=== PATIENT | male | born 1950 | race Two or more races ===

== ENCOUNTER 2019-12-04 05:40 | Inpatient (IN) | payer MEDICARE, MEDICAID ==
[2019-12-04] VITALS (20 sets, daily range): BP systolic 129–172; BP diastolic 72–93
[~2019-12-04] VITALS: Ht 167.6 cm; Wt 81.6 kg
[~2019-12-04 05:40] MED LIST: ceFAZolin sod 1 GM in NS 55 ML IVPB ONE
[2019-12-04] MEDS ORDERED: DIOVAN320 MG ORAL (06:45)
[2019-12-04] MEDS ORDERED: AMLODIPINE BESYL5 MG ORAL (06:45)
[2019-12-04] MEDS ORDERED: CARVEDILOL12.5 MG ORAL (06:45)
[2019-12-04] MEDS ORDERED: LR 1000ml 1,000 ML IVLG SCH (07:17)
--- NOTE | 2019-12-04 07:21 | Anethesia Preoperative Eval ---
Anesthesia Pre-op PMH/ROS General Date of Evaluation: December 04, 2019 Time of Evaluation: 07:26 Anesthesiologist: Sae ASA Score: ASA 3 Mallampati Score Class I : Soft palate, uvula, fauces, pillars visible Class II: Soft palate, uvula, fauces visible Class III: Soft palate, base of uvula visible Class IV: Only hard plate visible Mallampati Classification: Class III Surgeon: Neftali Diagnosis: Bladder Cancer Surgical Procedure: Radical Cystectomy with Neobladder Anesthesia History: none Family History: no anesthesia problems Allergies: Coded Allergies: No Known Allergies (Unverified , 12/04/19) Medications: see eMAR Patient NPO?: Yes NPO Date: December 03, 2019 NPO Time: 1900 Past Medical History Cardiovascular: Reports: HTN Gastrointestinal/Genitourinary: Reports: GERD, other - BPH, Bladder CA Other: obesity - BMI 31 PSxH Narrative: TURBT Anesthesia Pre-op Phys. Exam Physician Exam Last Vital Signs Date Time Temp Pulse Resp B/P (MAP) Pulse Ox O2 Delivery O2 Flow Rate FiO2 12/04/19 06:48 Room Air 12/04/19 06:24 97.4 46 18 147/86 (106) 97 Constitutional: NAD Neurologic: CN 2-12 intact Cardiovascular: RRR Respiratory: CTA Gastrointestinal: S/NT/ND Airway Exam Mallampati Score: Class III MO: limited ROM: limited Teeth: missing Dentures: upper, lower Anesthesia Pre-op A/P Risk Assessment & Plan Assessment: ASA 3 Plan: GA, SED, GlideScope Status Change Before Surgery: No Pre-Antibiotics Dru Mg Flagyl, 2 Grams Cefoxitin IV Given Within 1 Hr of Incision: Yes Time Given: 07:51 Niraj Quevedo MD December 04, 2019 07:21
[2019-12-04] MEDS ORDERED: Rocuronium Bromide 50mg/5ml Inj IV ONE (07:23)
[2019-12-04] MEDS ORDERED: Midazolam 2mg/2ml Inj IVP PRN (07:30)
[2019-12-04] MEDS ORDERED: LR 1000ml ONE (07:30)
[2019-12-04] MEDS ORDERED: oxyCODONE HCL/Acetaminophen 5/325mg ORAL PRN (07:30)
[2019-12-04] MEDS ORDERED: Acetaminophen (Non formulary) 100 ML IV ONE (07:30)
[2019-12-04] MEDS ORDERED: HYDROcodone/Acetamin 7.5/325 tab ORAL PRN (07:30)
[2019-12-04] MEDS ORDERED: DiphenhydrAMINE 50mg/ml Inj IVP PRN (07:30)
[2019-12-04] MEDS ORDERED: Ketorolac 30mg Inj IV PRN ×2 (07:30)
[2019-12-04] MEDS ORDERED: Sterile Water Irrig 1000ml IRRIG ONE (07:30)
[2019-12-04] MEDS ORDERED: NS Irrig 1000ml ONE (07:30)
[2019-12-04] MEDS ORDERED: Metoclopramide 10mg/2ml Inj IVP PRN (07:30)
[2019-12-04] MEDS ORDERED: Labetalol 5mg/ml 20ml vial IV PRN (07:30)
[2019-12-04] MEDS ORDERED: fentaNYL 100 mcg/2 mL IV PRN (07:30)
[2019-12-04] MEDS ORDERED: Meperidine 25mg/0.5ml Inj (FOR RIGORS ONLY) IV PRN (07:30)
[2019-12-04] MEDS ORDERED: Atropine Sulfate 0.4mg/ml inj IVP PRN (07:30)
[2019-12-04] MEDS ORDERED: HYDROcodone/Acetamin 5/325 tab ORAL PRN (07:30)
[2019-12-04] MEDS ORDERED: LORazepam Inj 2mg/ml 1ml IV PRN (07:30)
[2019-12-04] MEDS ORDERED: Hydromorphone 0.5mg/0.5ml inj IVP PRN (07:30)
[2019-12-04] MEDS ORDERED: Sodium Chloride 10ml vial INJ ONE (07:37)
[2019-12-04] MEDS ORDERED: Dexamethasone 4mg/ml vial ONE (07:37)
[2019-12-04] MEDS ORDERED: Lidocaine 1% MPF 10mg/ml 5ml ONE (07:37)
[2019-12-04] MEDS ORDERED: fentaNYL 100 mcg/2 mL IV ONE ×2 (07:42→08:44)
[2019-12-04] MEDS ORDERED: ProvayBlue 5mg/ml 10ml amp INJ ONE (07:45)
[2019-12-04] MEDS ORDERED: cefOXitin 2gm Inj ONE (07:48)
[2019-12-04] MEDS ORDERED: NS Irrig 1000ml IRRIG ONE (08:00)
--- NOTE | 2019-12-04 08:14 | Pre-Procedure Note/Attestation ---
Pre-Procedure Note/Attestation Complete Prior to Procedure Planned Procedure: not applicable Procedure Narrative: cysto prostatectomy with neobladder Indications for Procedure Pre-Operative Diagnosis: bladder cancer Attestation I attest that I discussed the nature of the procedure; its benefits; risks and complications; and alternatives (and the risks and benefits of such alternatives ), prior to the procedure, with the patient (or the patient's legal practice representative). I attest that, if there was a reasonable possibility of needing a blood transfusion, the patient (or the patient's legal practice representative) was given the [facility] standardized written summary, pursuant to the Osmar Harvey Blood Safety Act ([place] Health and Safety Code # 1645, as amended). I attest that I re-evaluated the patient just prior to the surgery and that there has been no change in the patient's H&P, except as documented below: Darci Lindsay MD December 04, 2019 08:14
--- NOTE | 2019-12-04 08:38 | Immediate Post-Op Evaluation ---
Immediate Post-Op Evalulation Immediate Post-Op Evalulation Procedure: Radical Cystectomy with Neobladder Date of Evaluation: December 04, 2019 Time of Evaluation: 12:37 IV Fluids: 2000 LR Blood Products: 1000 ALB Estimated Blood Loss: 200 Urinary Output: 200 Blood Pressure Systolic: 162 Blood Pressure Diastolic: 88 Pulse Rate: 67 Respiratory Rate: 16 O2 Sat by Pulse Oximetry: 98 Temperature (Fahrenheit): 98.7 Pain Score (1-10): 2 Nausea: No Vomiting: No Complications 0 Patient Status: awake, reacts, patent, extubated, none Hydration Status: adequate Dru Mg Flagyl, 2 Grams Cefoxitin IV Given Within 1 Hr of Incision: Yes Time Given: 07:51 Niraj Quevedo MD December 04, 2019 08:38
[2019-12-04] MEDS ORDERED: Glycopyrrolate 0.2mg/ml 1ml Vial ONE (11:44)
--- NOTE | 2019-12-04 12:16 | Brief Operative Note ---
Immediate Post Operative Note Operative Note Pre-op Diagnosis: bladder cancer Procedure: radical cystectomy and prostatectomy neobladder Post-op Diagnosis: same Post-op Diagnosis: same as pre-op Surgeon: Mayo Lindsay Ware Carrier: David Eaton Anesthesia: general Specimen: yes Complications: none Condition: stable Fluids: 4000 Estimated Blood Loss: minimal Drains: PELON Implant(s) used?: No Darci Lindsay MD December 04, 2019 12:16
[2019-12-04 13:02] LABS: BASOPHILS % (AUTO) 0.9 % (0.0-2.0); EOSINOPHILS % (AUTO) 0.1 % (0.0-3.0); HEMATOCRIT 38.3 % (42.0-52.0); HEMOGLOBIN 12.8 G/DL (14.2-18.0); LYMPHOCYTES % (AUTO) 14.7 % (20.0-45.0); MEAN CORPUSCULAR VOLUME 89 FL (80-99); MONOCYTES % (AUTO) 5.7 % (1.0-10.0); NEUTROPHILS % (AUTO) 78.6 % (45.0-75.0); PLATELET COUNT 141 K/UL (150-450); RED BLOOD COUNT 4.31 M/UL (4.70-6.10); RED CELL DISTRIBUTION WIDTH 14.3 % (11.6-14.8); WHITE BLOOD COUNT 5.5 K/UL (4.8-10.8)
[2019-12-04 13:28] LABS: ANION GAP 15 mmol/L (5-15); BLOOD UREA NITROGEN 14 mg/dL (7-18); CALCIUM 7.9 MG/DL (8.5-10.1); CARBON DIOXIDE 20 MMOL/L (21-32); CHLORIDE 108 MMOL/L (98-107); POTASSIUM 4.4 MMOL/L (3.5-5.1); SODIUM 143 MMOL/L (136-145)
--- NOTE | 2019-12-04 13:45 | NUR ---
NURSE NOTES: Patient arrived safely to 3E, room 321. Vital sign are stable, patient is asleep. Serosanguinous drainage noted from PELON, suprapubic catheter and guzman catheter. IV is patent and asymptomatic, running fluids as ordered. Bed is in low and locked position, side rails up x2, call light within reach.
--- NOTE | 2019-12-04 14:15 | NUR ---
NURSE NOTES: Patient's systolic blood pressure above 160, Doctor Janessa was called. However, when patient was given IV pain medication, his blood pressure dropped to 129/75. No new orders were given, but home PO meds are to held until further notice per Dr. jones.
--- NOTE | 2019-12-04 15:29 | NUR ---
CASE MANAGEMENT: INITIAL REVIEW 69YR OLD MALE HERE FOR ELECTIVE SURGERY CC: BLADDER CANCER SI:BLADDER CANCER 97.4 46 18 147/86 97% ON RA BG 173 CA+7.9 IS: IN SURGERY NOW RADICAL OPEN CYSTECTOMY, HEMICOLECTOMY AND PROSTATECTOMY NEOBLADDER ILEO CONDUIT URINARY DIVERSION, AND APPENDECTOMY IV ANCEF X1 IVF NS BOLUS X1 \: 3E MED SURG UNIT DCP: HOME WHEN STABLE
[2019-12-04] MEDS: D5 1/2NS w/KCl 20mEq 1,000 ML IV SCH ×2 (16:45→23:46)
[2019-12-04] MEDS: cefOXitin Sod 2 GM in D5W 110 ML IV SCH ×2 (16:45→21:10)
--- NOTE | 2019-12-04 19:30 | NUR ---
NURSE NOTES: Report received from TRAVIS Conroy. Patient in stable condition. Alert and oriented x 4. NC on 3L. No acute distress. PELON drain noted in the Left side. Patient has a guzman patent and draining, bright red output. Patient also has suprapubic RUQ Draining well. Patient reports pain aggravated by movement. IVF running and access is intact. Bed is in low and locked positionn. Side rails up x.2. Will monitor patient.
--- NOTE | 2019-12-04 19:35 | NUR ---
HAND-OFF: Report given to TATUM ROBLES.
[2019-12-05] VITALS: BP 100/59
[2019-12-05] MEDS: cefOXitin Sod 2 GM in D5W 110 ML IV SCH (03:52)
[2019-12-05 04:00] VITALS: BP 98/63
--- NOTE | 2019-12-05 04:08 | NUR ---
NURSE NOTES: AT 0000 Vs check, patient had a fever of 100.3 F. Tylenol 650 mg PRN given. Encouraged patient to deep breathe and use IS at bedside. Reassessed temperature, patient is now afebrile with 98.3 F temp. Will continue to monitor.
--- NOTE | 2019-12-05 06:10 | NUR ---
NURSE NOTES: During my shift, patient had a total suprapubic urine output of 400 mL, bright red serosanguinous output. PELON drain drained 35 mL bright red output. Michael catheter output was 5mL dark savanna fluid. Encouraged patient to deep breath and use IS at bedside. Pain well controlled with Dilaudid IV Q3. Patient comfortable and no apparent distress.
[2019-12-05 07:16] LABS: BASOPHILS % (AUTO) 0.2 % (0.0-2.0); EOSINOPHILS % (AUTO) 0.1 % (0.0-3.0); HEMATOCRIT 37.4 % (42.0-52.0); HEMOGLOBIN 12.6 G/DL (14.2-18.0); LYMPHOCYTES % (AUTO) 14.4 % (20.0-45.0); MEAN CORPUSCULAR VOLUME 89 FL (80-99); MONOCYTES % (AUTO) 6.8 % (1.0-10.0); NEUTROPHILS % (AUTO) 78.6 % (45.0-75.0); PLATELET COUNT 161 K/UL (150-450); RED CELL DISTRIBUTION WIDTH 14.3 % (11.6-14.8); WHITE BLOOD COUNT 9.8 K/UL (4.8-10.8)
[2019-12-05 07:18] LABS: ANION GAP 9 mmol/L (5-15); BLOOD UREA NITROGEN 16 mg/dL (7-18); CALCIUM 7.8 MG/DL (8.5-10.1); CARBON DIOXIDE 24 MMOL/L (21-32); CHLORIDE 107 MMOL/L (98-107); CREATININE 1.8 MG/DL (0.55-1.30); POTASSIUM 4.5 MMOL/L (3.5-5.1); SODIUM 140 MMOL/L (136-145)
--- NOTE | 2019-12-05 07:55 | NUR ---
NURSE NOTES: Report given to TRAVIS Cook. Patient in stable condition,
[2019-12-05 08:00] VITALS: BP 133/69
[2019-12-05] MEDS: D5 1/2NS w/KCl 20mEq 1,000 ML IV SCH ×3 (08:29→22:02)
--- NOTE | 2019-12-05 08:45 | NUR ---
NURSE NOTES: Received report from Pat ROBLES. Patient is awake and oriented, reporting abdominal pain rated 8/10, medicated per order. Surgical site dry and intact. SCD's on. Michael to gravity drainage, suprapubic catheter draining, both draining red colored urine. PELON drain compressed. IVF running per order. Patient updated on plan of care for the day. Side rails upx2, bed low and locked, call light within reach, bed alarm armed.
--- NOTE | 2019-12-05 10:08 | NUR ---
P.T Note: P.T consult received. P.T evaluation/tx attempted however pt unable to participate due to severe pain in abdomen aggravated by movement despite pain medication taken prior to P.T attempt. Will retry as patient tolerates. RN notified.
[2019-12-05 12:00] VITALS: BP 131/69
[2019-12-05] MEDS ORDERED: cefOXitin 2gm Inj IM SCH (12:00)
[2019-12-05] MEDS: cefOXitin 2gm in D5W 110ml IVPB SCH ×2 (12:47→17:43)
--- NOTE | 2019-12-05 13:23 | 48 Hour Post Anesthesia Eval ---
Post Anesthesia Evaluation Procedure: Radical Cystectomy with Neobladder Date of Evaluation: December 05, 2019 Time of Evaluation: 13:21 Blood Pressure Systolic: 132 0: 76 Pulse Rate: 78 Respiratory Rate: 18 Temperature (Fahrenheit): 97.5 O2 Sat by Pulse Oximetry: 98 Airway: patent Nausea: No Vomiting: No Pain Intensity: 3 Hydration Status: adequate Cardiopulmonary Status: stable Mental Status/LOC: patient returned to baseline Follow-up Care/Observations: n/a Post-Anesthesia Complications: none Follow-up care needed: N/A Edy Barrientos MD December 05, 2019 13:23
[2019-12-05 16:00] VITALS: BP 125/67
--- NOTE | 2019-12-05 16:08 | NUR ---
P.T Note: late entry 1330 P.T evaluation reattempted this PM and completed. Pt. premedicated prior to P.T evaluation. Pt demonstrated limited participation in ADL/functional mobility and gait/locomotion secondary to dizziness and increased pain on the abdomen ( surgical site. Pt required extended time and MOD A X 1 to transition from supine to/from sitting position and MIN A x 1 to transition from sitting to/from standing. Pt was able to ambulate and tolerate 25 ft using the FWW with MIN A X 1. Pt encouraged to sit in chair/recliner however requested to go back to bed due to fatigue dizziness. Vitals taken and remain stable. Will progress activities as tolerated. Pt is cleared for OOB activities with nursing assist and FWW in the room.
--- NOTE | 2019-12-05 16:44 | Consultation ---
DATE OF CONSULTATION: 12/05/2019 INTERNAL MEDICINE CONSULTATION HISTORY OF PRESENT ILLNESS: This is a 69-year-old male who has undergone urologic surgery yesterday by Dr. Darci Lindsay. The surgery consisted of radical cystectomy and prostatectomy as well as neobladder formation. Currently, patient states he is feeling well. PAST MEDICAL HISTORY: Notable for bladder carcinoma, hypertension, hyperlipidemia, degenerative joint disease, osteoarthritis, hypovitaminosis D. HOME MEDICATIONS: Norvasc, Coreg, valsartan, Proscar, Naprosyn, and vitamin D. SOCIAL HISTORY: Denies alcohol and tobacco usage. REVIEW OF SYSTEMS: Denies any headaches, hematemesis, melena, hematochezia. PHYSICAL EXAMINATION: GENERAL: Reveals a 69-year-old male. VITAL SIGNS: Currently blood pressure 130/60, heart rate 60, respirations , afebrile. HEENT: Unremarkable. LUNGS: Clear breath sounds. ABDOMEN: Soft. NEUROLOGIC: Nonfocal. LABORATORY DATA: Lab testing preoperatively is unremarkable. Postoperatively, his hemoglobin is 10.6, white count is normal. Creatinine 1.8. IMPRESSION: 1. Postop day #1 status post cystectomy, prostatectomy and neobladder formation. 2. Hypertension. DISCUSSION: Admitted to the hospital. Continue postoperative care. IV fluids. Advance diet once cleared by Surgery. Currently, the patient is NPO. We will follow carefully. Lázaro Riddle M.D. DR: Amrit JOB#: [id number] CC:
--- NOTE | 2019-12-05 18:15 | Consultation ---
History of Present Illness General Date patient seen: December 05, 2019 Present Illness HPI This is a very pleasant 69 year old male s/p currently admitted post op secondary prostatectomy a neobladder creation with implantation of the ureters into the neobladder internally. Requiring bowel surgery. Postoperative with abd pain, not moving much, drains requiring care. surgery called to evaluate and assist with care. patient seen, chart reviewed, patient examined. discussed care with urology and RN patient laying in bed not very comfortable. States too much pain to move around. Pain control difficult for him currently. Drains noted. Exam as below. Allergies: Coded Allergies: No Known Allergies (Unverified , 12/04/19) COVID-19 Screening Contact w/high risk pt: No Recent Travel to affected area: No Experienced COVID-19 symptoms?: No Medication History Scheduled Amlodipine Besylate* (Amlodipine Besylate*), 5 MG ORAL DAILY, (Reported) Carvedilol* (Carvedilol*), 12.5 MG ORAL EVERY 12 HOURS, (Reported) Valsartan (Diovan), 320 MG ORAL DAILY, (Reported) Patient History History Provided By: Patient, Medical Record, PMD Healthcare decision maker Resuscitation status Advanced Directive on File Past Medical/Surgical History Past Medical/Surgical History: (1) S/P radical cystoprostatectomy Review of Systems Review of Symptoms General ROS: no weight loss or fever Psychological ROS: no depression or mood changes, no memory loss Ophthalmic ROS: no visual changes or eye irritation ENT ROS: no nasal congestion, hearing loss, dizziness Allergy and Immunology ROS: no allergic symptoms or urticaria Hematological and Lymphatic ROS: no swollen glands, unusual bleeding or bruising Endocrine ROS: no polyuria, polydipsia, weight changes, temperature intolerance Respiratory ROS: no cough, shortness of breath, or wheezing Cardiovascular ROS: no chest pain or dyspnea on exertion Gastrointestinal ROS: abdominal pain, bright red blood in stool. Musculoskeletal ROS: no myalgias or arthralgias Neurological ROS: no TIA or stroke symptoms Dermatological ROS: no new or changing skin lesions, rashes or pruritis Physical Exam Physical Exam General appearance: alert, cooperative, no distress, appears stated age Head: Normocephalic, without obvious abnormality, atraumatic Eyes: conjunctivae/corneas clear. PERRL, EOM's intact. Fundi benign Throat: Lips, mucosa, and tongue normal. Teeth and gums normal Neck: supple, symmetrical, trachea midline, no adenopathy, thyroid: not enlarged, symmetric, no tenderness/mass/nodules, no carotid bruit and no JVD Lungs: clear to auscultation bilaterally Heart: regular rate and rhythm, S1, S2 normal, no murmur, click, rub or gallop Abdomen: soft, tender. Bowel sounds absent No masses, no organomegaly, dressings okay. suprapubic drain, guzman, julien drain Extremities: extremities normal, atraumatic, no cyanosis or edema Pulses: 2+ and symmetric Skin: Skin color, texture, turgor normal. No rashes or lesions Neurologic: Grossly normal Last 24 Hour Vital Signs Date Time Temp Pulse Resp B/P (MAP) Pulse Ox O2 Delivery O2 Flow Rate FiO2 12/05/19 16:00 98.5 90 18 125/67 (86) 93 12/05/19 13:23 78 18 98 12/05/19 12:00 98.8 74 18 131/69 (89) 92 12/05/19 09:00 Room Air 12/05/19 08:00 98.7 68 18 133/69 (90) 97 12/05/19 04:00 98.3 75 18 98/63 (75) 97 12/05/19 03:29 100.3 12/05/19 00:28 100.3 12/05/19 00:00 100.3 77 18 100/59 (73) 98 12/04/19 21:00 Nasal Cannula 3.0 12/04/19 20:00 98.7 77 21 148/80 (102) 98 Intake and Output 12/04/19 12/05/19 19:00 07:00 Intake Total 3650 ml 125 ml Output Total 1320 ml 435 ml Balance 2330 ml -310 ml Intake IV Total 2400 ml 125 ml Blood Product 1250 ml Output Urine Total 1180 ml 400 ml Drainage Total 140 ml 35 ml Laboratory Tests Test 12/05/19 05:20 White Blood Count 9.8 K/UL (4.8-10.8) # Red Blood Count 4.20 M/UL (4.70-6.10) L Hemoglobin 12.6 G/DL (14.2-18.0) L Hematocrit 37.4 % (42.0-52.0) L Mean Corpuscular Volume 89 FL (80-99) Mean Corpuscular Hemoglobin 29.9 PG (27.0-31.0) Mean Corpuscular Hemoglobin Concent 33.5 G/DL (32.0-36.0) Red Cell Distribution Width 14.3 % (11.6-14.8) Platelet Count 161 K/UL (150-450) Mean Platelet Volume 8.0 FL (6.5-10.1) Neutrophils (%) (Auto) 78.6 % (45.0-75.0) H Lymphocytes (%) (Auto) 14.4 % (20.0-45.0) L Monocytes (%) (Auto) 6.8 % (1.0-10.0) Eosinophils (%) (Auto) 0.1 % (0.0-3.0) Basophils (%) (Auto) 0.2 % (0.0-2.0) Sodium Level 140 MMOL/L (136-145) Potassium Level 4.5 MMOL/L (3.5-5.1) Chloride Level 107 MMOL/L (98-107) Carbon Dioxide Level 24 MMOL/L (21-32) Anion Gap 9 mmol/L (5-15) Blood Urea Nitrogen 16 mg/dL (7-18) Creatinine 1.8 MG/DL (0.55-1.30) #H Estimat Glomerular Filtration Rate 37.4 mL/min (>60) Glucose Level 147 MG/DL (74-106) H Calcium Level 7.8 MG/DL (8.5-10.1) L Height (Feet): 5 Height (Inches): 6.00 Weight (Pounds): 183 Medications Current Medications Medications (Trade) Dose Ordered Sig/Octavia Route PRN Reason Start Time Stop Time Status Last Admin Dose Admin Acetaminophen (Tylenol) 650 mg Q6H PRN ORAL Mild Pain (Pain Scale 1-3) 12/04/19 12:15 01/03/20 12:14 12/04/19 23:58 Cefoxitin Sodium 2 gm/Dextrose 110 ml @ 220 mls/hr Q6HR IVPB 12/05/19 12:00 12/12/19 11:59 12/05/19 17:43 Dextrose/ Electrolytes 1,000 ml @ 125 mls/hr Q8H IV 12/04/19 16:00 01/03/20 15:59 12/05/19 16:31 Hydromorphone HCl (Dilaudid) 2 mg Q3H PRN IVP pain score 7-10 12/04/19 12:15 12/11/19 12:14 12/05/19 16:35 Assessment/Plan Problem List: (1) S/P radical cystoprostatectomy Assessment & Plan: abd pain not ambulatory drains evaluated flush guzman and suprapubic with 30cc NS TID ambulate and out of bed monitor labs will change pain rx to help control incentive spirometry ICD Codes: Z90.79 - Acquired absence of other genital organ(s); Z90.6 - Acquired absence of other parts of urinary tract SNOMED: [id number], [id number] Keenan Arteaga December 05, 2019 18:15
--- NOTE | 2019-12-05 19:47 | NUR ---
HAND-OFF: Report given to Pat ROBLES.
--- NOTE | 2019-12-05 19:50 | NUR ---
NURSE NOTES: Received report from TRAVIS Coko. Patient in stable condition. PELON drain, guzman and suprapubic catheter noted. Draining bright red serosanguineous output. Patient complaining of pain. Will give pain medication as needed. Also irrigated and flushed guzman and suprapubic catheter with NS as needed.
[2019-12-05 20:00] VITALS: BP 112/73
[2019-12-06] VITALS: BP 118/68
[2019-12-06 04:00] VITALS: BP 111/66
--- NOTE | 2019-12-06 04:43 | NUR ---
NURSE NOTES: Received call from Microbiology. Patient found positive for MRSA in the Nares.
[2019-12-06] MEDS: cefOXitin 2gm in D5W 110ml IVPB SCH ×6 (05:12→23:54)
[2019-12-06 06:39] LABS: BASOPHILS % (AUTO) 0.5 % (0.0-2.0); EOSINOPHILS % (AUTO) 1.3 % (0.0-3.0); HEMATOCRIT 34.4 % (42.0-52.0); HEMOGLOBIN 11.6 G/DL (14.2-18.0); MEAN CORPUSCULAR VOLUME 89 FL (80-99); MONOCYTES % (AUTO) 10.6 % (1.0-10.0); NEUTROPHILS % (AUTO) 74.8 % (45.0-75.0); PLATELET COUNT 147 K/UL (150-450); RED BLOOD COUNT 3.87 M/UL (4.70-6.10); RED CELL DISTRIBUTION WIDTH 14.3 % (11.6-14.8); WHITE BLOOD COUNT 9.5 K/UL (4.8-10.8)
[2019-12-06] MEDS: D5 1/2NS w/KCl 20mEq 1,000 ML IV SCH ×3 (07:47→18:20)
--- NOTE | 2019-12-06 07:55 | NUR ---
NURSE NOTES: Report received from Charan ROBLES, rounds made. Patient sitting in chair, AOx4, calm. No distress on O2 2LNC. Respirations even unlabored. IVF (D5 1/2 NS +20 KCL at 125 ml/hr) infusing to RW, site asymptomatic. Abdomen dressing, with moderate size area of shadow drainage noted. Right suprapubic catheter in place, draining bloody output to drainage bag. FC intact, no output noted in drainage bag. Will irrigate as ordered. Left PELON with serosanguineous output noted to bulb. Encouraged IS, provided rolled blanket to splint abdomen while using IS/coughing. Bilateral SCDs off. Reinforced NPO status, verbalized understanding. Ice chips provided. Call light in reach, will continue to monitor.
[2019-12-06 08:00] VITALS: BP 116/67
[2019-12-06 08:01] LABS: ANION GAP 9 mmol/L (5-15); BLOOD UREA NITROGEN 14 mg/dL (7-18); CARBON DIOXIDE 23 MMOL/L (21-32); CHLORIDE 109 MMOL/L (98-107); CREATININE 1.3 MG/DL (0.55-1.30); POTASSIUM 4.3 MMOL/L (3.5-5.1); SODIUM 141 MMOL/L (136-145)
--- NOTE | 2019-12-06 08:08 | NUR ---
HAND-OFF: Report given to TRAVIS Britton
--- NOTE | 2019-12-06 10:23 | NUR ---
NURSE NOTES: Seen and evaluated by and new order received. Order read back and carried out.
--- NOTE | 2019-12-06 10:29 | Pulmonology Progress Note ---
Subjective Interval Events: None new; still no bowel sounds Constitutional: Reports: no symptoms HEENT: Repors: no symptoms Respiratory: Reports: no symptoms Cardiovascular: Reports: no symptoms Gastrointestinal/Abdominal: Reports: no symptoms Genitourinary: Reports: no symptoms Neurologic: Reports: no symptoms Allergies: Coded Allergies: No Known Allergies (Unverified , 12/04/19) Objective Last 24 Hour Vital Signs Date Time Temp Pulse Resp B/P (MAP) Pulse Ox O2 Delivery O2 Flow Rate FiO2 12/06/19 08:00 98.0 96 18 116/67 (83) 94 12/06/19 04:00 98.1 95 18 111/66 (81) 88 12/06/19 02:19 99.6 12/06/19 00:00 99.6 95 18 118/68 (85) 92 12/05/19 21:00 Room Air 12/05/19 20:00 98.2 95 18 112/73 (86) 92 12/05/19 16:00 98.5 90 18 125/67 (86) 93 12/05/19 13:23 78 18 98 12/05/19 12:00 98.8 74 18 131/69 (89) 92 Intake and Output 12/05/19 12/06/19 19:00 07:00 Intake Total 1485 ml Output Total 545 ml 870 ml Balance 940 ml -870 ml Intake IV Total 1485 ml Output Urine Total 530 ml 825 ml Drainage Total 15 ml 45 ml General Appearance: no acute distress HEENT: normocephalic Respiratory/Chest: chest wall non-tender, lungs clear Cardiovascular: normal peripheral pulses, normal rate Abdomen: absent bowel sounds Extremities: no cyanosis Microbiology Date/Time Source Procedure Growth Status 12/04/19 06:10 Nasal Nares MRSA Culture - Final Staphylococcus Aureus - Mrsa Complete Laboratory Tests 12/06/19 05:15: White Blood Count 9.5, Red Blood Count 3.87L, Hemoglobin 11.6L, Hematocrit 34.4L , Mean Corpuscular Volume 89, Mean Corpuscular Hemoglobin 29.9, Mean Corpuscular Hemoglobin Concent 33.6, Red Cell Distribution Width 14.3, Platelet Count 147L, Mean Platelet Volume 7.4, Neutrophils (%) (Auto) 74.8, Lymphocytes ( %) (Auto) 13.0L, Monocytes (%) (Auto) 10.6H, Eosinophils (%) (Auto) 1.3, Basophils (%) (Auto) 0.5, Sodium Level 141, Potassium Level 4.3, Chloride Level 109H, Carbon Dioxide Level 23, Anion Gap 9, Blood Urea Nitrogen 14, Creatinine 1.3, Estimat Glomerular Filtration Rate 54.4, Glucose Level 146H, Calcium Level 8.0L Current Medications Medications (Trade) Dose Ordered Sig/Octavia Route PRN Reason Start Time Stop Time Status Last Admin Dose Admin Acetaminophen (Tylenol) 650 mg Q6H PRN ORAL Mild Pain (Pain Scale 1-3) 12/04/19 12:15 01/03/20 12:14 12/04/19 23:58 Cefoxitin Sodium 2 gm/Dextrose 110 ml @ 220 mls/hr Q6HR IVPB 12/05/19 12:00 12/12/19 11:59 12/06/19 05:12 Dextrose/ Electrolytes 1,000 ml @ 125 mls/hr Q8H IV 12/04/19 16:00 01/03/20 15:59 12/06/19 07:47 Hydromorphone HCl (Dilaudid) 2 mg Q3H PRN IVP pain score 7-10 12/04/19 12:15 12/11/19 12:14 12/06/19 08:07 Ketorolac Tromethamine (Toradol 30mg) 30 mg Q6H IV 12/06/19 10:15 12/11/19 10:14 UNV Assessment/Plan Assessment/Plan IMPRESSION: 1. Postop day #2 status post cystectomy, prostatectomy and neobladder formation. 2. Hypertension. DISCUSSION: Continue postoperative care. IV fluids. IV abx Advance diet once cleared by Surgery. Currently, the patient is NPO. I will follow carefully. Promise Hsieh Omar Syed MD December 06, 2019 10:29
[2019-12-06 12:00] VITALS: BP 135/74
[2019-12-06] MEDS: Ketorolac 30mg Inj IV SCH ×3 (12:13→23:55)
--- NOTE | 2019-12-06 14:10 | Surgery Progress Note ---
Surgery Progress Note Subjective Additional Comments Patient seen and examined bedside. No acute events. No nausea vomiting fever chills. Patient is in much better spirits today he is up and ambulatory. He sitting in the chair. He states he says abdominal pain some distention but feeling much better today. No nausea vomiting fever chills. Labs noted and stable. Suprapubic catheter and Guzman being flushed 3 times a day. Clearing up well. Objective Last 24 Hour Vital Signs Date Time Temp Pulse Resp B/P (MAP) Pulse Ox O2 Delivery O2 Flow Rate FiO2 12/06/19 08:00 98.0 96 18 116/67 (83) 94 12/06/19 04:00 98.1 95 18 111/66 (81) 88 12/06/19 02:19 99.6 12/06/19 00:00 99.6 95 18 118/68 (85) 92 12/05/19 21:00 Room Air 12/05/19 20:00 98.2 95 18 112/73 (86) 92 12/05/19 16:00 98.5 90 18 125/67 (86) 93 I&O Intake and Output 12/05/19 12/06/19 19:00 07:00 Intake Total 1485 ml Output Total 545 ml 870 ml Balance 940 ml -870 ml Intake IV Total 1485 ml Output Urine Total 530 ml 825 ml Drainage Total 15 ml 45 ml Dressing: dry Wound: clean Drains: lewis Cardiovascular: RSR Respiratory: clear Abdomen: soft, distended, tenderness, decreased bowel sounds Extremities: no tenderness, no cyanosis Laboratory Tests Test 12/06/19 05:15 White Blood Count 9.5 K/UL (4.8-10.8) Red Blood Count 3.87 M/UL (4.70-6.10) L Hemoglobin 11.6 G/DL (14.2-18.0) L Hematocrit 34.4 % (42.0-52.0) L Mean Corpuscular Volume 89 FL (80-99) Mean Corpuscular Hemoglobin 29.9 PG (27.0-31.0) Mean Corpuscular Hemoglobin Concent 33.6 G/DL (32.0-36.0) Red Cell Distribution Width 14.3 % (11.6-14.8) Platelet Count 147 K/UL (150-450) L Mean Platelet Volume 7.4 FL (6.5-10.1) Neutrophils (%) (Auto) 74.8 % (45.0-75.0) Lymphocytes (%) (Auto) 13.0 % (20.0-45.0) L Monocytes (%) (Auto) 10.6 % (1.0-10.0) H Eosinophils (%) (Auto) 1.3 % (0.0-3.0) Basophils (%) (Auto) 0.5 % (0.0-2.0) Sodium Level 141 MMOL/L (136-145) Potassium Level 4.3 MMOL/L (3.5-5.1) Chloride Level 109 MMOL/L (98-107) H Carbon Dioxide Level 23 MMOL/L (21-32) Anion Gap 9 mmol/L (5-15) Blood Urea Nitrogen 14 mg/dL (7-18) Creatinine 1.3 MG/DL (0.55-1.30) Estimat Glomerular Filtration Rate 54.4 mL/min (>60) Glucose Level 146 MG/DL (74-106) H Calcium Level 8.0 MG/DL (8.5-10.1) L Plan Problems: (1) S/P radical cystoprostatectomy Assessment & Plan: abd pain not ambulatory drains evaluated flush guzman and suprapubic with 30cc NS TID ambulate and out of bed monitor labs will change pain rx to help control incentive spirometry Continue n.p.o. until return of bowel function. Given bowel surgery. A.m. labs. No signs of active bleeding. Catheter flushing clearing up. We will continue to follow with recommendations Keenan Arteaga December 06, 2019 14:09
--- NOTE | 2019-12-06 14:47 | NUR ---
NURSE NOTES: Patient ambulated with RN assist. No complain of dizziness or discomfort. Patient tolerated activity well. Will continue to monitor.
--- NOTE | 2019-12-06 15:14 | NUR ---
CASE MANAGEMENT: REVIEW 12/06/19 SI:S/P RADICAL OPEN CYSTECTOMY, HEMICOLECTOMY AND PROSTATECTOMY NEOBLADDER ILEO CONDUIT URINARY DIVERSION, AND APPENDECTOMY BLADDER CANCER . MRSA + 99.6 95 18 118/68 92% ON RA H/H 11.6/34.4 BG 146 CA+8 IS: IV CEFOXITIN Q6HR IV D5@125ML/HR IV DILAUDID Q3HR/PRN IV TORADOL Q6HR TYLENOL Q6HR/PRN \: 3E MED SURG UNIT DCP: HOME WHEN STABLE PLAN: NPO UNTIL BOWEL FUNCTION RETURNS AM LABS CONTROL PAIN
[2019-12-06 16:01] VITALS: BP 134/80
--- NOTE | 2019-12-06 18:30 | NUR ---
NURSE NOTES: Dr. Lindsay notified of outputs, no further orders. Patient has ambulated in halls with RN, x3, up to chair x3, ambulated in room as well. Encouraged IS. Suprapubic and FC irrigated with 30 ml NS as ordered.
--- NOTE | 2019-12-06 19:46 | NUR ---
HAND-OFF: Report given to Charan ROBLES, patient stable.
--- NOTE | 2019-12-06 19:47 | NUR ---
NURSE NOTES: Report received from TRAVIS Britton. Patient sitting in the chair and encouraged to ambulate and use IS. Guzman and suprapubic guzman noted. PELON drain noted. Will continue to monitor.
[2019-12-06 20:00] VITALS: BP 141/80
[2019-12-06] MEDS: DiphenhydrAMINE 50mg/ml Inj IVP PRN (22:54)
[2019-12-07] VITALS (7 sets, daily range): BP systolic 142–177; BP diastolic 61–107
--- NOTE | 2019-12-07 03:03 | NUR ---
NURSE NOTES: Patient vomited 2x about 100 mL total. 1st time emesis, zofran was given. Patient reports some relief. About 0250, patient vomited the second time. Emesis was greenish liquid in color. Patient reports pressure in the abdomen. hypoactive bowel sounds heard in all quadrants. Will continue to monitor patient.
--- NOTE | 2019-12-07 04:44 | NUR ---
NURSE NOTES: Patient BP 0400 vitals show BP of177/107. Reassessed and it was 163/71. Patient reports pressure inthe abdomen.
[2019-12-07] MEDS: D5 1/2NS w/KCl 20mEq 1,000 ML IV SCH ×3 (06:10→18:02)
[2019-12-07] MEDS: cefOXitin 2gm in D5W 110ml IVPB SCH ×3 (06:10→18:01)
[2019-12-07] MEDS: Ketorolac 30mg Inj IV SCH ×3 (06:14→18:00)
[2019-12-07 06:28] LABS: BASOPHILS % (AUTO) 0.4 % (0.0-2.0); EOSINOPHILS % (AUTO) 1.9 % (0.0-3.0); HEMATOCRIT 33.4 % (42.0-52.0); HEMOGLOBIN 11.2 G/DL (14.2-18.0); LYMPHOCYTES % (AUTO) 10.2 % (20.0-45.0); MEAN CORPUSCULAR VOLUME 88 FL (80-99); MONOCYTES % (AUTO) 11.2 % (1.0-10.0); NEUTROPHILS % (AUTO) 76.3 % (45.0-75.0); PLATELET COUNT 150 K/UL (150-450); RED BLOOD COUNT 3.77 M/UL (4.70-6.10); WHITE BLOOD COUNT 7.7 K/UL (4.8-10.8)
[2019-12-07 07:01] LABS: ANION GAP 9 mmol/L (5-15); BLOOD UREA NITROGEN 13 mg/dL (7-18); CALCIUM 8.4 MG/DL (8.5-10.1); CARBON DIOXIDE 23 MMOL/L (21-32); CHLORIDE 110 MMOL/L (98-107); CREATININE 1.3 MG/DL (0.55-1.30); POTASSIUM 4.3 MMOL/L (3.5-5.1); SODIUM 142 MMOL/L (136-145)
--- NOTE | 2019-12-07 07:16 | NUR ---
NURSE NOTES: Report received from Charan ROBLES. Patient had two emesis episodes (total 100 ml), Dr. Lindsay updated, orders received for NS Bolus 500 ml x1 and Protonix/Pepcid IV per pharmacy to dose. See orders.
--- NOTE | 2019-12-07 07:44 | NUR ---
HAND-OFF: Report given to TRAVIS Britton. Patient in stable condition.
--- NOTE | 2019-12-07 08:00 | NUR ---
NURSE NOTES: Patient resting in low semi-fowlers position. AOx4, calm. Respirations even/unlabored on RA, O2 sats 94 %. Abdomen soft, distended, round, mild tender to touch, BS hypoactive in all quadrants, denies nausea or vomiting at this time, or need for Zofran. Patient denies flatulence. Abdominal dressing remains unchanged, moderate amount shadow drainage noted. Left PELON, serosanguineous output noted, Suprapubic/FC bloody output noted in drainage bag. IVF (D5 1/2 +20 KCL at 125 ml/hr) to LFA, site asymptomatic. Bilateral SCDs on. Call light in reach, bed in lowest position, will continue to monitor.
[2019-12-07] MEDS: Pantoprazole Inj IVP SCH (08:42)
--- NOTE | 2019-12-07 11:15 | NUR ---
NURSE NOTES: Patient had episode of nausea and vomiting at this time, emesis 5 ml, yellow/brown bile. Medicated with Zofran. Provided oral mouth care. HOB elevated. Will continue to monitor. Addendum: 12/07/19 at 1343 by Reba French RN Remains NPO.
--- NOTE | 2019-12-07 12:03 | Pulmonology Progress Note ---
Subjective Interval Events: None new; still no bowel sounds; has emesis Constitutional: Reports: no symptoms HEENT: Repors: no symptoms Respiratory: Reports: no symptoms Cardiovascular: Reports: no symptoms Gastrointestinal/Abdominal: Reports: no symptoms Genitourinary: Reports: no symptoms Neurologic: Reports: no symptoms Allergies: Coded Allergies: No Known Allergies (Unverified , 12/04/19) Objective Last 24 Hour Vital Signs Date Time Temp Pulse Resp B/P (MAP) Pulse Ox O2 Delivery O2 Flow Rate FiO2 12/07/19 08:13 Room Air 12/07/19 08:00 97.9 83 20 151/83 (105) 94 12/07/19 06:44 98.4 12/07/19 05:21 98.4 12/07/19 04:00 98.4 92 20 177/107 (130) 99 12/07/19 00:00 98.4 97 20 156/61 (92) 97 12/06/19 21:00 Room Air 12/06/19 20:00 99.0 100 20 141/80 (100) 99 12/06/19 16:01 98.6 85 18 134/80 (98) 93 Intake and Output 12/06/19 12/07/19 19:00 07:00 Intake Total 810 ml 125 ml Output Total 780 ml 510 ml Balance 30 ml -385 ml Intake IV Total 750 ml Other 60 ml 125 ml Output Urine Total 750 ml 450 ml Drainage Total 30 ml 60 ml General Appearance: no acute distress HEENT: normocephalic Respiratory/Chest: chest wall non-tender, lungs clear Cardiovascular: normal peripheral pulses, normal rate Abdomen: absent bowel sounds Extremities: no cyanosis Laboratory Tests 12/07/19 05:15: White Blood Count 7.7, Red Blood Count 3.77L, Hemoglobin 11.2L, Hematocrit 33.4L , Mean Corpuscular Volume 88, Mean Corpuscular Hemoglobin 29.8, Mean Corpuscular Hemoglobin Concent 33.6, Red Cell Distribution Width 14.0, Platelet Count 150, Mean Platelet Volume 7.0, Neutrophils (%) (Auto) 76.3H, Lymphocytes ( %) (Auto) 10.2L, Monocytes (%) (Auto) 11.2H, Eosinophils (%) (Auto) 1.9, Basophils (%) (Auto) 0.4, Sodium Level 142, Potassium Level 4.3, Chloride Level 110H, Carbon Dioxide Level 23, Anion Gap 9, Blood Urea Nitrogen 13, Creatinine 1.3, Estimat Glomerular Filtration Rate 54.4, Glucose Level 148H, Calcium Level 8.4L Current Medications Medications (Trade) Dose Ordered Sig/Octavia Route PRN Reason Start Time Stop Time Status Last Admin Dose Admin Acetaminophen (Tylenol) 650 mg Q6H PRN ORAL Mild Pain (Pain Scale 1-3) 12/04/19 12:15 01/03/20 12:14 12/04/19 23:58 Cefoxitin Sodium 2 gm/Dextrose 110 ml @ 220 mls/hr Q6HR IVPB 12/05/19 12:00 12/12/19 11:59 12/07/19 11:45 Dextrose/ Electrolytes 1,000 ml @ 125 mls/hr Q8H IV 12/04/19 16:00 01/03/20 15:59 12/07/19 06:10 Diphenhydramine HCl (Benadryl) 25 mg Q6H PRN IVP Itching 12/06/19 14:15 01/05/20 14:14 12/06/19 22:54 Hydromorphone HCl (Dilaudid) 2 mg Q3H PRN IVP pain score 7-10 12/04/19 12:15 12/11/19 12:14 12/07/19 04:51 Ketorolac Tromethamine (Toradol 30mg) 30 mg Q6HR IV 12/06/19 12:00 12/11/19 11:59 12/07/19 11:46 Ondansetron HCl (Zofran) 4 mg Q6H PRN IVP Nausea & Vomiting 12/06/19 14:15 01/05/20 14:14 12/07/19 11:10 Pantoprazole (Protonix) 40 mg DAILY IVP 12/07/19 09:00 01/06/20 08:59 12/07/19 08:42 Assessment/Plan Assessment/Plan IMPRESSION: 1. Postop day #3 status post cystectomy, prostatectomy and neobladder formation. 2. Hypertension. DISCUSSION: Continue postoperative care. IV fluids. IV abx Advance diet once cleared by Surgery. Currently, the patient is NPO. Also having emesis; receiving Zofran I will follow carefully. Promise Hsieh Omar Syed MD December 07, 2019 12:03
--- NOTE | 2019-12-07 13:00 | NUR ---
NURSE NOTES: Dr. Riddle paged to review vitals, elevated blood pressure and home medications, awaiting chemical equipment controller back.
--- NOTE | 2019-12-07 14:58 | NUR ---
NURSE NOTES: Patient continues to complain of mild nausea, abdominal pain. Reassessed abdomen slightly more firm, distended, bowel sounds remains hypoactive, a little less, still no flatulence. Dr. Arteaga updated with patient current status. Advised to continue medicating with Zofran, pain medications, IS use and ambulation. Will continue to monitor.
--- NOTE | 2019-12-07 18:00 | NUR ---
NURSE NOTES: Reviewed vitals, elevated blood pressure and home medications with Dr. Arteaga. No further orders.
--- NOTE | 2019-12-07 18:19 | Surgery Progress Note ---
Surgery Progress Note Subjective Additional Comments nausea episode of emesis pain 10/07 resting comfortable now Objective Last 24 Hour Vital Signs Date Time Temp Pulse Resp B/P (MAP) Pulse Ox O2 Delivery O2 Flow Rate FiO2 12/07/19 16:00 98.1 75 18 142/73 (96) 96 12/07/19 13:20 84 150/94 (112) 12/07/19 12:00 98.2 99 20 175/81 (112) 98 12/07/19 08:13 Room Air 12/07/19 08:00 97.9 83 20 151/83 (105) 94 12/07/19 06:44 98.4 12/07/19 05:21 98.4 12/07/19 04:00 98.4 92 20 177/107 (130) 99 12/07/19 00:00 98.4 97 20 156/61 (92) 97 12/06/19 21:00 Room Air 12/06/19 20:00 99.0 100 20 141/80 (100) 99 I&O Intake and Output 12/06/19 12/07/19 19:00 07:00 Intake Total 810 ml 250 ml Output Total 780 ml 510 ml Balance 30 ml -260 ml Intake IV Total 750 ml 125 ml Other 60 ml 125 ml Output Urine Total 750 ml 450 ml Drainage Total 30 ml 60 ml Dressing: dry Wound: clean Drains: other - serosang output Cardiovascular: RSR Respiratory: decreased breath sounds Abdomen: soft, distended, non-tender, decreased bowel sounds Extremities: no tenderness, no cyanosis Laboratory Tests Test 12/07/19 05:15 White Blood Count 7.7 K/UL (4.8-10.8) Red Blood Count 3.77 M/UL (4.70-6.10) L Hemoglobin 11.2 G/DL (14.2-18.0) L Hematocrit 33.4 % (42.0-52.0) L Mean Corpuscular Volume 88 FL (80-99) Mean Corpuscular Hemoglobin 29.8 PG (27.0-31.0) Mean Corpuscular Hemoglobin Concent 33.6 G/DL (32.0-36.0) Red Cell Distribution Width 14.0 % (11.6-14.8) Platelet Count 150 K/UL (150-450) Mean Platelet Volume 7.0 FL (6.5-10.1) Neutrophils (%) (Auto) 76.3 % (45.0-75.0) H Lymphocytes (%) (Auto) 10.2 % (20.0-45.0) L Monocytes (%) (Auto) 11.2 % (1.0-10.0) H Eosinophils (%) (Auto) 1.9 % (0.0-3.0) Basophils (%) (Auto) 0.4 % (0.0-2.0) Sodium Level 142 MMOL/L (136-145) Potassium Level 4.3 MMOL/L (3.5-5.1) Chloride Level 110 MMOL/L (98-107) H Carbon Dioxide Level 23 MMOL/L (21-32) Anion Gap 9 mmol/L (5-15) Blood Urea Nitrogen 13 mg/dL (7-18) Creatinine 1.3 MG/DL (0.55-1.30) Estimat Glomerular Filtration Rate 54.4 mL/min (>60) Glucose Level 148 MG/DL (74-106) H Calcium Level 8.4 MG/DL (8.5-10.1) L Plan Problems: (1) S/P radical cystoprostatectomy Assessment & Plan: abd pain not ambulatory drains evaluated flush guzman and suprapubic with 30cc NS TID ambulate and out of bed monitor labs will change pain rx to help control incentive spirometry Continue n.p.o. until return of bowel function. Given bowel surgery. A.m. labs. No signs of active bleeding. Catheter flushing clearing up. distended nausea possible ileus post op that would be anticipated labs ordered AM KUB cont rx We will continue to follow with recommendations Keenan Arteaga December 07, 2019 18:19
--- NOTE | 2019-12-07 19:46 | NUR ---
HAND-OFF: Report given to Anne Marie ROBLES, rounds made. Patient stable. Endorsed orders for irrigation of suprapubic/guzman catheter (30 ml)
--- NOTE | 2019-12-07 20:00 | NUR ---
NURSE NOTES: RECEIVED PATIENT LYING IN BED, AWAKE, ALERT/ORIENTED X4, VERBALLY RESPONSIVE, S/P RADICAL CYSTECTOMY WITH NEOBLADDER; RADICAL RETROPUBIC PROSTATECTOMY, DRESSING STAINED/INTACT, PER RN, NO ORDER TO CHANGE DRESSING-NO SIGNS AND SYMPTOMS OF ACUTE CARDIO RESPIRATORY DISTRESS/SHORTNESS OF BREATH, DENIES CHEST PAIN, NO EDEMA NOTED, INCENTIVE SPIROMETER AT BEDSIDE (1000). SCD'S INTACT BILATERAL LOWER EXTREMITIES. ABDOMEN NOTED WITH HYPOACTIVE BOWEL SOUNDS, NO N/V. PELON DRAIN NOTED WITH SEROSANGUINEOUS DRAINAGE-DUNLAP CATHETER INTACT/PATENT, HEMATURIA NOTED - SUPRAPUBIC CATHETER INTACT/PATENT, HEMATURIA NOTED, PER RN, MD AWARE. SIDE RAILS UP X2 FOR MOBILITY, BED IN LOWEST POSITION FOR SAFETY, ENCOURAGED PATIENT TO UTILIZE CALL LIGHT FOR ASSISTANCE, VERBALIZED UNDERSTANDING. CONTINUE WITH CURRENT PLAN OF CARE. NAD.
[2019-12-07] MEDS ORDERED: Tubing IV Secondary IV ONE (22:50)
[2019-12-07] MEDS ORDERED: NS Irrig 1000ml ONE (22:50)
[2019-12-07] MEDS ORDERED: NS 500ML ONE (22:50)
[2019-12-08] VITALS (7 sets, daily range): BP systolic 138–165; BP diastolic 76–90
[2019-12-08] MEDS: cefOXitin 2gm in D5W 110ml IVPB SCH ×5 (00:04→23:44)
[2019-12-08] MEDS: Ketorolac 30mg Inj IV SCH ×5 (00:04→23:45)
--- NOTE | 2019-12-08 00:27 | NUR ---
NURSE NOTES: RESTING WELL ON ROUNDS, NAD.
[2019-12-08] MEDS: D5 1/2NS w/KCl 20mEq 1,000 ML IV SCH ×3 (03:00→23:44)
--- NOTE | 2019-12-08 06:06 | NUR ---
NURSE NOTES: PATIENT NPO, ABDOMINAL XRAY (KUB) TODAY, PATIENT AWARE. SAFETY MAINTAINED THROUGHOUT THE NIGHT. VITALS STABLE, AFEBRILE. NAD.
[2019-12-08 06:44] LABS: ALANINE AMINOTRANSFERASE 18 U/L (12-78); ALBUMIN 2.5 G/DL (3.4-5.0); ALBUMIN/GLOBULIN RATIO 0.7 (1.0-2.7); ALKALINE PHOSPHATASE 40 U/L (46-116); ANION GAP 10 mmol/L (5-15); ASPARTATE AMINO TRANSFERASE 29 U/L (15-37); BILIRUBIN,TOTAL 0.6 MG/DL (0.2-1.0); BLOOD UREA NITROGEN 14 mg/dL (7-18); CARBON DIOXIDE 25 MMOL/L (21-32); CHLORIDE 110 MMOL/L (98-107); CREATININE 1.7 MG/DL (0.55-1.30); POTASSIUM 4.4 MMOL/L (3.5-5.1); SODIUM 144 MMOL/L (136-145)
[2019-12-08 06:51] LABS: HEMATOCRIT 34.7 % (42.0-52.0); HEMOGLOBIN 11.4 G/DL (14.2-18.0); MEAN CORPUSCULAR VOLUME 89 FL (80-99); PLATELET COUNT 204 K/UL (150-450); RED BLOOD COUNT 3.92 M/UL (4.70-6.10); RED CELL DISTRIBUTION WIDTH 14.3 % (11.6-14.8)
--- NOTE | 2019-12-08 07:12 | NUR ---
NURSE NOTES: Report received from Anne Marie ROBLES, rounds made. Patient resting in semi-fowlers position in bed. AOX4 calm, no distress on RA. Respirations even/unlabored. IV (D5 1/2 NS +20 KCL at 125 ml/hr) to , site asymptomatic. FC/Suprapubic catheter, draining to gravity, blood tinged output. PELON x1 (left), with serosanguineous output. Abdomen distended, no gas, bs hypoactive. Abdominal tenderness/pain 5-6/10. Abdominal surgical dressing stained, shadow drainage noted. Call light in reach, bed in lowest position, will continue to monitor. Addendum: 12/08/192126 by Reba French RN Remains NPO. Addendum: 12/08/192126 by Reba French RN Oral care provided.
--- NOTE | 2019-12-08 07:30 | NUR ---
HAND-OFF: Report given to TRAVIS DAMON.
--- NOTE | 2019-12-08 08:00 | NUR ---
NURSE NOTES: Dr. Riddle notified of BP trending high and home medications not ordered. No further orders.
--- NOTE | 2019-12-08 08:43 | Diagnostic Imaging Report ---
EXAM: XR Abdomen, 2 Views CLINICAL HISTORY: F/U TECHNIQUE: Frontal view of the abdomen/pelvis with upright view of the abdomen. COMPARISON: No relevant prior studies available. FINDINGS: Intraperitoneal space: No free air. Gastrointestinal tract: There is moderate distention of multiple loops of small bowel however there is bowel gas throughout the colon. The bowel gas pattern is indeterminate between severe ileus and partial small bowel obstruction. Progress films are recommended. Bones/joints: Unremarkable. Tubes, lines and devices: There are postsurgical changes of a midline incision with a surgical drain in the pelvis. There are bilateral nephroureteral stents in place. IMPRESSION: There is moderate distention of multiple loops of small bowel however there is bowel gas throughout the colon. The bowel gas pattern is indeterminate between severe ileus and partial small bowel obstruction. Progress films are recommended.
--- NOTE | 2019-12-08 09:32 | Pulmonology Progress Note ---
Subjective Interval Events: None new; still no bowel sounds; had emesis yesterday Constitutional: Reports: no symptoms HEENT: Repors: no symptoms Respiratory: Reports: no symptoms Cardiovascular: Reports: no symptoms Gastrointestinal/Abdominal: Reports: no symptoms Genitourinary: Reports: no symptoms Neurologic: Reports: no symptoms Allergies: Coded Allergies: No Known Allergies (Unverified , 12/04/19) Objective Last 24 Hour Vital Signs Date Time Temp Pulse Resp B/P (MAP) Pulse Ox O2 Delivery O2 Flow Rate FiO2 12/08/19 08:00 98.0 75 19 158/87 (110) 97 12/08/19 07:09 98.0 12/08/19 05:57 98.0 12/08/19 04:00 98.0 82 18 138/85 (102) 97 12/08/19 00:00 98.0 77 18 156/82 (106) 98 12/07/19 21:00 Room Air 12/07/19 20:00 97.4 84 18 154/84 (107) 99 12/07/19 16:00 98.1 75 18 142/73 (96) 96 12/07/19 13:20 84 150/94 (112) 12/07/19 12:00 98.2 99 20 175/81 (112) 98 Intake and Output 12/07/19 12/08/19 19:00 07:00 Intake Total 995 ml 1530 ml Output Total 860 ml 1290 ml Balance 135 ml 240 ml Intake IV Total 875 ml 1470 ml Other 120 ml 60 ml Output Urine Total 675 ml 1050 ml Emesis 5 ml Drainage Total 180 ml 240 ml General Appearance: no acute distress HEENT: normocephalic Respiratory/Chest: chest wall non-tender, lungs clear Cardiovascular: normal peripheral pulses, normal rate Abdomen: absent bowel sounds Extremities: no cyanosis Laboratory Tests 12/08/19 05:35: White Blood Count 3.0#L, Red Blood Count 3.92L, Hemoglobin 11.4L, Hematocrit 34.7L, Mean Corpuscular Volume 89, Mean Corpuscular Hemoglobin 29.1, Mean Corpuscular Hemoglobin Concent 32.9, Red Cell Distribution Width 14.3, Platelet Count 204, Mean Platelet Volume 6.8, Neutrophils (%) (Auto) , Lymphocytes (%) ( Auto) , Monocytes (%) (Auto) , Eosinophils (%) (Auto) , Basophils (%) (Auto) , Neutrophils % (Manual) [Pending], Lymphocytes % (Manual) [Pending], Platelet Estimate [Pending], Platelet Morphology [Pending], Erythrocyte Sedimentation Rate [Pending], Sodium Level 144, Potassium Level 4.4, Chloride Level 110H, Carbon Dioxide Level 25, Anion Gap 10, Blood Urea Nitrogen 14, Creatinine 1.7H, Estimat Glomerular Filtration Rate 39.9, Glucose Level 163H, Calcium Level 8.0L , Total Bilirubin 0.6, Aspartate Amino Transf (AST/SGOT) 29, Alanine Aminotransferase (ALT/SGPT) 18, Alkaline Phosphatase 40L, C-Reactive Protein, Quantitative 8.2H, Total Protein 6.2L, Albumin 2.5L, Globulin 3.7, Albumin/ Globulin Ratio 0.7L Current Medications Medications (Trade) Dose Ordered Sig/Octavia Route PRN Reason Start Time Stop Time Status Last Admin Dose Admin Acetaminophen (Tylenol) 650 mg Q6H PRN ORAL Mild Pain (Pain Scale 1-3) 12/04/19 12:15 01/03/20 12:14 12/04/19 23:58 Cefoxitin Sodium 2 gm/Dextrose 110 ml @ 220 mls/hr Q6HR IVPB 12/05/19 12:00 12/12/19 11:59 12/08/19 05:15 Dextrose/ Electrolytes 1,000 ml @ 125 mls/hr Q8H IV 12/04/19 16:00 01/03/20 15:59 12/08/19 03:00 Diphenhydramine HCl (Benadryl) 25 mg Q6H PRN IVP Itching 12/06/19 14:15 01/05/20 14:14 12/06/19 22:54 Hydromorphone HCl (Dilaudid) 2 mg Q3H PRN IVP pain score 7-10 12/04/19 12:15 12/11/19 12:14 12/08/19 06:39 Ketorolac Tromethamine (Toradol 30mg) 30 mg Q6HR IV 12/06/19 12:00 12/11/19 11:59 12/08/19 05:27 Ondansetron HCl (Zofran) 4 mg Q6H PRN IVP Nausea & Vomiting 12/06/19 14:15 01/05/20 14:14 12/07/19 11:10 Pantoprazole (Protonix) 40 mg DAILY IVP 12/07/19 09:00 01/06/20 08:59 12/07/19 08:42 Assessment/Plan Assessment/Plan IMPRESSION: 1. Postop day #4 status post cystectomy, prostatectomy and neobladder formation. 2. Hypertension. 3. Post-operatie ileus DISCUSSION: Continue postoperative care. IV fluids. IV abx Advance diet once cleared by Surgery. Currently, the patient is NPO. On prn Zofran I will follow carefully Labs reviewed. Promise Hsieh Omar Syed MD December 08, 2019 09:32
[2019-12-08] MEDS: Pantoprazole Inj IVP SCH (10:00)
--- NOTE | 2019-12-08 10:00 | NUR ---
NURSE NOTES: Dr. Arteaga notified of portable abdominal XR results, no further orders.
--- NOTE | 2019-12-08 12:15 | NUR ---
NURSE NOTES: Dr. Riddle notified of BP 165/[address] Lindsay suggested to have pharmacy recommend IV antihypertensive (which was Vasotec)medication, orders received to notify Dr. Riddle if SBP >180. Will continue to monitor.
--- NOTE | 2019-12-08 15:45 | NUR ---
NURSE NOTES: At 1500 Patient complains of mild SOB while laying in bed, HOB elevated, patient then assisted to dangle at bedside. O2 sat 97%, applied O2 3LNC, sats 99 %. Respirations slightly SOB, which then subsided. Vitals obtained T98 ME 84 RR20 BP163/90. Assisted patient to chair. Call light in reach, will continue to monitor. At 1545, Dr. Arteaga at bedside, surgical dressing removed. Notified of above, no further orders.
--- NOTE | 2019-12-08 16:41 | Surgery Progress Note ---
Surgery Progress Note Subjective Additional Comments feels like he his passing flatus no n/v no f/c labs noted kub noted pain improved ambulatory Objective Last 24 Hour Vital Signs Date Time Temp Pulse Resp B/P (MAP) Pulse Ox O2 Delivery O2 Flow Rate FiO2 12/08/19 11:53 97.7 84 19 165/86 (112) 98 12/08/19 08:00 98.0 75 19 158/87 (110) 97 12/08/19 07:09 98.0 12/08/19 05:57 98.0 12/08/19 04:00 98.0 82 18 138/85 (102) 97 12/08/19 00:00 98.0 77 18 156/82 (106) 98 12/07/19 21:00 Room Air 12/07/19 20:00 97.4 84 18 154/84 (107) 99 I&O Intake and Output 12/07/19 12/08/19 19:00 07:00 Intake Total 995 ml 1530 ml Output Total 860 ml 1290 ml Balance 135 ml 240 ml Intake IV Total 875 ml 1470 ml Other 120 ml 60 ml Output Urine Total 675 ml 1050 ml Emesis 5 ml Drainage Total 180 ml 240 ml Dressing: saturated Wound: clean Cardiovascular: RSR Respiratory: clear Abdomen: soft, distended, non-tender, decreased bowel sounds Extremities: no edema, no tenderness, no cyanosis Laboratory Tests Test 12/08/19 05:35 White Blood Count 3.0 K/UL (4.8-10.8) #L Red Blood Count 3.92 M/UL (4.70-6.10) L Hemoglobin 11.4 G/DL (14.2-18.0) L Hematocrit 34.7 % (42.0-52.0) L Mean Corpuscular Volume 89 FL (80-99) Mean Corpuscular Hemoglobin 29.1 PG (27.0-31.0) Mean Corpuscular Hemoglobin Concent 32.9 G/DL (32.0-36.0) Red Cell Distribution Width 14.3 % (11.6-14.8) Platelet Count 204 K/UL (150-450) Mean Platelet Volume 6.8 FL (6.5-10.1) Neutrophils (%) (Auto) % (45.0-75.0) Lymphocytes (%) (Auto) % (20.0-45.0) Monocytes (%) (Auto) % (1.0-10.0) Eosinophils (%) (Auto) % (0.0-3.0) Basophils (%) (Auto) % (0.0-2.0) Differential Total Cells Counted 100 Neutrophils % (Manual) 58 % (45-75) Lymphocytes % (Manual) 20 % (20-45) Monocytes % (Manual) 13 % (1-10) H Eosinophils % (Manual) 7 % (0-3) H Basophils % (Manual) 0 % (0-2) Band Neutrophils 2 % (0-8) Platelet Estimate Adequate Platelet Morphology Normal Anisocytosis 1+ Erythrocyte Sedimentation Rate 76 MM/HR (0-20) H Sodium Level 144 MMOL/L (136-145) Potassium Level 4.4 MMOL/L (3.5-5.1) Chloride Level 110 MMOL/L (98-107) H Carbon Dioxide Level 25 MMOL/L (21-32) Anion Gap 10 mmol/L (5-15) Blood Urea Nitrogen 14 mg/dL (7-18) Creatinine 1.7 MG/DL (0.55-1.30) H Estimat Glomerular Filtration Rate 39.9 mL/min (>60) Glucose Level 163 MG/DL (74-106) H Calcium Level 8.0 MG/DL (8.5-10.1) L Total Bilirubin 0.6 MG/DL (0.2-1.0) Aspartate Amino Transf (AST/SGOT) 29 U/L (15-37) Alanine Aminotransferase (ALT/SGPT) 18 U/L (12-78) Alkaline Phosphatase 40 U/L (46-116) L C-Reactive Protein, Quantitative 8.2 mg/dL (0.00-0.90) H Total Protein 6.2 G/DL (6.4-8.2) L Albumin 2.5 G/DL (3.4-5.0) L Globulin 3.7 g/dL Albumin/Globulin Ratio 0.7 (1.0-2.7) L Plan Problems: (1) S/P radical cystoprostatectomy Assessment & Plan: abd pain not ambulatory drains evaluated flush guzman and suprapubic with 30cc NS TID ambulate and out of bed monitor labs will change pain rx to help control incentive spirometry Continue n.p.o. until return of bowel function. Given bowel surgery. A.m. labs. No signs of active bleeding. Catheter flushing clearing up. distended nausea possible ileus post op that would be anticipated labs noted kub reviewed likely ileus dressings changed drain monitored awaiting return of bowel function cont rx We will continue to follow with recommendations Keenan Arteaga December 08, 2019 16:41
--- NOTE | 2019-12-08 18:00 | NUR ---
NURSE NOTES: Abdominal [place] to surgical site, CDI, applied ABD pads x3 secured with abdominal binder, tolerated well. Will continue to monitor.
--- NOTE | 2019-12-08 19:50 | NUR ---
HAND-OFF: Report given to Klarissa RN, rounds made. Patient stable. Outputs: Suprapubic: 400 ml FC: 225 ml PELON: 280 ml Patient had small smear/liquid stool x2
--- NOTE | 2019-12-08 19:51 | NUR ---
NURSE NOTES: Received report & pt from TRAVIS Britton. Pt up in chair, a&ox4, in room air. No s/s of acute distress & c/o 3/10 pain. Michael & suprapubic cath intact & draining to gravity. PELON x 1 to bulb suction. Drsg intact with abdominal binder on. IV site intact with IVF running as ordered. Bed in lowest position, call light within reach. Will continue to monitor.
--- NOTE | 2019-12-08 20:16 | NUR ---
HAND-OFF: Report given to TRAVIS DAMON. Addendum: 12/08/19 at 2317 by BEATRIZ HOUSTON LVN NURSE NOTES: CHARTED IN ERROR-
--- NOTE | 2019-12-08 22:14 | NUR ---
NURSE NOTES: Hand-off report from TRAVIS Cyr. rounded and seen pt. AAOX4, resting in bed but c/o pain 03/09. suprapubic cath, guzman intact to gravity draining well, PELON drain intact w/ serosanguinous output, empty and recharge PELON bulb. abdominal dressing intact/clean w/out drainage noted. given Dilaudid for abdominal/incisional pain. SCDs on, call light provided. will continue to monitor and reassess pain.
--- NOTE | 2019-12-09 02:00 | NUR ---
NURSE NOTES: Updated TRAVIS Cyr of meds given to pt's, including I&O and general status as she's continuing pt care as primary nurse. pt is resting comfortably at this time after scheduled Toradol was given earlier. no further needs noted at the moment. VSS
[2019-12-09 04:00] VITALS: BP 171/88
[2019-12-09] MEDS: Ketorolac 30mg Inj IV SCH ×4 (05:31→23:05)
[2019-12-09] MEDS: cefOXitin 2gm in D5W 110ml IVPB SCH ×3 (05:31→21:16)
--- NOTE | 2019-12-09 06:00 | NUR ---
NURSE NOTES: Lower ABD pad saturated. Changed all ABD pads. No bleeding noted. Abdominal binder applied.
[2019-12-09 07:06] LABS: BASOPHILS % (AUTO) 4.7 % (0.0-2.0); EOSINOPHILS % (AUTO) 5.4 % (0.0-3.0); HEMATOCRIT 32.7 % (42.0-52.0); HEMOGLOBIN 10.9 G/DL (14.2-18.0); LYMPHOCYTES % (AUTO) 22.3 % (20.0-45.0); MEAN CORPUSCULAR VOLUME 88 FL (80-99); MONOCYTES % (AUTO) 13.8 % (1.0-10.0); NEUTROPHILS % (AUTO) 53.8 % (45.0-75.0); PLATELET COUNT 229 K/UL (150-450); RED BLOOD COUNT 3.71 M/UL (4.70-6.10); RED CELL DISTRIBUTION WIDTH 14.3 % (11.6-14.8); WHITE BLOOD COUNT 4.1 K/UL (4.8-10.8)
[2019-12-09 07:21] LABS: ALANINE AMINOTRANSFERASE 21 U/L (12-78); ALBUMIN 2.5 G/DL (3.4-5.0); ALBUMIN/GLOBULIN RATIO 0.7 (1.0-2.7); ALKALINE PHOSPHATASE 57 U/L (46-116); ANION GAP 10 mmol/L (5-15); ASPARTATE AMINO TRANSFERASE 32 U/L (15-37); BILIRUBIN,TOTAL 0.6 MG/DL (0.2-1.0); BLOOD UREA NITROGEN 17 mg/dL (7-18); CALCIUM 7.8 MG/DL (8.5-10.1); CARBON DIOXIDE 24 MMOL/L (21-32); CHLORIDE 110 MMOL/L (98-107); CREATININE 1.5 MG/DL (0.55-1.30); POTASSIUM 4.4 MMOL/L (3.5-5.1); SODIUM 144 MMOL/L (136-145)
--- NOTE | 2019-12-09 07:30 | NUR ---
HAND-OFF: Report given to TRAVIS Huitron. Pt in stable condition.
[2019-12-09 08:00] VITALS: BP 153/83
--- NOTE | 2019-12-09 08:00 | NUR ---
NURSE NOTES: Received report from Klarissa ROBLES, pt a/a/o x4 seating in chair with no signs of distress or other issues at this time. surgical dressing dry and intact. pt has abdominal binder. Michael cath draining to gravity, over night output: 100ml and Suprapubic catheter draining well, overnight output: 250ml. (per report MD is aware) PELON x1 overnight put put: 190ml. IV on the left hand gauge#22 running D51/2+20mEq@125ml. call light within reach, bed in lowest position. side rales up x2. I will f/u as needed.
[2019-12-09] MEDS: Pantoprazole Inj IVP SCH (09:00)
[2019-12-09] MEDS: D5 1/2NS w/KCl 20mEq 1,000 ML IV SCH ×3 (09:00→23:05)
--- NOTE | 2019-12-09 11:06 | NUR ---
RD ASSESSMENT & RECOMMENDATIONS SEE CARE ACTIVITY FOR COMPLETE ASSESSMENT DAILY ESTIMATED NEEDS: Needs based on Surgery 69kg adj 25-30 kcals/kg 7425-9546 total kcals 1-2 g protein/kg 69-138 g total protein 25-30 mL/kg 4405-7668 total fluid mLs NUTRITION DIAGNOSIS: Altered GI fxn r/t surgery as evidenced by s/p radical cystectomy and prostatectomy neobladder, NPO, pending bm. CURRENT DIET: NPO PO DIET RECOMMENDATIONS: LOW NA diet. Monitor BG need for carb control diet ADDITIONAL RECOMMENDATIONS: 1) Obtain a standing weight as able 2) Add ensure Clear to CLD 3) Rec A1C for eval (BG 138-163) 4) diet texture as tolerated
[2019-12-09 12:00] VITALS: BP 167/85
--- NOTE | 2019-12-09 12:43 | NUR ---
CASE MANAGEMENT: REVIEW 12/09/19 SI:S/P RADICAL OPEN CYSTECTOMY, HEMICOLECTOMY AND PROSTATECTOMY NEOBLADDER ILEO CONDUIT URINARY DIVERSION, AND APPENDECTOMY BLADDER CANCER . MRSA + 98.6 80 20 153/83 95% ON RA WBC 4.1 CL-110 CREAT 1.5 BG 138 CA+ 7.8 IS: IV CEFOXITIN Q6HR IV D5@125ML/HR IV PROTONIX QD IV TORADOL Q6HR IV ZOFRAN Q6HR/PRN TYLENOL Q6HR/PRN \: 3E MED SURG UNIT DCP: HOME WHEN STABLE PLAN: START ON CLEAR LIQ DIET Addendum: 12/10/19 at 1556 by JOVANA MONTIEL LVN X-RAY ABD- There is moderate distention of multiple loops of small bowel however there is bowel gas throughout the colon. The bowel gas pattern is indeterminate between severe ileus and partial small bowel obstruction. Progress films are recommended. 12/08/19
--- NOTE | 2019-12-09 13:04 | Surgery Progress Note ---
Surgery Progress Note Subjective Additional Comments Patient seen examined bedside. No acute events. Resting comfortably. He was up and ambulatory today and has had multiple bowel movements since this morning. Personally witnessed 1 of them where he had significant loose stool. No nausea vomiting fever chills. Labs stable. States he feels better. States he is hungry. Catheter is in place. Drain with serosanguineous output Objective Last 24 Hour Vital Signs Date Time Temp Pulse Resp B/P (MAP) Pulse Ox O2 Delivery O2 Flow Rate FiO2 12/09/19 12:00 97.6 81 20 167/85 (112) 94 12/09/19 09:00 Room Air 12/09/19 08:08 96 Room Air 21 12/09/19 08:00 98.6 80 20 153/83 (106) 95 12/09/19 04:00 98.1 95 21 171/88 (115) 95 12/08/19 23:25 99.1 94 17 149/76 (100) 98 12/08/19 22:00 Room Air 12/08/19 20:00 99.7 98 18 153/82 (105) 99 12/08/19 18:00 Room Air 12/08/19 15:00 98.0 84 20 163/90 (114) 98 I&O Intake and Output 12/08/19 12/09/19 19:00 07:00 Intake Total 1245 ml 1435 ml Output Total 905 ml 540 ml Balance 340 ml 895 ml Intake IV Total 1125 ml 1375 ml Other 120 ml 60 ml Output Urine Total 625 ml 350 ml Drainage Total 280 ml 190 ml # Bowel Movements 1 Dressing: dry Wound: clean Drains: lewis Cardiovascular: RSR Respiratory: clear Abdomen: soft, distended, non-tender, present bowel sounds Extremities: no edema, no tenderness, no cyanosis Laboratory Tests Test 12/09/19 05:20 White Blood Count 4.1 K/UL (4.8-10.8) L Red Blood Count 3.71 M/UL (4.70-6.10) L Hemoglobin 10.9 G/DL (14.2-18.0) L Hematocrit 32.7 % (42.0-52.0) L Mean Corpuscular Volume 88 FL (80-99) Mean Corpuscular Hemoglobin 29.5 PG (27.0-31.0) Mean Corpuscular Hemoglobin Concent 33.4 G/DL (32.0-36.0) Red Cell Distribution Width 14.3 % (11.6-14.8) Platelet Count 229 K/UL (150-450) Mean Platelet Volume 5.8 FL (6.5-10.1) L Neutrophils (%) (Auto) 53.8 % (45.0-75.0) Lymphocytes (%) (Auto) 22.3 % (20.0-45.0) Monocytes (%) (Auto) 13.8 % (1.0-10.0) H Eosinophils (%) (Auto) 5.4 % (0.0-3.0) H Basophils (%) (Auto) 4.7 % (0.0-2.0) H Sodium Level 144 MMOL/L (136-145) Potassium Level 4.4 MMOL/L (3.5-5.1) Chloride Level 110 MMOL/L (98-107) H Carbon Dioxide Level 24 MMOL/L (21-32) Anion Gap 10 mmol/L (5-15) Blood Urea Nitrogen 17 mg/dL (7-18) Creatinine 1.5 MG/DL (0.55-1.30) H Estimat Glomerular Filtration Rate 46.1 mL/min (>60) Glucose Level 138 MG/DL (74-106) H Calcium Level 7.8 MG/DL (8.5-10.1) L Total Bilirubin 0.6 MG/DL (0.2-1.0) Aspartate Amino Transf (AST/SGOT) 32 U/L (15-37) Alanine Aminotransferase (ALT/SGPT) 21 U/L (12-78) Alkaline Phosphatase 57 U/L (46-116) Total Protein 6.3 G/DL (6.4-8.2) L Albumin 2.5 G/DL (3.4-5.0) L Globulin 3.8 g/dL Albumin/Globulin Ratio 0.7 (1.0-2.7) L Plan Problems: (1) S/P radical cystoprostatectomy Assessment & Plan: abd pain not ambulatory drains evaluated flush guzman and suprapubic with 30cc NS TID ambulate and out of bed monitor labs will change pain rx to help control incentive spirometry Continue n.p.o. until return of bowel function. Given bowel surgery. A.m. labs. No signs of active bleeding. Catheter flushing clearing up. distended nausea possible ileus post op that would be anticipated labs noted kub reviewed likely ileus dressings changed drain monitored awaiting return of bowel function cont rx We will continue to follow with recommendations bowel function returning had BM start clear liquids Keenan Arteaga December 09, 2019 13:04
[2019-12-09] MEDS ORDERED: NS Irrig 1000ml ONE (14:08)
--- NOTE | 2019-12-09 15:47 | Pulmonology Progress Note ---
Subjective Interval Events: None new; still no bowel sounds; imaging studies reviewed Constitutional: Reports: no symptoms HEENT: Repors: no symptoms Respiratory: Reports: no symptoms Cardiovascular: Reports: no symptoms Gastrointestinal/Abdominal: Reports: no symptoms Genitourinary: Reports: no symptoms Neurologic: Reports: no symptoms Allergies: Coded Allergies: No Known Allergies (Unverified , 12/04/19) Objective Last 24 Hour Vital Signs Date Time Temp Pulse Resp B/P (MAP) Pulse Ox O2 Delivery O2 Flow Rate FiO2 12/09/19 12:00 97.6 81 20 167/85 (112) 94 12/09/19 09:00 Room Air 12/09/19 08:08 96 Room Air 21 12/09/19 08:00 98.6 80 20 153/83 (106) 95 12/09/19 04:00 98.1 95 21 171/88 (115) 95 12/08/19 23:25 99.1 94 17 149/76 (100) 98 12/08/19 22:00 Room Air 12/08/19 20:00 99.7 98 18 153/82 (105) 99 12/08/19 18:00 Room Air Intake and Output 12/08/19 12/09/19 19:00 07:00 Intake Total 1245 ml 1435 ml Output Total 905 ml 540 ml Balance 340 ml 895 ml Intake IV Total 1125 ml 1375 ml Other 120 ml 60 ml Output Urine Total 625 ml 350 ml Drainage Total 280 ml 190 ml # Bowel Movements 1 General Appearance: no acute distress HEENT: normocephalic Respiratory/Chest: chest wall non-tender, lungs clear Cardiovascular: normal peripheral pulses, normal rate Abdomen: absent bowel sounds, distended Extremities: no cyanosis Laboratory Tests 12/09/19 05:20: White Blood Count 4.1L, Red Blood Count 3.71L, Hemoglobin 10.9L, Hematocrit 32.7L, Mean Corpuscular Volume 88, Mean Corpuscular Hemoglobin 29.5, Mean Corpuscular Hemoglobin Concent 33.4, Red Cell Distribution Width 14.3, Platelet Count 229, Mean Platelet Volume 5.8L, Neutrophils (%) (Auto) 53.8, Lymphocytes ( %) (Auto) 22.3, Monocytes (%) (Auto) 13.8H, Eosinophils (%) (Auto) 5.4H, Basophils (%) (Auto) 4.7H, Sodium Level 144, Potassium Level 4.4, Chloride Level 110H, Carbon Dioxide Level 24, Anion Gap 10, Blood Urea Nitrogen 17, Creatinine 1.5H, Estimat Glomerular Filtration Rate 46.1, Glucose Level 138H, Calcium Level 7.8L, Total Bilirubin 0.6, Aspartate Amino Transf (AST/SGOT) 32, Alanine Aminotransferase (ALT/SGPT) 21, Alkaline Phosphatase 57, Total Protein 6.3L, Albumin 2.5L, Globulin 3.8, Albumin/Globulin Ratio 0.7L Current Medications Medications (Trade) Dose Ordered Sig/Octavia Route PRN Reason Start Time Stop Time Status Last Admin Dose Admin Acetaminophen (Tylenol) 650 mg Q6H PRN ORAL Mild Pain (Pain Scale 1-3) 12/04/19 12:15 01/03/20 12:14 12/04/19 23:58 Amlodipine Besylate (Norvasc) 5 mg DAILY ORAL 12/10/19 09:00 01/09/20 08:59 Carvedilol (Coreg) 12.5 mg EVERY 12 HOURS ORAL 12/09/19 21:00 01/08/20 20:59 Cefoxitin Sodium 2 gm/Dextrose 110 ml @ 220 mls/hr Q6HR IVPB 12/05/19 12:00 12/12/19 11:59 12/09/19 13:44 Dextrose/ Electrolytes 1,000 ml @ 125 mls/hr Q8H IV 12/04/19 16:00 01/03/20 15:59 12/09/19 09:00 Diphenhydramine HCl (Benadryl) 25 mg Q6H PRN IVP Itching 12/06/19 14:15 01/05/20 14:14 12/06/19 22:54 Hydromorphone HCl (Dilaudid) 2 mg Q3H PRN IVP pain score 7-10 12/04/19 12:15 12/11/19 12:14 12/08/19 22:14 Ketorolac Tromethamine (Toradol 30mg) 30 mg Q6HR IV 12/06/19 12:00 12/11/19 11:59 12/09/19 13:42 Ondansetron HCl (Zofran) 4 mg Q6H PRN IVP Nausea & Vomiting 12/06/19 14:15 01/05/20 14:14 12/07/19 11:10 Pantoprazole (Protonix) 40 mg DAILY IVP 12/07/19 09:00 01/06/20 08:59 12/09/19 09:00 Assessment/Plan Assessment/Plan IMPRESSION: 1. Postop day #5 status post cystectomy, prostatectomy and neobladder formation. 2. Hypertension. 3. Post-operative ileus DISCUSSION: Continue postoperative care. IV fluids. IV abx Advance diet once cleared by Surgery. Currently, the patient is NPO. On prn Zofran I will follow carefully Labs reviewed. Promise Hsieh Omar Syed MD December 09, 2019 15:47
[2019-12-09 16:00] VITALS: BP 160/84
--- NOTE | 2019-12-09 19:31 | NUR ---
NURSE NOTES: Received Report from Tomy ROBLES. Rounding is done. Patient is a/o x4. Denied any pain or any distress at this time. IV site is intact and IV is running. Suprapubic cath and guzman is intact and is draining to gravity well. PELON drain is intact w/ serosanguinous output. Abdominal dressing changed in the morning and i/c/d. Bed is on alarm, locked, and lowest position. Call light within reach. Will continue to monitor.
--- NOTE | 2019-12-09 19:57 | NUR ---
HAND-OFF: Report given to Donna ROBLES. pt in stable condition. - pt able to tolerate some fluids with no s/s of n/v. I&O's Michael cath: 0ml Supra pubic catheter: 550ml PELON drain: 180ml.
[2019-12-09 20:00] VITALS: BP 160/87
[2019-12-09] MEDS: Carvedilol 12.5mg tab ORAL SCH (21:13)
[2019-12-10] VITALS: BP 152/83
[2019-12-10 04:00] VITALS: BP 146/70
[2019-12-10] MEDS: Ketorolac 30mg Inj IV SCH ×4 (05:23→23:18)
[2019-12-10] MEDS: D5 1/2NS w/KCl 20mEq 1,000 ML IV SCH ×2 (05:24→12:43)
[2019-12-10] MEDS: cefOXitin 2gm in D5W 110ml IVPB SCH ×3 (05:24→21:18)
[2019-12-10 05:42] LABS: BASOPHILS % (AUTO) 1.9 % (0.0-2.0); EOSINOPHILS % (AUTO) 2.4 % (0.0-3.0); HEMATOCRIT 32.4 % (42.0-52.0); LYMPHOCYTES % (AUTO) 10.3 % (20.0-45.0); MEAN CORPUSCULAR VOLUME 88 FL (80-99); MONOCYTES % (AUTO) 16.9 % (1.0-10.0); NEUTROPHILS % (AUTO) 68.4 % (45.0-75.0); PLATELET COUNT 253 K/UL (150-450); RED CELL DISTRIBUTION WIDTH 14.3 % (11.6-14.8)
[2019-12-10 05:57] LABS: ALANINE AMINOTRANSFERASE 31 U/L (12-78); ALBUMIN 2.6 G/DL (3.4-5.0); ALBUMIN/GLOBULIN RATIO 0.7 (1.0-2.7); ALKALINE PHOSPHATASE 68 U/L (46-116); ANION GAP 10 mmol/L (5-15); ASPARTATE AMINO TRANSFERASE 49 U/L (15-37); BILIRUBIN,TOTAL 0.6 MG/DL (0.2-1.0); BLOOD UREA NITROGEN 19 mg/dL (7-18); CALCIUM 8.4 MG/DL (8.5-10.1); CARBON DIOXIDE 21 MMOL/L (21-32); CHLORIDE 111 MMOL/L (98-107); CREATININE 1.6 MG/DL (0.55-1.30); POTASSIUM 4.7 MMOL/L (3.5-5.1); SODIUM 142 MMOL/L (136-145)
--- NOTE | 2019-12-10 07:36 | NUR ---
HAND-OFF: Report given to Tomy ROBLES. Patient in stable condition.
[2019-12-10 08:00] VITALS: BP 143/64
--- NOTE | 2019-12-10 08:00 | NUR ---
NURSE NOTES: Received report from Donna ROBLES, pt a/a/o x4 laying in bed with no signs of distress or other issues at this time. surgical dressing dry and intact. Michael cath in place draining, over night 50ml. supra pubic catheter in place overnight out put: 300ml. PELON drain: 170ml. IV on the left AC gauge #24 running D5 1/2 NS+20mEq@125ml/hr. pt is able to ambulate around the room with steady gait, staff assistance and the use of FWW. call light within reach, bed in lowest position, side rales up x2. I will f/u as needed.
[2019-12-10] MEDS: Pantoprazole Inj IVP SCH (09:31)
[2019-12-10] MEDS: Carvedilol 12.5mg tab ORAL SCH ×2 (09:31→20:23)
--- NOTE | 2019-12-10 11:26 | NUR ---
NURSE NOTES: Spoke to regarding penile edema and elevated on towel. Order noted and carried out.
[2019-12-10 11:51] VITALS: BP 119/63
--- NOTE | 2019-12-10 11:57 | Surgery Progress Note ---
Surgery Progress Note Subjective Additional Comments no acute events ambulatory tolerating clears no n/v/f/c dressings c/d/i drains okay / stable Objective Last 24 Hour Vital Signs Date Time Temp Pulse Resp B/P (MAP) Pulse Ox O2 Delivery O2 Flow Rate FiO2 12/10/19 11:51 98.0 66 20 119/63 (81) 98 12/10/19 09:31 76 146/70 12/10/19 09:31 76 146/70 12/10/19 09:00 Room Air 12/10/19 08:00 98.0 74 20 143/64 (90) 97 12/10/19 04:00 98.1 76 19 146/70 (95) 94 12/10/19 00:00 97.5 84 19 152/83 (106) 97 12/09/19 21:13 81 160/87 12/09/19 21:00 Room Air 12/09/19 20:00 98.3 81 18 160/87 (111) 95 12/09/19 18:06 98.1 12/09/19 16:00 98.1 86 20 160/84 (109) 96 12/09/19 12:00 97.6 81 20 167/85 (112) 94 I&O Intake and Output 12/09/19 12/10/19 19:00 07:00 Intake Total 1375 ml Output Total 470 ml Balance 905 ml Intake IV Total 1345 ml Other 30 ml Output Urine Total 300 ml Drainage Total 170 ml # Voids 1 # Bowel Movements 4 Dressing: dry Wound: clean Drains: lewis Cardiovascular: RSR Respiratory: clear Abdomen: soft, distended - mild, non-tender, present bowel sounds Extremities: no edema, no tenderness, no cyanosis Laboratory Tests Test 12/10/19 04:45 White Blood Count 7.0 K/UL (4.8-10.8) # Red Blood Count 3.70 M/UL (4.70-6.10) L Hemoglobin 11.0 G/DL (14.2-18.0) L Hematocrit 32.4 % (42.0-52.0) L Mean Corpuscular Volume 88 FL (80-99) Mean Corpuscular Hemoglobin 29.6 PG (27.0-31.0) Mean Corpuscular Hemoglobin Concent 33.8 G/DL (32.0-36.0) Red Cell Distribution Width 14.3 % (11.6-14.8) Platelet Count 253 K/UL (150-450) Mean Platelet Volume 6.0 FL (6.5-10.1) L Neutrophils (%) (Auto) 68.4 % (45.0-75.0) Lymphocytes (%) (Auto) 10.3 % (20.0-45.0) L Monocytes (%) (Auto) 16.9 % (1.0-10.0) H Eosinophils (%) (Auto) 2.4 % (0.0-3.0) Basophils (%) (Auto) 1.9 % (0.0-2.0) Sodium Level 142 MMOL/L (136-145) Potassium Level 4.7 MMOL/L (3.5-5.1) Chloride Level 111 MMOL/L (98-107) H Carbon Dioxide Level 21 MMOL/L (21-32) Anion Gap 10 mmol/L (5-15) Blood Urea Nitrogen 19 mg/dL (7-18) H Creatinine 1.6 MG/DL (0.55-1.30) H Estimat Glomerular Filtration Rate 42.8 mL/min (>60) Glucose Level 118 MG/DL (74-106) H Calcium Level 8.4 MG/DL (8.5-10.1) L Total Bilirubin 0.6 MG/DL (0.2-1.0) Aspartate Amino Transf (AST/SGOT) 49 U/L (15-37) H Alanine Aminotransferase (ALT/SGPT) 31 U/L (12-78) Alkaline Phosphatase 68 U/L (46-116) Total Protein 6.3 G/DL (6.4-8.2) L Albumin 2.6 G/DL (3.4-5.0) L Globulin 3.7 g/dL Albumin/Globulin Ratio 0.7 (1.0-2.7) L Plan Problems: (1) S/P radical cystoprostatectomy Assessment & Plan: abd pain not ambulatory drains evaluated flush guzman and suprapubic with 30cc NS TID ambulate and out of bed monitor labs will change pain rx to help control incentive spirometry Continue n.p.o. until return of bowel function. Given bowel surgery. A.m. labs. No signs of active bleeding. Catheter flushing clearing up. distended nausea possible ileus post op that would be anticipated labs noted kub reviewed likely ileus dressings changed drain monitored awaiting return of bowel function cont rx We will continue to follow with recommendations bowel function returning had BM full liquids Keenan Arteaga December 10, 2019 11:57
--- NOTE | 2019-12-10 12:11 | Pulmonology Progress Note ---
Subjective Interval Events: None new; having BM now; imaging studies reviewed Constitutional: Reports: no symptoms HEENT: Repors: no symptoms Respiratory: Reports: no symptoms Cardiovascular: Reports: no symptoms Gastrointestinal/Abdominal: Reports: no symptoms Genitourinary: Reports: no symptoms Neurologic: Reports: no symptoms Allergies: Coded Allergies: No Known Allergies (Unverified , 12/04/19) Objective Last 24 Hour Vital Signs Date Time Temp Pulse Resp B/P (MAP) Pulse Ox O2 Delivery O2 Flow Rate FiO2 12/10/19 11:51 98.0 66 20 119/63 (81) 98 12/10/19 09:31 76 146/70 12/10/19 09:31 76 146/70 12/10/19 09:00 Room Air 12/10/19 08:00 98.0 74 20 143/64 (90) 97 12/10/19 04:00 98.1 76 19 146/70 (95) 94 12/10/19 00:00 97.5 84 19 152/83 (106) 97 12/09/19 21:13 81 160/87 12/09/19 21:00 Room Air 12/09/19 20:00 98.3 81 18 160/87 (111) 95 12/09/19 18:06 98.1 12/09/19 16:00 98.1 86 20 160/84 (109) 96 Intake and Output 12/09/19 12/10/19 19:00 07:00 Intake Total 1375 ml Output Total 470 ml Balance 905 ml Intake IV Total 1345 ml Other 30 ml Output Urine Total 300 ml Drainage Total 170 ml # Voids 1 # Bowel Movements 4 General Appearance: no acute distress HEENT: normocephalic Respiratory/Chest: chest wall non-tender, lungs clear Cardiovascular: normal peripheral pulses, normal rate Abdomen: absent bowel sounds, distended Extremities: no cyanosis Laboratory Tests 12/10/19 04:45: White Blood Count 7.0#, Red Blood Count 3.70L, Hemoglobin 11.0L, Hematocrit 32.4L, Mean Corpuscular Volume 88, Mean Corpuscular Hemoglobin 29.6, Mean Corpuscular Hemoglobin Concent 33.8, Red Cell Distribution Width 14.3, Platelet Count 253, Mean Platelet Volume 6.0L, Neutrophils (%) (Auto) 68.4, Lymphocytes ( %) (Auto) 10.3L, Monocytes (%) (Auto) 16.9H, Eosinophils (%) (Auto) 2.4, Basophils (%) (Auto) 1.9, Sodium Level 142, Potassium Level 4.7, Chloride Level 111H, Carbon Dioxide Level 21, Anion Gap 10, Blood Urea Nitrogen 19H, Creatinine 1.6H, Estimat Glomerular Filtration Rate 42.8, Glucose Level 118H, Calcium Level 8.4L, Total Bilirubin 0.6, Aspartate Amino Transf (AST/SGOT) 49H, Alanine Aminotransferase (ALT/SGPT) 31, Alkaline Phosphatase 68, Total Protein 6.3L, Albumin 2.6L, Globulin 3.7, Albumin/Globulin Ratio 0.7L Current Medications Medications (Trade) Dose Ordered Sig/Octavia Route PRN Reason Start Time Stop Time Status Last Admin Dose Admin Acetaminophen (Tylenol) 650 mg Q6H PRN ORAL Mild Pain (Pain Scale 1-3) 12/04/19 12:15 01/03/20 12:14 12/04/19 23:58 Amlodipine Besylate (Norvasc) 5 mg DAILY ORAL 12/10/19 09:00 01/09/20 08:59 12/10/19 09:31 Carvedilol (Coreg) 12.5 mg EVERY 12 HOURS ORAL 12/09/19 21:00 01/08/20 20:59 12/10/19 09:31 Cefoxitin Sodium 2 gm/Dextrose 110 ml @ 220 mls/hr Q8HR IVPB 12/09/19 22:00 12/12/19 21:59 12/10/19 05:24 Dextrose/ Electrolytes 1,000 ml @ 75 mls/hr [id number] IV 12/10/19 16:00 01/09/20 15:59 UNV Diphenhydramine HCl (Benadryl) 25 mg Q6H PRN IVP Itching 12/06/19 14:15 01/05/20 14:14 12/06/19 22:54 Hydromorphone HCl (Dilaudid) 2 mg Q3H PRN IVP pain score 7-10 12/04/19 12:15 12/11/19 12:14 12/08/19 22:14 Ketorolac Tromethamine (Toradol 30mg) 30 mg Q6HR IV 12/06/19 12:00 12/11/19 11:59 12/10/19 05:23 Ondansetron HCl (Zofran) 4 mg Q6H PRN IVP Nausea & Vomiting 12/06/19 14:15 01/05/20 14:14 12/07/19 11:10 Pantoprazole (Protonix) 40 mg DAILY IVP 12/07/19 09:00 01/06/20 08:59 12/10/19 09:31 Assessment/Plan Assessment/Plan IMPRESSION: 1. Postop day #6 status post cystectomy, prostatectomy and neobladder formation. 2. Hypertension. 3. Post-operative ileus, improving 4. Mild penile edema; advised scrotum and penis elevation DISCUSSION: Continue postoperative care. IV fluids. IV abx Advance diet once cleared by Surgery. Currently on clear liquids On prn Zofran I will follow carefully Labs reviewed. Promise Hsieh Omar Syed MD December 10, 2019 12:11
--- NOTE | 2019-12-10 15:44 | Operative Note - Dictated ---
DATE OF OPERATION: 12/04/2019 PREOPERATIVE DIAGNOSIS: Bladder cancer. POSTOPERATIVE DIAGNOSIS: Bladder cancer. OPERATION: Radical cystectomy, prostatectomy, lymph node dissection, and creation of neobladder. COLLECTIONS AGENT: Darci Lindsay MD ANESTHESIA: General by Dr. David Eaton FINDINGS: Bladder tumor. 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 Treatment options were explained to him in great length including all potential complications. He signed a consent. DESCRIPTION OF OPERATION: He was brought to the operating room, placed in supine position. Prepped and draped in standard fashion. Under general anesthesia, a midline laparotomy incision was made. was mobilized and excised towards the anterior bladder wall. Bladder was then mobilized through the retroperitoneum using Endo-LUCIA stapler. The lateral pedicles were divided. was established and the bladder was from the rectum and removed together with the prostate in one specimen. Both ureters were severed from the bladder. Distal ureteral margins were sent for frozen section showed negative for tumor. After bladder and prostate were removed, bilateral lymph node dissection was done followed by 20 cm of terminal ileum with 20 cm of cecum was mobilized and transected by Dr. Eaton. We then re-created the continuity of the bowel and created a neobladder. After he created a neobladder, I implanted both of the ureters 02:04 portion of ileum using Hebert technique over a 7-Pakistani 28 cm stent that was left indwelling in the neobladder. The neobladder was device and closed creating the bladder neck. The bladder was irrigated. No evidence of bleeding. The anastomosis between the neobladder and urethral stump was 2-0 Vicryl sutures over 22-Pakistani Michael catheter. Suprapubic catheter was placed and left indwelling in the neobladder. PELON drain 19 was placed and left in the as well. The wound was closed with looped PDS. Estimated blood loss approximately 800 mL. Sponge count and instrument count were correct. Lynne for the skin. Darci Lindsay M.D. DR: JONNATHAN JOB#: [id number] CC:
[2019-12-10 16:00] VITALS: BP 147/72
--- NOTE | 2019-12-10 19:10 | NUR ---
HAND-OFF: Report given to Donna ROBLES, pt in stable condition. - during my shift pt was able to eat only 25% of his meal. RN encouraged him to eat. - pt was able to ambulate around the room and around the unit with the use of a FWW. I&O's Michael cath:150-60= 90ml supra pubic: [id number] PELON: 120ml
[2019-12-10 20:00] VITALS: BP 139/81
--- NOTE | 2019-12-10 20:22 | NUR ---
NURSE NOTES: Patient c/o Nausea and vomited with Yellow greenish emesis. Given zofran 4mg IVP as ordered. Will continue to monitor.
[2019-12-11] VITALS: BP 109/63
[2019-12-11] MEDS: D5 1/2NS w/KCl 20mEq 1,000 ML IV SCH (01:36)
--- NOTE | 2019-12-11 02:25 | NUR ---
NURSE NOTES: Notified to DR. Riddle regarding patient's condition; patient has SOB, wheezing without Crackle, O2 sat 93 %, anxiety. Dr. Riddle stated no order for patient at this time and I will see patient in the morning. Will Continue to monitor.
[2019-12-11 04:00] VITALS: BP 117/70
[2019-12-11] MEDS: Ketorolac 30mg Inj IV SCH (05:49)
[2019-12-11] MEDS: cefOXitin 2gm in D5W 110ml IVPB SCH (05:50)
--- NOTE | 2019-12-11 07:35 | NUR ---
HAND-OFF: Report given to Tomy ROBLES. PATIENT IN STABLE CONDITION.
[2019-12-11 07:38] VITALS: BP 89/57
--- NOTE | 2019-12-11 08:00 | NUR ---
NURSE NOTES: Received report from Donna ROBLES, pt a/a/o x4 laying in bed with no signs of distress or other issues at this time. surgical dressing dry and intact. Michael cath in place draining, over night 100ml. supra pubic catheter in place overnight out put: 200ml. PELON drain: 70ml. IV on the left AC and right DIANE gauge #22 running D5 1/2 NS+20mEq@125ml/hr. per report overnight pt complained of shortness of breath but no chest pain. and low BP. however bead wire taper nurse given Dilaudid SQ x2. per report Dr. Riddle is aware. call light within reach, bed in lowest position, side rales up x2. I will f/u as needed. - During VS pt's BP 89/57 right hand and 87/55 left hand. RN notify Dr. Riddle and Dr. Arteaga. no orders obtained at this time. I will f/u as needed.
[2019-12-11] MEDS: Pantoprazole Inj IVP SCH (08:46)
[2019-12-11] MEDS: Carvedilol 12.5mg tab ORAL SCH ×2 (09:00→20:32)
--- NOTE | 2019-12-11 10:09 | NUR ---
CASE MANAGEMENT: REVIEW 12/11/19 SI:S/P RADICAL OPEN CYSTECTOMY, HEMICOLECTOMY AND PROSTATECTOMY NEOBLADDER ILEO CONDUIT URINARY DIVERSION, AND APPENDECTOMY BLADDER CANCER . MRSA + 97.7 78 16 89/57 95% ON RA WBC 4.1 CL-110 CREAT 1.5 BG 138 CA+ 7.8 IS: IV CEFOXITIN Q6HR IV D5@125ML/HR IV PROTONIX QD IV TORADOL Q6HR IV ZOFRAN Q6HR/PRN TYLENOL Q6HR/PRN \: 3E MED SURG UNIT DCP: HOME WHEN STABLE PLAN: MONITOR BP-LOW MONITOR PENILE EDEMA ADVANCE TO REGULAR DIET TOLERATED Addendum: 12/11/19 at 1025 by JOVANA MONTIEL LVN ADJUST FREQUENCY TO IV ABX
[2019-12-11 10:22] LABS: HEMATOCRIT 30.1 % (42.0-52.0); MEAN CORPUSCULAR VOLUME 90 FL (80-99); PLATELET COUNT 250 K/UL (150-450); RED BLOOD COUNT 3.35 M/UL (4.70-6.10); RED CELL DISTRIBUTION WIDTH 14.3 % (11.6-14.8)
[2019-12-11 10:24] LABS: WHITE BLOOD COUNT 22.8 K/UL (4.8-10.8)
--- NOTE | 2019-12-11 10:43 | Pulmonology Progress Note ---
Subjective Interval Events: None new; having regular BM now; imaging studies reviewed Constitutional: Reports: no symptoms HEENT: Repors: no symptoms Respiratory: Reports: no symptoms Cardiovascular: Reports: no symptoms Gastrointestinal/Abdominal: Reports: no symptoms Genitourinary: Reports: no symptoms Neurologic: Reports: no symptoms Allergies: Coded Allergies: No Known Allergies (Unverified , 12/04/19) Objective Last 24 Hour Vital Signs Date Time Temp Pulse Resp B/P (MAP) Pulse Ox O2 Delivery O2 Flow Rate FiO2 12/11/19 09:00 78 89/57 12/11/19 09:00 78 89/57 12/11/19 07:38 97.7 78 16 89/57 (68) 95 12/11/19 04:00 97.9 98 20 117/70 (86) 93 12/11/19 00:00 98.1 91 19 109/63 (78) 94 12/10/19 21:00 Room Air 12/10/19 20:23 69 139/81 12/10/19 20:00 97.2 69 18 139/81 (100) 95 12/10/19 18:30 97.0 12/10/19 16:00 97.0 67 20 147/72 (97) 97 12/10/19 11:51 98.0 66 20 119/63 (81) 98 Intake and Output 12/10/19 12/11/19 19:00 07:00 Intake Total 60 ml 625 ml Output Total 600 ml 370 ml Balance -540 ml 255 ml Intake IV Total 595 ml Other 60 ml 30 ml Output Urine Total 90 ml 100 ml Drainage Total 120 ml 70 ml Other 390 ml 200 ml General Appearance: no acute distress HEENT: normocephalic Respiratory/Chest: chest wall non-tender, lungs clear Cardiovascular: normal peripheral pulses, normal rate Abdomen: absent bowel sounds, distended Extremities: no cyanosis Laboratory Tests 12/11/19 09:45: White Blood Count 22.8#*H, Red Blood Count 3.35L, Hemoglobin 10.0L, Hematocrit 30.1L, Mean Corpuscular Volume 90, Mean Corpuscular Hemoglobin 29.7, Mean Corpuscular Hemoglobin Concent 33.1, Red Cell Distribution Width 14.3, Platelet Count 250, Mean Platelet Volume 6.0L, Neutrophils (%) (Auto) , Lymphocytes (%) ( Auto) , Monocytes (%) (Auto) , Eosinophils (%) (Auto) , Basophils (%) (Auto) , Neutrophils % (Manual) [Pending], Lymphocytes % (Manual) [Pending], Platelet Estimate [Pending], Platelet Morphology [Pending], Sodium Level [Pending], Potassium Level [Pending], Chloride Level [Pending], Carbon Dioxide Level [ Pending], Blood Urea Nitrogen [Pending], Creatinine [Pending], Estimat Glomerular Filtration Rate [Pending], Glucose Level [Pending], Calcium Level [ Pending], Total Bilirubin [Pending], Aspartate Amino Transf (AST/SGOT) [Pending] , Alanine Aminotransferase (ALT/SGPT) [Pending], Alkaline Phosphatase [Pending] , Total Protein [Pending], Albumin [Pending], Globulin [Pending] Current Medications Medications (Trade) Dose Ordered Sig/Octavia Route PRN Reason Start Time Stop Time Status Last Admin Dose Admin Acetaminophen (Tylenol) 650 mg Q6H PRN ORAL Mild Pain (Pain Scale 1-3) 12/04/19 12:15 01/03/20 12:14 12/04/19 23:58 Acetaminophen/ Hydrocodone Bitart ([place] 5/325) 1 tab Q4H PRN ORAL Moderate Pain (Pain Scale 4-6) 12/11/19 09:30 12/18/19 09:29 Amlodipine Besylate (Norvasc) 5 mg DAILY ORAL 12/10/19 09:00 01/09/20 08:59 12/10/19 09:31 Carvedilol (Coreg) 12.5 mg EVERY 12 HOURS ORAL 12/09/19 21:00 01/08/20 20:59 12/10/19 20:23 Cefoxitin Sodium 2 gm/Dextrose 110 ml @ 220 mls/hr Q8HR IVPB 12/11/19 14:00 12/18/19 21:59 Diphenhydramine HCl (Benadryl) 25 mg Q6H PRN IVP Itching 12/06/19 14:15 01/05/20 14:14 12/06/19 22:54 Docusate Sodium (Colace) 100 mg TWICE A DAY ORAL 12/11/19 18:00 01/10/20 17:59 Hydromorphone HCl (Dilaudid) 2 mg Q3H PRN IVP pain score 7-10 12/04/19 12:15 12/11/19 12:14 12/11/19 03:12 Ketorolac Tromethamine (Toradol 30mg) 30 mg Q6HR IV 12/06/19 12:00 12/11/19 11:59 12/11/19 05:49 Ondansetron HCl (Zofran) 4 mg Q6H PRN IVP Nausea & Vomiting 12/06/19 14:15 01/05/20 14:14 12/11/19 05:49 Pantoprazole (Protonix) 40 mg DAILY IVP 12/07/19 09:00 01/06/20 08:59 12/11/19 08:46 Assessment/Plan Assessment/Plan IMPRESSION: 1. Postop day #7 status post cystectomy, prostatectomy and neobladder formation. 2. Hypertension. 3. Post-operative ileus, improving 4. Mild penile edema; advised scrotum and penis elevation DISCUSSION: Continue postoperative care. IV fluids discontinued IV abx Advance diet once cleared by Surgery. Currently on clear liquids On prn Zofran I will follow carefully Labs reviewed. Promise Hsieh Omar Syed MD December 11, 2019 10:43
[2019-12-11 10:45] LABS: ALANINE AMINOTRANSFERASE 38 U/L (12-78); ALBUMIN 2.4 G/DL (3.4-5.0); ALBUMIN/GLOBULIN RATIO 0.7 (1.0-2.7); ALKALINE PHOSPHATASE 97 U/L (46-116); ANION GAP 12 mmol/L (5-15); ASPARTATE AMINO TRANSFERASE 79 U/L (15-37); BILIRUBIN,TOTAL 0.8 MG/DL (0.2-1.0); BLOOD UREA NITROGEN 32 mg/dL (7-18); CALCIUM 8.1 MG/DL (8.5-10.1); CARBON DIOXIDE 20 MMOL/L (21-32); CHLORIDE 110 MMOL/L (98-107); CREATININE 3.2 MG/DL (0.55-1.30); POTASSIUM 5.5 MMOL/L (3.5-5.1); SODIUM 142 MMOL/L (136-145)
--- NOTE | 2019-12-11 10:47 | NUR ---
RADIOLOGY: BLANCA COMPLETED 1020HRS. NF
--- NOTE | 2019-12-11 11:00 | NUR ---
NURSE NOTES: called DR. Riddle to notify that WBC when up from 7 to 22.8. Received order for UA and cultures from Supra pubic and Michael cath. blood cultures and CXR. RN will carry on orders and fallow up as needed. - RN also notified Dr. Arteaga.
--- NOTE | 2019-12-11 11:38 | Surgery Progress Note ---
Surgery Progress Note Subjective Additional Comments clinically well this AM when seen but now labs resulted and noted wbc 22k afebrile HD stable cr elevated >3 making urine no n/v/f/c tolerating diet drain output less Objective Last 24 Hour Vital Signs Date Time Temp Pulse Resp B/P (MAP) Pulse Ox O2 Delivery O2 Flow Rate FiO2 12/11/19 09:00 78 89/57 12/11/19 09:00 78 89/57 12/11/19 07:38 97.7 78 16 89/57 (68) 95 12/11/19 04:00 97.9 98 20 117/70 (86) 93 12/11/19 00:00 98.1 91 19 109/63 (78) 94 12/10/19 21:00 Room Air 12/10/19 20:23 69 139/81 12/10/19 20:00 97.2 69 18 139/81 (100) 95 12/10/19 18:30 97.0 12/10/19 16:00 97.0 67 20 147/72 (97) 97 12/10/19 11:51 98.0 66 20 119/63 (81) 98 I&O Intake and Output 12/10/19 12/11/19 19:00 07:00 Intake Total 60 ml 625 ml Output Total 600 ml 370 ml Balance -540 ml 255 ml Intake IV Total 595 ml Other 60 ml 30 ml Output Urine Total 90 ml 100 ml Drainage Total 120 ml 70 ml Other 390 ml 200 ml Dressing: dry Wound: clean Drains: lewis Cardiovascular: RSR Respiratory: clear Abdomen: soft, distended, non-tender, present bowel sounds Extremities: no edema, no tenderness, no cyanosis Laboratory Tests Test 12/11/19 09:45 White Blood Count 22.8 K/UL (4.8-10.8) #*H Red Blood Count 3.35 M/UL (4.70-6.10) L Hemoglobin 10.0 G/DL (14.2-18.0) L Hematocrit 30.1 % (42.0-52.0) L Mean Corpuscular Volume 90 FL (80-99) Mean Corpuscular Hemoglobin 29.7 PG (27.0-31.0) Mean Corpuscular Hemoglobin Concent 33.1 G/DL (32.0-36.0) Red Cell Distribution Width 14.3 % (11.6-14.8) Platelet Count 250 K/UL (150-450) Mean Platelet Volume 6.0 FL (6.5-10.1) L Neutrophils (%) (Auto) % (45.0-75.0) Lymphocytes (%) (Auto) % (20.0-45.0) Monocytes (%) (Auto) % (1.0-10.0) Eosinophils (%) (Auto) % (0.0-3.0) Basophils (%) (Auto) % (0.0-2.0) Neutrophils % (Manual) Pending Lymphocytes % (Manual) Pending Platelet Estimate Pending Platelet Morphology Pending Sodium Level 142 MMOL/L (136-145) Potassium Level 5.5 MMOL/L (3.5-5.1) H Chloride Level 110 MMOL/L (98-107) H Carbon Dioxide Level 20 MMOL/L (21-32) L Anion Gap 12 mmol/L (5-15) Blood Urea Nitrogen 32 mg/dL (7-18) H Creatinine 3.2 MG/DL (0.55-1.30) #H Estimat Glomerular Filtration Rate 19.2 mL/min (>60) Glucose Level 159 MG/DL (74-106) H Calcium Level 8.1 MG/DL (8.5-10.1) L Total Bilirubin 0.8 MG/DL (0.2-1.0) Aspartate Amino Transf (AST/SGOT) 79 U/L (15-37) H Alanine Aminotransferase (ALT/SGPT) 38 U/L (12-78) Alkaline Phosphatase 97 U/L (46-116) Total Protein 5.9 G/DL (6.4-8.2) L Albumin 2.4 G/DL (3.4-5.0) L Globulin 3.5 g/dL Albumin/Globulin Ratio 0.7 (1.0-2.7) L Plan Problems: (1) S/P radical cystoprostatectomy Assessment & Plan: abd pain not ambulatory drains evaluated flush guzman and suprapubic with 30cc NS TID ambulate and out of bed monitor labs will change pain rx to help control incentive spirometry Continue n.p.o. until return of bowel function. Given bowel surgery. A.m. labs. No signs of active bleeding. Catheter flushing clearing up. distended nausea possible ileus post op that would be anticipated labs noted kub reviewed likely ileus dressings changed drain monitored awaiting return of bowel function cont rx We will continue to follow with recommendations bowel function returning had BM full liquids Additional Comments cont ABx given wbc repeat AM labs Renal ultrasound cont flushing tubes and drains okay for diet NS at 75cc/hr d/c toradol norco colace ambulate and out of bed Keenan Arteaga December 11, 2019 11:38
[2019-12-11 12:00] VITALS: BP 87/55
--- NOTE | 2019-12-11 12:27 | NUR ---
RADIOLOGY: PCXR COMPLETED 1225 HRS. NF
--- NOTE | 2019-12-11 12:49 | NUR ---
CASE MANAGEMENT: REVIEW 12/11/19 SI:S/P RADICAL OPEN CYSTECTOMY, HEMICOLECTOMY AND PROSTATECTOMY NEOBLADDER ILEO CONDUIT URINARY DIVERSION, AND APPENDECTOMY BLADDER CANCER . MRSA + 97.7 78 16 89/57 95% ON RA WBC 22.8 H/H 10/30.1 K+5.5 CL-110 CO2 - 20 BUN 32 CREAT 3.2 BG 159 CA+ 8.1 AST 79 IS: IV CEFOXITIN Q6HR IV D5@125ML/HR IV PROTONIX QD IV TORADOL Q6HR IV ZOFRAN Q6HR/PRN TYLENOL Q6HR/PRN IVF NS BOLUS X1 \: 3E MED SURG UNIT DCP: HOME WHEN STABLE PLAN: MONITOR BP-LOW MONITOR PENILE EDEMA ADVANCE TO REGULAR DIET TOLERATED ADJUST FREQUENCY TO IV ABX
[2019-12-11 14:40] LABS: APPEARANCE,URINE VERY CLOUDY; BILIRUBIN, URINE NEGATIVE (NEGATIVE); GLUCOSE, URINE (UA) NEGATIVE (NEGATIVE); NITRITE,URINE NEGATIVE (NEGATIVE); UROBILINOGEN,URINE NORMAL MG/DL (0.0-1.0)
[2019-12-11 14:41] LABS: COLOR,URINE RED
[2019-12-11 14:42] LABS: KETONES,URINE 1+ (NEGATIVE); PH,URINE 6.5 (4.5-8.0); PROTEIN,URINE 3+ (NEGATIVE)
[2019-12-11 14:43] LABS: LEUKOCYTE ESTERASE ,URINE 3+ (NEGATIVE)
[2019-12-11] MEDS: cefOXitin Sod 2 GM in D5W 110 ML IVPB SCH ×2 (15:00→21:59)
[2019-12-11] MEDS: Docusate 100mg cap ORAL SCH (19:00)
--- NOTE | 2019-12-11 19:45 | NUR ---
NURSE NOTES: Received report & pt from TRAVIS Huitron. Pt up in chair, a&ox4, in room air. No s/s of acute distress & c/o 10/07 pain. Michael & suprapubic cath intact & draining to gravity. PELON x 1 to bulb suction. Drsg intact. IV sites intact with IVF running as ordered. Bed in lowest position, call light within reach. Will continue to monitor.
[2019-12-11 20:00] VITALS: BP 97/59
--- NOTE | 2019-12-11 20:23 | NUR ---
HAND-OFF: Report given to Klarissa RN, pt in stable condition. During my shift: - UA and cultures from supra pubic and guzman cath were done - blood cultures - ABD/Renal US - ABD Xray - CXR
--- NOTE | 2019-12-11 22:14 | NUR ---
NURSE NOTES: Dr. Lindsay called & RN updated him of pt. Aware of guzman, suprapubic, & PELON drain outputs; afebrile. Updated MD that pt walked earlier, last BP reading 97/59 & results of imaging done earlier are not available yet. Received new order for NS bolus 500 ml x1 now.
[2019-12-12] VITALS: BP 112/62
[2019-12-12 04:30] VITALS: BP 135/69
[2019-12-12] MEDS: HYDROcodone/Acetamin 5/325 tab ORAL PRN ×3 (04:44→21:01)
[2019-12-12] MEDS: cefOXitin Sod 2 GM in D5W 110 ML IVPB SCH (05:55)
[2019-12-12 06:46] LABS: HEMATOCRIT 30.3 % (42.0-52.0); HEMOGLOBIN 10.3 G/DL (14.2-18.0); MEAN CORPUSCULAR VOLUME 88 FL (80-99); PLATELET COUNT 297 K/UL (150-450); RED BLOOD COUNT 3.44 M/UL (4.70-6.10); RED CELL DISTRIBUTION WIDTH 14.6 % (11.6-14.8); WHITE BLOOD COUNT 20.2 K/UL (4.8-10.8)
[2019-12-12 06:54] LABS: ALANINE AMINOTRANSFERASE 36 U/L (12-78); ALBUMIN 2.5 G/DL (3.4-5.0); ALBUMIN/GLOBULIN RATIO 0.7 (1.0-2.7); ALKALINE PHOSPHATASE 110 U/L (46-116); ANION GAP 15 mmol/L (5-15); ASPARTATE AMINO TRANSFERASE 64 U/L (15-37); BILIRUBIN,TOTAL 0.5 MG/DL (0.2-1.0); BLOOD UREA NITROGEN 47 mg/dL (7-18); CALCIUM 8.5 MG/DL (8.5-10.1); CARBON DIOXIDE 17 MMOL/L (21-32); CHLORIDE 111 MMOL/L (98-107); POTASSIUM 4.3 MMOL/L (3.5-5.1); SODIUM 143 MMOL/L (136-145)
--- NOTE | 2019-12-12 07:20 | NUR ---
NURSE NOTES:bedside rounds with night rn(alejandro),pt. claims no more dizziness,abdomen less distended as compared 2days ago,passing gas,iv sites x2 patent,s/c,guzman,julien, draining to serosanguineous output.encouraged to do i/s q hour w/a.will continue current plan of care
--- NOTE | 2019-12-12 07:28 | NUR ---
HAND-OFF: Report given to TRAVIS Garcia. Pt in stable condition.
--- NOTE | 2019-12-12 07:35 | NUR ---
NURSE NOTES:dr. menjivar called in,updated re:pts status,output,cbc/bmp results.order carried out.
[2019-12-12 07:49] VITALS: BP 132/88
[2019-12-12] MEDS: Carvedilol 12.5mg tab ORAL SCH ×2 (07:59→20:59)
[2019-12-12] MEDS: Docusate 100mg cap ORAL SCH ×2 (07:59→18:00)
[2019-12-12] MEDS: Pantoprazole Inj IVP SCH (08:00)
--- NOTE | 2019-12-12 08:00 | NUR ---
NURSE NOTES:tolerated 50% of clear liquid diet,had liquid bm.
--- NOTE | 2019-12-12 10:37 | Pulmonology Progress Note ---
Subjective Interval Events: None new; having regular BM now; imaging studies reviewed Constitutional: Reports: no symptoms HEENT: Repors: no symptoms Respiratory: Reports: no symptoms Cardiovascular: Reports: no symptoms Gastrointestinal/Abdominal: Reports: no symptoms Genitourinary: Reports: no symptoms Neurologic: Reports: no symptoms Allergies: Coded Allergies: No Known Allergies (Unverified , 12/04/19) Objective Last 24 Hour Vital Signs Date Time Temp Pulse Resp B/P (MAP) Pulse Ox O2 Delivery O2 Flow Rate FiO2 12/12/19 07:59 83 132/88 12/12/19 07:59 83 132/88 12/12/19 07:49 97.8 83 20 132/88 (103) 93 12/12/19 07:20 Room Air 12/12/19 04:30 98.1 73 20 135/69 (91) 93 12/12/19 00:00 98.4 79 16 112/62 (79) 94 12/11/19 20:34 Room Air 12/11/19 20:32 82 97/59 12/11/19 20:00 98.0 82 18 97/59 (72) 95 12/11/19 12:00 98.0 91 18 87/55 (66) 93 Intake and Output 12/11/19 12/12/19 19:00 07:00 Intake Total 75 ml 1050 ml Output Total 220 ml 565 ml Balance -145 ml 485 ml Intake Oral 240 ml IV Total 75 ml 750 ml Other 60 ml Output Urine Total 100 ml 75 ml Drainage Total 20 ml 40 ml Other 100 ml 450 ml General Appearance: no acute distress HEENT: normocephalic Respiratory/Chest: chest wall non-tender, lungs clear Cardiovascular: normal peripheral pulses, normal rate Abdomen: absent bowel sounds, distended Extremities: no cyanosis Microbiology Date/Time Source Procedure Growth Status 12/11/19 11:30 Urine,Suprapubic Urine Culture - Preliminary NO GROWTH Resulted Laboratory Tests 12/11/19 11:30: Urine Color Red, Urine Appearance Very cloudy, Urine pH 6.5, Urine Specific [place] 1.015, Urine Protein 3+H, Urine Glucose (UA) Negative, Urine Ketones 1+H , Urine Blood 5+H, Urine Nitrite Negative, Urine Bilirubin Negative, Urine Urobilinogen Normal, Urine Leukocyte Esterase 3+H, Urine RBC TntcH, Urine WBC TntcH, Urine Squamous Epithelial Cells Occasional, Urine Bacteria Occasional 12/12/19 05:15: White Blood Count 20.2H, Red Blood Count 3.44L, Hemoglobin 10.3L, Hematocrit 30.3L, Mean Corpuscular Volume 88, Mean Corpuscular Hemoglobin 29.8, Mean Corpuscular Hemoglobin Concent 33.9, Red Cell Distribution Width 14.6, Platelet Count 297, Mean Platelet Volume 5.9L, Neutrophils (%) (Auto) , Lymphocytes (%) ( Auto) , Monocytes (%) (Auto) , Eosinophils (%) (Auto) , Basophils (%) (Auto) , Differential Total Cells Counted 100, Neutrophils % (Manual) 79H, Lymphocytes % (Manual) 8L, Monocytes % (Manual) 9, Eosinophils % (Manual) 0, Basophils % ( Manual) 0, Band Neutrophils 4, Platelet Estimate Adequate, Platelet Morphology Normal, Hypochromasia 1+, Anisocytosis 1+, Sodium Level 143, Potassium Level 4.3 , Chloride Level 111H, Carbon Dioxide Level 17L, Anion Gap 15, Blood Urea Nitrogen 47H, Creatinine 3.0H, Estimat Glomerular Filtration Rate 20.7, Glucose Level 102, Calcium Level 8.5, Total Bilirubin 0.5, Aspartate Amino Transf (AST/ SGOT) 64H, Alanine Aminotransferase (ALT/SGPT) 36, Alkaline Phosphatase 110, Total Protein 6.3L, Albumin 2.5L, Globulin 3.8, Albumin/Globulin Ratio 0.7L Current Medications Medications (Trade) Dose Ordered Sig/Octavia Route PRN Reason Start Time Stop Time Status Last Admin Dose Admin Acetaminophen (Tylenol) 650 mg Q6H PRN ORAL Mild Pain (Pain Scale 1-3) 12/04/19 12:15 01/03/20 12:14 12/04/19 23:58 Acetaminophen/ Hydrocodone Bitart ([place] 5/325) 1 tab Q4H PRN ORAL Moderate Pain (Pain Scale 4-6) 12/11/19 09:30 12/18/19 09:29 12/12/19 09:30 Amlodipine Besylate (Norvasc) 5 mg DAILY ORAL 12/10/19 09:00 01/09/20 08:59 12/12/19 07:59 Carvedilol (Coreg) 12.5 mg EVERY 12 HOURS ORAL 12/09/19 21:00 01/08/20 20:59 12/12/19 07:59 Cefoxitin Sodium 2 gm/Dextrose 110 ml @ 220 mls/hr Q12H IVPB 12/12/19 18:00 12/19/19 17:59 Diphenhydramine HCl (Benadryl) 25 mg Q6H PRN IVP Itching 12/06/19 14:15 01/05/20 14:14 12/06/19 22:54 Docusate Sodium (Colace) 100 mg TWICE A DAY ORAL 12/11/19 18:00 01/10/20 17:59 12/12/19 07:59 Ondansetron HCl (Zofran) 4 mg Q6H PRN IVP Nausea & Vomiting 12/06/19 14:15 01/05/20 14:14 12/12/19 03:28 Pantoprazole (Protonix) 40 mg DAILY IVP 12/07/19 09:00 01/06/20 08:59 12/12/19 08:00 Sodium Chloride 1,000 ml @ 75 mls/hr [id number] IV 12/11/19 11:45 01/10/20 11:44 12/12/19 01:02 Assessment/Plan Assessment/Plan IMPRESSION: 1. Postop day #8 status post cystectomy, prostatectomy and neobladder formation. 2. Hypertension. 3. Post-operative ileus, improving 4. Mild penile edema; advised scrotum and penis elevation DISCUSSION: Continue postoperative care. IV fluids discontinued IV abx Advance diet once cleared by Surgery. Currently on clear liquids On prn Zofran I will follow carefully Labs reviewed. Respiratory status stable Has leucocytosis Will consult ID Promise Hsieh Omar Syed MD December 12, 2019 10:37
[2019-12-12 12:00] VITALS: BP 130/71
--- NOTE | 2019-12-12 12:00 | NUR ---
NURSE NOTES:ambulated with physical therapy,tolerated 1 round,no co sob/dizziness.
--- NOTE | 2019-12-12 14:00 | NUR ---
NURSE NOTES:ambulated n hallway using walker with supervision assist,tolerated well.
[2019-12-12 16:00] VITALS: BP 117/75
--- NOTE | 2019-12-12 16:00 | NUR ---
NURSE NOTES:ambulating in hallway with standby assist,no episode of dizziness.
--- NOTE | 2019-12-12 17:24 | NUR ---
NURSE NOTES:has poor appetite with hospital foods,family brought in some full liquid diet and pt. tolerated.compliant in using i/s,and ambulating with abdominal binder.
[2019-12-12] MEDS ORDERED: cefOXitin Sod 2 GM in D5W 110 ML IVPB SCH (18:00)
--- NOTE | 2019-12-12 19:32 | Surgery Progress Note ---
Surgery Progress Note Subjective Symptoms: pain same Objective Last 24 Hour Vital Signs Date Time Temp Pulse Resp B/P (MAP) Pulse Ox O2 Delivery O2 Flow Rate FiO2 12/12/19 16:00 97.0 69 16 117/75 (89) 94 12/12/19 12:00 97.8 71 16 130/71 (90) 95 12/12/19 07:59 83 132/88 12/12/19 07:59 83 132/88 12/12/19 07:49 97.8 83 20 132/88 (103) 93 12/12/19 07:20 Room Air 12/12/19 04:30 98.1 73 20 135/69 (91) 93 12/12/19 00:00 98.4 79 16 112/62 (79) 94 12/11/19 20:34 Room Air 12/11/19 20:32 82 97/59 12/11/19 20:00 98.0 82 18 97/59 (72) 95 I&O Intake and Output 12/11/19 12/12/19 19:00 07:00 Intake Total 75 ml 1050 ml Output Total 220 ml 565 ml Balance -145 ml 485 ml Intake Oral 240 ml IV Total 75 ml 750 ml Other 60 ml Output Urine Total 100 ml 75 ml Drainage Total 20 ml 40 ml Other 100 ml 450 ml Dressing: dry Wound: clean Cardiovascular: RSR Respiratory: clear Abdomen: soft, distended, non-tender Extremities: no cyanosis Laboratory Tests Test 12/12/19 05:15 12/12/19 14:00 White Blood Count 20.2 K/UL (4.8-10.8) H Red Blood Count 3.44 M/UL (4.70-6.10) L Hemoglobin 10.3 G/DL (14.2-18.0) L Hematocrit 30.3 % (42.0-52.0) L Mean Corpuscular Volume 88 FL (80-99) Mean Corpuscular Hemoglobin 29.8 PG (27.0-31.0) Mean Corpuscular Hemoglobin Concent 33.9 G/DL (32.0-36.0) Red Cell Distribution Width 14.6 % (11.6-14.8) Platelet Count 297 K/UL (150-450) Mean Platelet Volume 5.9 FL (6.5-10.1) L Neutrophils (%) (Auto) % (45.0-75.0) Lymphocytes (%) (Auto) % (20.0-45.0) Monocytes (%) (Auto) % (1.0-10.0) Eosinophils (%) (Auto) % (0.0-3.0) Basophils (%) (Auto) % (0.0-2.0) Differential Total Cells Counted 100 Neutrophils % (Manual) 79 % (45-75) H Lymphocytes % (Manual) 8 % (20-45) L Monocytes % (Manual) 9 % (1-10) Eosinophils % (Manual) 0 % (0-3) Basophils % (Manual) 0 % (0-2) Band Neutrophils 4 % (0-8) Platelet Estimate Adequate Platelet Morphology Normal Hypochromasia 1+ Anisocytosis 1+ Sodium Level 143 MMOL/L (136-145) Potassium Level 4.3 MMOL/L (3.5-5.1) Chloride Level 111 MMOL/L (98-107) H Carbon Dioxide Level 17 MMOL/L (21-32) L Anion Gap 15 mmol/L (5-15) Blood Urea Nitrogen 47 mg/dL (7-18) H Creatinine 3.0 MG/DL (0.55-1.30) H Estimat Glomerular Filtration Rate 20.7 mL/min (>60) Glucose Level 102 MG/DL (74-106) Calcium Level 8.5 MG/DL (8.5-10.1) Total Bilirubin 0.5 MG/DL (0.2-1.0) Aspartate Amino Transf (AST/SGOT) 64 U/L (15-37) H Alanine Aminotransferase (ALT/SGPT) 36 U/L (12-78) Alkaline Phosphatase 110 U/L (46-116) Total Protein 6.3 G/DL (6.4-8.2) L Albumin 2.5 G/DL (3.4-5.0) L Globulin 3.8 g/dL Albumin/Globulin Ratio 0.7 (1.0-2.7) L Urine Eosinophils None seen (NONE SEEN) Urine Random Sodium 119 mmol/L (20-110) H Plan Problems: (1) S/P radical cystoprostatectomy Assessment & Plan: abd pain not ambulatory drains evaluated flush guzman and suprapubic with 30cc NS TID ambulate and out of bed monitor labs will change pain rx to help control incentive spirometry Continue n.p.o. until return of bowel function. Given bowel surgery. A.m. labs. No signs of active bleeding. Catheter flushing clearing up. distended nausea possible ileus post op that would be anticipated labs noted kub reviewed likely ileus dressings changed drain monitored awaiting return of bowel function cont rx We will continue to follow with recommendations bowel function returning had BM full liquids Keenan Arteaga December 12, 2019 19:32
--- NOTE | 2019-12-12 19:47 | Infectious Diseases Prog Note ---
Assessment/Plan Assessment/Plan Full consult dictated: A) 1) possible sepsis, leukocytosis, arf, ? sbo vs ileus but patient had bm 2) s/p prostatectomy 3) mrsa colonization 4) pmh noted, bladder ca 5) allergies - nkda P) 1) empiric zosyn 2) f/u cultures and imaging 3) monitor labs 4) surgery f/u 5) thank you Subjective Allergies: Coded Allergies: No Known Allergies (Unverified , 12/04/19) Objective Vital Signs Last 24 Hour Vital Signs Date Time Temp Pulse Resp B/P (MAP) Pulse Ox O2 Delivery O2 Flow Rate FiO2 12/12/19 16:00 97.0 69 16 117/75 (89) 94 12/12/19 12:00 97.8 71 16 130/71 (90) 95 12/12/19 07:59 83 132/88 12/12/19 07:59 83 132/88 12/12/19 07:49 97.8 83 20 132/88 (103) 93 12/12/19 07:20 Room Air 12/12/19 04:30 98.1 73 20 135/69 (91) 93 12/12/19 00:00 98.4 79 16 112/62 (79) 94 12/11/19 20:34 Room Air 12/11/19 20:32 82 97/59 12/11/19 20:00 98.0 82 18 97/59 (72) 95 Height (Feet): 5 Height (Inches): 6.00 Weight (Pounds): 183 Microbiology Date/Time Source Procedure Growth Status 12/11/19 11:30 Urine,Suprapubic Urine Culture - Preliminary NO GROWTH Resulted Laboratory Tests Test 12/12/19 05:15 12/12/19 14:00 White Blood Count 20.2 K/UL (4.8-10.8) H Red Blood Count 3.44 M/UL (4.70-6.10) L Hemoglobin 10.3 G/DL (14.2-18.0) L Hematocrit 30.3 % (42.0-52.0) L Mean Corpuscular Volume 88 FL (80-99) Mean Corpuscular Hemoglobin 29.8 PG (27.0-31.0) Mean Corpuscular Hemoglobin Concent 33.9 G/DL (32.0-36.0) Red Cell Distribution Width 14.6 % (11.6-14.8) Platelet Count 297 K/UL (150-450) Mean Platelet Volume 5.9 FL (6.5-10.1) L Neutrophils (%) (Auto) % (45.0-75.0) Lymphocytes (%) (Auto) % (20.0-45.0) Monocytes (%) (Auto) % (1.0-10.0) Eosinophils (%) (Auto) % (0.0-3.0) Basophils (%) (Auto) % (0.0-2.0) Differential Total Cells Counted 100 Neutrophils % (Manual) 79 % (45-75) H Lymphocytes % (Manual) 8 % (20-45) L Monocytes % (Manual) 9 % (1-10) Eosinophils % (Manual) 0 % (0-3) Basophils % (Manual) 0 % (0-2) Band Neutrophils 4 % (0-8) Platelet Estimate Adequate Platelet Morphology Normal Hypochromasia 1+ Anisocytosis 1+ Sodium Level 143 MMOL/L (136-145) Potassium Level 4.3 MMOL/L (3.5-5.1) Chloride Level 111 MMOL/L (98-107) H Carbon Dioxide Level 17 MMOL/L (21-32) L Anion Gap 15 mmol/L (5-15) Blood Urea Nitrogen 47 mg/dL (7-18) H Creatinine 3.0 MG/DL (0.55-1.30) H Estimat Glomerular Filtration Rate 20.7 mL/min (>60) Glucose Level 102 MG/DL (74-106) Calcium Level 8.5 MG/DL (8.5-10.1) Total Bilirubin 0.5 MG/DL (0.2-1.0) Aspartate Amino Transf (AST/SGOT) 64 U/L (15-37) H Alanine Aminotransferase (ALT/SGPT) 36 U/L (12-78) Alkaline Phosphatase 110 U/L (46-116) Total Protein 6.3 G/DL (6.4-8.2) L Albumin 2.5 G/DL (3.4-5.0) L Globulin 3.8 g/dL Albumin/Globulin Ratio 0.7 (1.0-2.7) L Urine Eosinophils None seen (NONE SEEN) Urine Random Sodium 119 mmol/L (20-110) H Current Medications Medications (Trade) Dose Ordered Sig/Octavia Route PRN Reason Start Time Stop Time Status Last Admin Dose Admin Acetaminophen (Tylenol) 650 mg Q6H PRN ORAL Mild Pain (Pain Scale 1-3) 12/04/19 12:15 01/03/20 12:14 12/04/19 23:58 Acetaminophen/ Hydrocodone Bitart ([place] 5/325) 1 tab Q4H PRN ORAL Moderate Pain (Pain Scale 4-6) 12/11/19 09:30 12/18/19 09:29 12/12/19 09:30 Amlodipine Besylate (Norvasc) 5 mg DAILY ORAL 12/10/19 09:00 01/09/20 08:59 12/12/19 07:59 Carvedilol (Coreg) 12.5 mg EVERY 12 HOURS ORAL 12/09/19 21:00 01/08/20 20:59 12/12/19 07:59 Cefoxitin Sodium 2 gm/Dextrose 110 ml @ 220 mls/hr Q12H IVPB 12/12/19 18:00 12/19/19 17:59 12/12/19 18:23 Diphenhydramine HCl (Benadryl) 25 mg Q6H PRN IVP Itching 12/06/19 14:15 01/05/20 14:14 12/06/19 22:54 Docusate Sodium (Colace) 100 mg TWICE A DAY ORAL 12/11/19 18:00 01/10/20 17:59 12/12/19 07:59 Ondansetron HCl (Zofran) 4 mg Q6H PRN IVP Nausea & Vomiting 12/06/19 14:15 01/05/20 14:14 12/12/19 03:28 Pantoprazole (Protonix) 40 mg DAILY IVP 12/07/19 09:00 01/06/20 08:59 12/12/19 08:00 Sodium Chloride 1,000 ml @ 75 mls/hr [id number] IV 12/11/19 11:45 01/10/20 11:44 12/12/19 14:34 Cecy Schreiber MD December 12, 2019 19:47
--- NOTE | 2019-12-12 19:54 | NUR ---
HAND-OFF: Report given to amy allen.bedside rounds done,pt.stable
--- NOTE | 2019-12-12 19:55 | NUR ---
NURSE NOTES: Received report from TRAVIS Garcia. Patient doing well. Would like pain medication at around 9 pm. Abdominal dressing dry and intact. Suprapubic cath and guzman cath patent. Patient alert, oriented. IVF running inRH. Assisted to bathroom, steady gait with use of walker, patient had BM. Bed in low position, locked, side rails up x2, call light within reach.
[2019-12-12 20:00] VITALS: BP 135/95
[2019-12-12] MEDS: Piperacillin/Tazobactam 2.25 GM in D5W 55 ML IV SCH (22:47)
[2019-12-13] VITALS: BP 122/79
[2019-12-13 04:00] VITALS: BP 140/69
[2019-12-13] MEDS: Piperacillin/Tazobactam 2.25 GM in D5W 55 ML IV SCH ×3 (05:47→21:24)
--- NOTE | 2019-12-13 05:59 | Consultation ---
DATE OF CONSULTATION: 12/12/2019 INFECTIOUS DISEASE CONSULTATION CONSULTING PHYSICIAN: Cecy Schreiber MD. ATTENDING PHYSICIAN: Darci Lindsay MD. REFERRING PHYSICIAN: Lázrao Riddle MD. REASON FOR CONSULTATION: Possible sepsis, elevated white count. CHIEF COMPLAINT: The patient's chief complaint coming to the hospital was bladder cancer, invasive bladder cancer. HISTORY OF PRESENT ILLNESS: This is a very pleasant 69-year-old male who presented to [facility] with invasive bladder cancer. Patient required surgery and had a radical cystectomy and prostatectomy and neobladder. This was done on 12/04/2019. Patient now was noted to be postoperatively with a significant white count of 22.8. There was concern that patient could have sepsis. Cultures were obtained. UA was consistent with possible UTI. However, he is status post surgery and there is question if he has a bowel obstruction versus ileus. However, he did have a bowel movement. Surgery, Urology, and General Surgery are following. Infectious Disease consultation is requested for antibiotic management. Patient will be empirically started on Zosyn pending cultures. Patient of note is colonized with MRSA and a chest x-ray will also be ordered. MAR was noted. Orders were noted. Notes and records were reviewed. Case discussed with RN. We will continue Zosyn for now. Also case discussed with patient. REVIEW OF SYSTEMS: CONSTITUTIONAL: Patient does have a Michael. He is alert and responsive. He has no fever, chills, or night sweats. HEAD AND NECK: No head pain or neck pain. No neck stiffness. No dysphagia or thrush. No change in vision. CARDIAC: No chest pain. GASTROINTESTINAL: No nausea, vomiting, or abdominal pain. GENITOURINARY: He has a Michael. PULMONARY: No congestion or shortness of breath, hemoptysis, or secretions. SKIN: No rash. EXTREMITIES: No pain. NEUROLOGIC: No seizures. Generalized fatigue. No focal weakness. PAST MEDICAL HISTORY: Patient has history of bladder cancer, invasive, status post again radical cystectomy and prostatectomy with neobladder that operation was on 12/04/2019. Other past medical history, patient has a history of hypertension, hyperlipidemia, osteoarthritis, degenerative joint disease, and low vitamin D. ALLERGIES: No known drug allergies. SOCIAL HISTORY: Negative for smoking, alcohol, or drug abuse. FAMILY HISTORY: Noncontributory. Negative for tuberculosis or cancer. MEDICATIONS: Upon reviewing the MAR, he is on cefoxitin. I am going to change him to Zosyn. He is on docusate. He is on hydrocodone. He is on Norvasc, carvedilol, pantoprazole, Zofran, and diphenhydramine. Outside medications were noted and reconciliated. PHYSICAL EXAMINATION: VITAL SIGNS: Temperature is 97.0, pulse rate 69, respiratory rate 16, blood pressure 117/75, saturation 94% on room air. Heart rate has been as high as 98. GENERAL: Alert, responsive. No acute distress. He is oriented x3. HEAD AND NECK: Oral exam, no thrush. Eye exam, no icterus. Normocephalic. Neck is supple. HEART: Regular. No gallop or murmur. No friction rub. ABDOMEN: Soft. Positive bowel sounds. Nontender. LUNGS: Clear bilaterally. No rhonchi or rales. SKIN: No rash. MUSCULOSKELETAL: No effusion. No septic arthritis. Lower extremities are without cellulitis. PERIPHERAL VASCULAR: No cyanosis or gangrene. GENITOURINARY: He has a Michael. Urine is cloudy. LINES: Lines sites are without phlebitis NEUROLOGIC: Generalized weakness. Responsive. LABORATORY DATA: Creatinine was 1.0 on admission, now it is 3.0 as high as 3.2. White count 20.2, hemoglobin 7.3. White count yesterday was 22.8. UA previously just from yesterday had leukocyte esterase 3+ and too many to count white blood cells. Urine culture so far is negative. Blood cultures are pending. MRSA screen is positive. IMAGING STUDIES: A KUB showed distention of multiple loops of small bowel, indeterminate test ileus versus bowel obstruction. ASSESSMENT AND PLAN: 1. Patient has history of invasive bladder cancer, status post radical cystectomy and prostatectomy with neobladder. Patient has significant leukocytosis with renal failure, rule out occult sepsis. At this time, we will empirically start patient on Zosyn adjusting for elevated creatinine. I discussed with pharmacy. Continue Zosyn empirically for possible sepsis, elevated white count. Differential includes UTI versus bowel obstruction you know patient did have a bowel movement. Urology and General Surgery are following. Continue Zosyn for now. Follow up on cultures, laboratories, chest x-ray, and further imaging as indicated. Patient may need a CT scan of the abdomen and pelvis without contrast if the leukocytosis persists. Continue Zosyn empirically for now pending workup for possible sepsis and elevated white count. 2. Acute renal failure. 3. Anemia. 4. Bladder cancer, invasive bladder cancer. 5. Status post radical cystectomy and prostatectomy with neobladder. 6. Dyslipidemia. 7. Hypertension. 8. MRSA colonization. 9. Osteoarthritis. 10. Vitamin D deficiency. 11. Degenerative joint disease. 12. Hypertension and hyperlipidemia treatment per primary care team. 13. No known drug allergies. 14. Social history negative. 15. Family history noncontributory. 16. MAR is noted. 17. Case discussed with RN. Cecy Schreiber M.D. DR: TEJINDER JOB#: [id number] CC:
[2019-12-13 06:57] LABS: ALANINE AMINOTRANSFERASE 36 U/L (12-78); ALBUMIN 2.4 G/DL (3.4-5.0); ALBUMIN/GLOBULIN RATIO 0.7 (1.0-2.7); ALKALINE PHOSPHATASE 108 U/L (46-116); ANION GAP 15 mmol/L (5-15); ASPARTATE AMINO TRANSFERASE 68 U/L (15-37); BILIRUBIN,TOTAL 0.4 MG/DL (0.2-1.0); BLOOD UREA NITROGEN 42 mg/dL (7-18); CALCIUM 8.3 MG/DL (8.5-10.1); CARBON DIOXIDE 18 MMOL/L (21-32); CHLORIDE 113 MMOL/L (98-107); PHOSPHORUS 3.2 MG/DL (2.5-4.9); POTASSIUM 4.5 MMOL/L (3.5-5.1); SODIUM 146 MMOL/L (136-145)
[2019-12-13 07:09] LABS: BASOPHILS % (AUTO) 0.8 % (0.0-2.0); EOSINOPHILS % (AUTO) 1.8 % (0.0-3.0); HEMATOCRIT 32.1 % (42.0-52.0); LYMPHOCYTES % (AUTO) 10.7 % (20.0-45.0); MEAN CORPUSCULAR VOLUME 94 FL (80-99); NEUTROPHILS % (AUTO) 76.6 % (45.0-75.0); PLATELET COUNT 294 K/UL (150-450); RED CELL DISTRIBUTION WIDTH 16.7 % (11.6-14.8); WHITE BLOOD COUNT 11.3 K/UL (4.8-10.8)
--- NOTE | 2019-12-13 07:30 | NUR ---
HAND-OFF: Report given to TRAVIS Mary. Patient in stable condition.
--- NOTE | 2019-12-13 07:34 | NUR ---
NURSE NOTES: Received report. Patient stable, AOx4 ambulated to restroom but seems to be unstable on his feet. BSC placed for future use. Patient also appears to be in pain (grasping abdomen and bending forward) but stating he is okay. Will offer pain medication again. IV fluids infusing. Suprapubic and Michael catheters appear to be draining well to gravity. PELON drain noted with fluid in chamber. Abdominal dressing is dry and intact. Side rails upx2, call light within reach, bed low and locked. Will continue to monitor.
[2019-12-13 08:00] VITALS: BP 115/67
[2019-12-13] MEDS: Docusate 100mg cap ORAL SCH ×3 (08:26→15:29)
[2019-12-13] MEDS: Carvedilol 12.5mg tab ORAL SCH ×2 (08:26→21:24)
[2019-12-13] MEDS: Pantoprazole Inj IVP SCH ×2 (08:27→21:23)
[2019-12-13] MEDS: HYDROcodone/Acetamin 5/325 tab ORAL PRN (08:28)
--- NOTE | 2019-12-13 10:40 | Consultation ---
Consult Note Consult Note I am asked to evaluate the patient at the request of Dr. Lindsay for renal failure Patient seen in room 321 Zoila present Patient interviewed and examined Date ninth of his hospitalization Patient had normal serum creatinine until December 06 when it started to rise and peaked on December 10-3.2 On examination Patient is flat mood, slightly pale Vital signs stable Creased breath sounds over the bases Heart regular Abdomen slightly distended soft Has suprapubic catheter Is Michael catheter Has penile and scrotal edema . Assessment/Plan Acute kidney injury, likely due to medications, like Toradol Postop cystectomy prostatectomy and neobladder formation, history of invasive bladder cancer Story of hypertension Postoperative ileus Anemia Hypertension Dyslipidemia Vitamin D deficiency Osteoarthritis Suggestions: D5W 100 cc an hour Adjust stool softeners Start p.o. Reglan Check renal parameters tomorrow Adjust blood pressure medication Per orders Discussed with Javan Jacques MD December 13, 2019 10:40
[2019-12-13] MEDS ORDERED: Metoclopramide 10mg/2ml Inj IVP PRN (11:00)
--- NOTE | 2019-12-13 11:20 | NUR ---
CASE MANAGEMENT: REVIEW 12/13/19 SI:S/P RADICAL OPEN CYSTECTOMY, HEMICOLECTOMY AND PROSTATECTOMY NEOBLADDER ILEO CONDUIT URINARY DIVERSION, AND APPENDECTOMY BLADDER CANCER . MRSA + 97.5 74 19 115/67 96% ON RA WBC 11.3 CL-113 CO2 - 18 BUN 42 CREAT 2.0 IS: IV ZOSYN TID IV D5@100ML/HR COREG PO BID NORCO PO Q4HR/PRN TYLENOL Q6HR/PRN \: 3E MED SURG UNIT DCP: HOME WHEN STABLE PLAN: WBC IMPROVE LABS IN AM ADJUST BP MEDICATION DC PLANNING HOME
--- NOTE | 2019-12-13 11:37 | Pulmonology Progress Note ---
Subjective Interval Events: None new; having regular BM now; imaging studies reviewed Constitutional: Reports: no symptoms HEENT: Repors: no symptoms Respiratory: Reports: no symptoms Cardiovascular: Reports: no symptoms Gastrointestinal/Abdominal: Reports: no symptoms Genitourinary: Reports: no symptoms Neurologic: Reports: no symptoms Allergies: Coded Allergies: No Known Allergies (Unverified , 12/04/19) Objective Last 24 Hour Vital Signs Date Time Temp Pulse Resp B/P (MAP) Pulse Ox O2 Delivery O2 Flow Rate FiO2 12/13/19 09:00 Room Air 12/13/19 08:26 74 115/67 12/13/19 08:00 97.5 74 19 115/67 (83) 96 12/13/19 04:00 98.3 68 19 140/69 (92) 96 12/13/19 00:00 98.9 75 20 122/79 (93) 96 12/12/19 21:00 Room Air 12/12/19 20:59 79 135/95 12/12/19 20:00 97.4 79 20 135/95 (108) 98 12/12/19 16:00 97.0 69 16 117/75 (89) 94 12/12/19 12:00 97.8 71 16 130/71 (90) 95 Intake and Output 12/12/19 12/13/19 19:00 07:00 Intake Total 1250 ml 1140 ml Output Total 770 ml 1525 ml Balance 480 ml -385 ml Intake Oral 500 ml 240 ml IV Total 750 ml 900 ml Output Urine Total 120 ml 75 ml Emesis 150 ml Drainage Total 150 ml 250 ml Other 500 ml 1050 ml # Bowel Movements 1 General Appearance: no acute distress HEENT: normocephalic Respiratory/Chest: chest wall non-tender, lungs clear Cardiovascular: normal peripheral pulses, normal rate Abdomen: absent bowel sounds, distended Extremities: no cyanosis Microbiology Date/Time Source Procedure Growth Status 12/11/19 11:40 Blood Blood Culture - Preliminary NO GROWTH AFTER 24 HOURS Resulted 12/11/19 11:30 Urine,Suprapubic Urine Culture - Preliminary Gram Negative Javy Resulted Laboratory Tests 12/12/19 14:00: Urine Eosinophils None seen, Urine Random Sodium 119H 12/13/19 05:10: White Blood Count 11.3H, Red Blood Count 3.40L, Hemoglobin 10.0L, Hematocrit 32.1L, Mean Corpuscular Volume 94, Mean Corpuscular Hemoglobin 29.4, Mean Corpuscular Hemoglobin Concent 31.2L, Red Cell Distribution Width 16.7H, Platelet Count 294, Mean Platelet Volume 7.1, Neutrophils (%) (Auto) 76.6H, Lymphocytes (%) (Auto) 10.7L, Monocytes (%) (Auto) 10.0, Eosinophils (%) (Auto) 1.8, Basophils (%) (Auto) 0.8, Sodium Level 146H, Potassium Level 4.5, Chloride Level 113H, Carbon Dioxide Level 18L, Anion Gap 15, Blood Urea Nitrogen 42H, Creatinine 2.0H, Estimat Glomerular Filtration Rate 33.1, Glucose Level 87, Uric Acid 5.1, Calcium Level 8.3L, Phosphorus Level 3.2, Magnesium Level 2.0, Total Bilirubin 0.4, Aspartate Amino Transf (AST/SGOT) 68H, Alanine Aminotransferase (ALT/SGPT) 36, Alkaline Phosphatase 108, C-Reactive Protein, Quantitative 12.0H, Total Protein 6.0L, Albumin 2.4L, Globulin 3.6, Albumin/ Globulin Ratio 0.7L, Thyroid Stimulating Hormone (TSH) 1.185 12/13/19 05:45: Urine Eosinophils None seen Current Medications Medications (Trade) Dose Ordered Sig/Octavia Route PRN Reason Start Time Stop Time Status Last Admin Dose Admin Acetaminophen (Tylenol) 650 mg Q6H PRN ORAL Mild Pain (Pain Scale 1-3) 12/04/19 12:15 01/03/20 12:14 12/13/19 05:47 Acetaminophen/ Hydrocodone Bitart ([place] 5/325) 1 tab Q4H PRN ORAL Moderate Pain (Pain Scale 4-6) 12/11/19 09:30 12/18/19 09:29 12/13/19 08:28 Amlodipine Besylate (Norvasc) 2.5 mg DAILY ORAL 12/14/19 09:00 01/09/20 08:59 Carvedilol (Coreg) 12.5 mg EVERY 12 HOURS ORAL 12/09/19 21:00 01/08/20 20:59 12/13/19 08:26 Dextrose 1,000 ml @ 100 mls/hr Q10H IV 12/13/19 11:00 01/12/20 10:59 12/13/19 11:01 Diphenhydramine HCl (Benadryl) 25 mg Q6H PRN IVP Itching 12/06/19 14:15 01/05/20 14:14 12/06/19 22:54 Docusate Sodium (Colace) 100 mg TID ORAL 12/13/19 13:00 01/10/20 17:59 Metoclopramide HCl (Reglan) 10 mg BEFORE MEALS ORAL 12/13/19 11:30 01/12/20 11:29 Metoclopramide HCl (Reglan) 10 mg Q6H PRN IVP Nausea & Vomiting 12/13/19 11:00 01/12/20 10:59 12/13/19 11:18 Pantoprazole (Protonix) 40 mg Q12HR IVP 12/13/19 21:00 01/06/20 08:59 Piperacillin Sod/ Tazobactam Sod 2.25 gm/Dextrose 55 ml @ 110 mls/hr Q8HR IV 12/12/19 22:00 12/19/19 21:59 12/13/19 05:47 Assessment/Plan Assessment/Plan IMPRESSION: 1. Postop day #9 status post cystectomy, prostatectomy and neobladder formation. 2. Hypertension. 3. Post-operative ileus, improving 4. Mild penile edema; advised scrotum and penis elevation DISCUSSION: Continue postoperative care. IV fluids discontinued IV abx; now on Zosyn per ID Advance diet once cleared by Surgery. Currently on clear liquids On prn Zofran I will follow carefully Labs reviewed. Respiratory status stable Has leucocytosis; improved Promise Hsieh Omar Syed MD December 13, 2019 11:37
--- NOTE | 2019-12-13 11:50 | NUR ---
NURSE NOTES: One episode of emesis. 200mLs of cloudy green liquid observed with foul odor. Dr. Chandler valdez.
[2019-12-13 12:00] VITALS: BP 163/82
--- NOTE | 2019-12-13 12:40 | NUR ---
RD ASSESSMENT & RECOMMENDATIONS SEE CARE ACTIVITY FOR COMPLETE ASSESSMENT DAILY ESTIMATED NEEDS: Needs based on Surgery 69kg adj 25-30 kcals/kg 1213-9095 total kcals 1-2 g protein/kg 69-138 g total protein 25-30 mL/kg 2343-4857 total fluid mLs NUTRITION DIAGNOSIS: Altered GI fxn r/t surgery as evidenced by s/p radical cystectomy and prostatectomy neobladder, diet advanced to full liquid, w/ episode emesis now. CURRENT DIET:Full Liquid PO DIET RECOMMENDATIONS: LOW NA diet. Monitor BG need for carb control diet ADDITIONAL RECOMMENDATIONS: 1) Obtain a standing weight as able 2) Add Ensure Clear to full liquid diet 3) Rec A1C for eval (BG 138-163) 4) diet texture as tolerated
--- NOTE | 2019-12-13 13:12 | NUR ---
RADIOLOGY DEPT., ABDOMEN X-RAY COMPLETED.-P.DYE
--- NOTE | 2019-12-13 13:15 | NUR ---
NURSE NOTES: Dr. Arteaga inserted NGT. Placed on intermittent suction. 1L immediately out.
--- NOTE | 2019-12-13 13:50 | Surgery Progress Note ---
Surgery Progress Note Subjective Additional Comments wbc improved distended n/v kub ordered and noted ng tue place my myself 1L> out Objective Last 24 Hour Vital Signs Date Time Temp Pulse Resp B/P (MAP) Pulse Ox O2 Delivery O2 Flow Rate FiO2 12/13/19 09:00 Room Air 12/13/19 08:26 74 115/67 12/13/19 08:00 97.5 74 19 115/67 (83) 96 12/13/19 04:00 98.3 68 19 140/69 (92) 96 12/13/19 00:00 98.9 75 20 122/79 (93) 96 12/12/19 21:00 Room Air 12/12/19 20:59 79 135/95 12/12/19 20:00 97.4 79 20 135/95 (108) 98 12/12/19 16:00 97.0 69 16 117/75 (89) 94 I&O Intake and Output 12/12/19 12/13/19 19:00 07:00 Intake Total 1250 ml 1140 ml Output Total 770 ml 1525 ml Balance 480 ml -385 ml Intake Oral 500 ml 240 ml IV Total 750 ml 900 ml Output Urine Total 120 ml 75 ml Emesis 150 ml Drainage Total 150 ml 250 ml Other 500 ml 1050 ml # Bowel Movements 1 Dressing: dry Wound: clean Cardiovascular: RSR Respiratory: clear Abdomen: soft, distended, non-tender, decreased bowel sounds Extremities: no edema, no tenderness, no cyanosis Laboratory Tests Test 12/12/19 14:00 12/13/19 05:10 12/13/19 05:45 Urine Eosinophils None seen (NONE SEEN) None seen (NONE SEEN) Urine Random Sodium 119 mmol/L (20-110) H White Blood Count 11.3 K/UL (4.8-10.8) H Red Blood Count 3.40 M/UL (4.70-6.10) L Hemoglobin 10.0 G/DL (14.2-18.0) L Hematocrit 32.1 % (42.0-52.0) L Mean Corpuscular Volume 94 FL (80-99) Mean Corpuscular Hemoglobin 29.4 PG (27.0-31.0) Mean Corpuscular Hemoglobin Concent 31.2 G/DL (32.0-36.0) L Red Cell Distribution Width 16.7 % (11.6-14.8) H Platelet Count 294 K/UL (150-450) Mean Platelet Volume 7.1 FL (6.5-10.1) Neutrophils (%) (Auto) 76.6 % (45.0-75.0) H Lymphocytes (%) (Auto) 10.7 % (20.0-45.0) L Monocytes (%) (Auto) 10.0 % (1.0-10.0) Eosinophils (%) (Auto) 1.8 % (0.0-3.0) Basophils (%) (Auto) 0.8 % (0.0-2.0) Sodium Level 146 MMOL/L (136-145) H Potassium Level 4.5 MMOL/L (3.5-5.1) Chloride Level 113 MMOL/L (98-107) H Carbon Dioxide Level 18 MMOL/L (21-32) L Anion Gap 15 mmol/L (5-15) Blood Urea Nitrogen 42 mg/dL (7-18) H Creatinine 2.0 MG/DL (0.55-1.30) H Estimat Glomerular Filtration Rate 33.1 mL/min (>60) Glucose Level 87 MG/DL (74-106) Uric Acid 5.1 MG/DL (2.6-7.2) Calcium Level 8.3 MG/DL (8.5-10.1) L Phosphorus Level 3.2 MG/DL (2.5-4.9) Magnesium Level 2.0 MG/DL (1.8-2.4) Total Bilirubin 0.4 MG/DL (0.2-1.0) Aspartate Amino Transf (AST/SGOT) 68 U/L (15-37) H Alanine Aminotransferase (ALT/SGPT) 36 U/L (12-78) Alkaline Phosphatase 108 U/L (46-116) C-Reactive Protein, Quantitative 12.0 mg/dL (0.00-0.90) H Total Protein 6.0 G/DL (6.4-8.2) L Albumin 2.4 G/DL (3.4-5.0) L Globulin 3.6 g/dL Albumin/Globulin Ratio 0.7 (1.0-2.7) L Thyroid Stimulating Hormone (TSH) 1.185 uiU/mL (0.358-3.740) Plan Problems: (1) S/P radical cystoprostatectomy Assessment & Plan: abd pain not ambulatory drains evaluated flush guzman and suprapubic with 30cc NS TID ambulate and out of bed monitor labs will change pain rx to help control incentive spirometry Continue n.p.o. until return of bowel function. Given bowel surgery. A.m. labs. No signs of active bleeding. Catheter flushing clearing up. distended nausea possible ileus post op that would be anticipated labs noted kub reviewed likely ileus dressings changed drain monitored awaiting return of bowel function cont rx We will continue to follow with recommendations bowel function returning had BM full liquids distended n/v kub noted ng tube place npo ileus will await return of bowel function Keenan Arteaga December 13, 2019 13:50
--- NOTE | 2019-12-13 14:47 | NUR ---
P.T Weekly Progress Notes: Pt being seen this past week for skilled P.T. Pt responded well from tx. Pt. although is limited by pain in the abdomen and episodes of dizziness, patient is able to perform in bed mobility and transfer mobility independently using proper mobility technique as instructed independently. Pt can ambulate within the room distances w/o AD and along hallways independently using the FWW: ( only require assist for I.V lines ). Pt is independent with his home ex program as instructed. Pt is currently functioning independently within surgical guidelines where is skilled P.T service is no longer needed. Continued to encourage OOB activities as tolerated to prevent deconditioning effect of hospitalization. DC P.T services.
--- NOTE | 2019-12-13 15:55 | Diagnostic Imaging Report ---
Indication: Abdominal pain, vomiting Technique: XRAY Abdomen 1v Comparison: 12/11/2019 Findings: Persistent dilatation of multiple small bowel loops which may related to persistent ileus or small bowel obstruction. Surgical skin [place] are noted. There are ureteral stents are noted traversing towards the midline. There are degenerative changes in the spine. No acute osseous abnormality. Impression: Persistent dilatation of small bowel loops concerning for small bowel obstruction. Consider further evaluation with CT of the abdomen with oral contrast.
[2019-12-13 16:00] VITALS: BP 123/67
--- NOTE | 2019-12-13 16:30 | Diagnostic Imaging Report ---
Procedure: XRAY Chest 1v Reason for study: Reason For Exam: SOB Comparison films: None. FINDINGS: A single one view chest is obtained. Vascularity is normal. Streaky atelectasis is noted right lung base. Cardiac and mediastinal silhouette are within normal limits. CP angles are sharp. The bony thorax appear unremarkable. IMPRESSION: Streaky basilar atelectasis.
--- NOTE | 2019-12-13 16:30 | Diagnostic Imaging Report ---
EXAM: XRAY Abdomen 1v HISTORY: Abdominal distention COMPARISON: 12/08/2019. TECHNIQUE: Frontal view of the abdomen obtained. FINDINGS: Midline skin [place] again noted. Gaseous distention of small bowel noted in the central abdomen not significantly changed. Bilateral ureteral stents remain in place. There also appears to be a drain in the pelvis. Calcific density right kidney adjacent to the proximal pigtail unchanged. There is no sign of free air. No acute abnormality noted of the visualized osseous structures. IMPRESSION: STABLE POSTOPERATIVE CHANGES WITH PROBABLE POSTOPERATIVE ILEUS. URETERAL STENTS IN PLACE. CATHETER DENSITY ADJACENT TO RIGHT PROXIMAL PIGTAIL UNCHANGED.
--- NOTE | 2019-12-13 16:30 | Diagnostic Imaging Report ---
EXAM: ULTRASOUND US Renal Comp CLINICAL HISTORY: Abdominal pain. Status post radical cystectomy and neobladder.. COMPARISON: None FINDINGS: The right kidney measures 11.1 x 4.8 x 5 cm and the left kidney measures 11.6 x 5.9 x 4.7 cm. There are bilateral renal cysts. Right renal echogenic foci noted with shadowing demonstrated presumably right intrarenal stones. No hydronephrosis. [place] bladder is not visualized. Patient has a Michael catheter in place. IMPRESSION: BILATERAL RENAL CYSTS. ECHOGENIC FOCI WITH SHADOWING IN THE RIGHT KIDNEY PRESUMABLY RIGHT RENAL STONES. NO HYDRONEPHROSIS.
--- NOTE | 2019-12-13 19:39 | NUR ---
NURSE NOTES: Received report from TRAVIS Mary. Patient sitting up in bed, NGT intact to intermittent suction. No distress noted at this time. Alert and oriented. No complaints of pain at this time. Bed in low position, locked, side rails up x2, call light within reach. Will continue to monitor.
[2019-12-13 20:00] VITALS: BP 152/80
--- NOTE | 2019-12-13 20:29 | NUR ---
HAND-OFF: Report given to Ondina ROBLES. Patient stable. Plan of care endorsed. Endorsed that patient is requesting something for sleep tonight.
--- NOTE | 2019-12-13 21:15 | NUR ---
NURSE NOTES: Noted saturation on dressing around suprapubic catheter. Dressing changed, no bleeding noted. Applied abdominal binder. Patient tolerated well. Will continue to monitor
[2019-12-14] VITALS: BP 150/64
[2019-12-14] MEDS: HYDROcodone/Acetamin 5/325 tab ORAL PRN ×2 (01:47→22:16)
[2019-12-14 04:00] VITALS: BP 140/70
[2019-12-14] MEDS: DiphenhydrAMINE 50mg/ml Inj IVP PRN (04:55)
[2019-12-14] MEDS: Piperacillin/Tazobactam 2.25 GM in D5W 55 ML IV SCH (07:15)
[2019-12-14 07:42] LABS: BASOPHILS % (AUTO) 1.2 % (0.0-2.0); EOSINOPHILS % (AUTO) 2.8 % (0.0-3.0); HEMATOCRIT 30.1 % (42.0-52.0); HEMOGLOBIN 10.3 G/DL (14.2-18.0); LYMPHOCYTES % (AUTO) 17.7 % (20.0-45.0); MEAN CORPUSCULAR VOLUME 86 FL (80-99); NEUTROPHILS % (AUTO) 68.3 % (45.0-75.0); PLATELET COUNT 317 K/UL (150-450); RED BLOOD COUNT 3.51 M/UL (4.70-6.10); RED CELL DISTRIBUTION WIDTH 14.2 % (11.6-14.8); WHITE BLOOD COUNT 8.4 K/UL (4.8-10.8)
[2019-12-14 07:56] LABS: % IRON SATURATION 16 % (15-50); IRON 33 ug/dL (50-175); TOTAL IRON BINDING CAPACITY 204 ug/dL (250-450)
[2019-12-14 08:00] VITALS: BP 141/76
--- NOTE | 2019-12-14 08:00 | NUR ---
NURSE NOTES: Received report from Ondina ROBLES. Patient is awake and oriented, no acute distress noted, reporting no pain but discomfort from abdominal distention. Dressing dry, abdominal binder in place. IVF running per order. NG tube in right nare secured, set to low intermittent suction, green output noted. Suprapubic and guzman catheters to gravity drainage, PELON drain compressed. Patient updated on plan of care for the day. Side rails upx2, bed low and locked, call light within reach.
[2019-12-14 08:02] LABS: ALANINE AMINOTRANSFERASE 35 U/L (12-78); ALBUMIN 2.3 G/DL (3.4-5.0); ALBUMIN/GLOBULIN RATIO 0.6 (1.0-2.7); ALKALINE PHOSPHATASE 91 U/L (46-116); ANION GAP 12 mmol/L (5-15); ASPARTATE AMINO TRANSFERASE 43 U/L (15-37); BILIRUBIN,TOTAL 0.3 MG/DL (0.2-1.0); BLOOD UREA NITROGEN 25 mg/dL (7-18); CALCIUM 8.1 MG/DL (8.5-10.1); CARBON DIOXIDE 21 MMOL/L (21-32); CHLORIDE 109 MMOL/L (98-107); CHOLESTEROL 65 MG/DL (< 200); CREATININE 1.6 MG/DL (0.55-1.30); FERRITIN 94 NG/ML (8-388); HDL CHOLESTEROL 15 MG/DL (40-60); PHOSPHORUS 2.6 MG/DL (2.5-4.9); POTASSIUM 3.6 MMOL/L (3.5-5.1); SODIUM 141 MMOL/L (136-145); TRIGLYCERIDES 63 MG/DL (30-150)
[2019-12-14] MEDS: Docusate 100mg cap ORAL SCH ×3 (09:12→17:53)
[2019-12-14] MEDS: Pantoprazole Inj IVP SCH ×2 (09:12→22:15)
[2019-12-14] MEDS: Carvedilol 12.5mg tab ORAL SCH ×2 (09:13→22:14)
--- NOTE | 2019-12-14 09:55 | NUR ---
NURSE NOTES: When patient got up to go to bathroom, NG tube slipped out of right nare. Dr. Arteaga notified and aware, no further orders received at this time.
--- NOTE | 2019-12-14 10:38 | NUR ---
NURSE NOTES: Noted patient's abdominal dressing saturated with yellow tinged drainage with a urine odor, changed dressing per order. Flushed guzman and suprapubic catheters per order, when flushing guzman catheter, noted guzman catheter leaking, patient stated that flushing is not painful, penis noted to be edematous. PELON drain emptied x3 this morning with total of 180mL out as of this time. Dr. Riddle came to see patient and MD notified of leaking guzman, large PELON output and edema to the penis. Per Dr. Riddle, he will contact Dr. Lindsay, no further orders received.
[2019-12-14 12:00] VITALS: BP 133/69
--- NOTE | 2019-12-14 12:10 | Pulmonology Progress Note ---
Subjective Interval Events: None new; having regular BM now; imaging studies reviewed Constitutional: Reports: no symptoms HEENT: Repors: no symptoms Respiratory: Reports: no symptoms Cardiovascular: Reports: no symptoms Gastrointestinal/Abdominal: Reports: no symptoms Genitourinary: Reports: no symptoms Neurologic: Reports: no symptoms Allergies: Coded Allergies: No Known Allergies (Unverified , 12/04/19) Objective Last 24 Hour Vital Signs Date Time Temp Pulse Resp B/P (MAP) Pulse Ox O2 Delivery O2 Flow Rate FiO2 12/14/19 09:13 60 141/76 12/14/19 09:13 60 141/76 12/14/19 09:00 Room Air 12/14/19 08:00 98.5 60 20 141/76 (97) 96 12/14/19 04:00 98.6 60 20 140/70 (93) 95 12/14/19 00:00 98.5 60 20 150/64 (92) 97 12/13/19 21:24 64 152/80 12/13/19 21:00 Room Air 12/13/19 20:00 98.8 64 18 152/80 (104) 97 12/13/19 16:00 97.9 63 18 123/67 (85) 96 Intake and Output 12/13/19 12/14/19 19:00 07:00 Intake Total 735 ml 1160 ml Output Total 2760 ml 1310 ml Balance -2025 ml -150 ml IV Total 705 ml 1100 ml Other 30 ml 60 ml Output Urine Total 50 ml 25 ml Gastric Drainage Total 1500 ml 325 ml Emesis 250 ml Drainage Total 160 ml 60 ml Other 800 ml 900 ml General Appearance: no acute distress HEENT: normocephalic Respiratory: chest wall non-tender, decreased breath sounds Cardiovascular: normal peripheral pulses Abdomen: hypoactive bowel sounds Extremities: no cyanosis Laboratory Tests 12/14/19 06:20: White Blood Count 8.4, Red Blood Count 3.51L, Hemoglobin 10.3L, Hematocrit 30.1L , Mean Corpuscular Volume 86#, Mean Corpuscular Hemoglobin 29.4, Mean Corpuscular Hemoglobin Concent 34.3, Red Cell Distribution Width 14.2, Platelet Count 317, Mean Platelet Volume 6.0L, Neutrophils (%) (Auto) 68.3, Lymphocytes ( %) (Auto) 17.7L, Monocytes (%) (Auto) 10.0, Eosinophils (%) (Auto) 2.8, Basophils (%) (Auto) 1.2, Sodium Level 141, Potassium Level 3.6, Chloride Level 109H, Carbon Dioxide Level 21, Anion Gap 12, Blood Urea Nitrogen 25H, Creatinine 1.6H, Estimat Glomerular Filtration Rate 42.8, Glucose Level 144H, Uric Acid 3.5, Calcium Level 8.1L, Phosphorus Level 2.6, Magnesium Level 1.8, Iron Level 33L, Total Iron Binding Capacity 204L, Percent Iron Saturation 16, Unsaturated Iron Binding 171, Ferritin 94, Total Bilirubin 0.3, Aspartate Amino Transf (AST/SGOT) 43H, Alanine Aminotransferase (ALT/SGPT) 35, Alkaline Phosphatase 91, C-Reactive Protein, Quantitative 5.6H, Pro-B-Type Natriuretic Peptide 678H, Total Protein 6.0L, Albumin 2.3L, Globulin 3.7, Albumin/Globulin Ratio 0.6L, Triglycerides Level 63, Cholesterol Level 65, LDL Cholesterol 41, HDL Cholesterol 15L, Cholesterol/HDL Ratio 4.3, Vitamin B12 Level 1204H, Folate 8.8 12/14/19 06:30: Urine Eosinophils None seen Current Medications Medications (Trade) Dose Ordered Sig/Octavia Route PRN Reason Start Time Stop Time Status Last Admin Dose Admin Acetaminophen (Tylenol) 650 mg Q6H PRN ORAL Mild Pain (Pain Scale 1-3) 12/04/19 12:15 01/03/20 12:14 12/13/19 05:47 Acetaminophen/ Hydrocodone Bitart ([place] 5/325) 1 tab Q4H PRN ORAL Moderate Pain (Pain Scale 4-6) 12/11/19 09:30 12/18/19 09:29 12/14/19 01:47 Amlodipine Besylate (Norvasc) 2.5 mg DAILY ORAL 12/14/19 09:00 01/09/20 08:59 12/14/19 09:13 Carvedilol (Coreg) 12.5 mg EVERY 12 HOURS ORAL 12/09/19 21:00 01/08/20 20:59 12/14/19 09:13 Dextrose 1,000 ml @ 100 mls/hr Q10H IV 12/13/19 11:00 01/12/20 10:59 12/14/19 08:00 Diphenhydramine HCl (Benadryl) 25 mg Q6H PRN IVP Itching 12/06/19 14:15 01/05/20 14:14 12/14/19 04:55 Docusate Sodium (Colace) 100 mg TID ORAL 12/13/19 13:00 01/10/20 17:59 12/14/19 09:12 Metoclopramide HCl (Reglan) 10 mg BEFORE MEALS ORAL 12/13/19 11:30 01/12/20 11:29 Metoclopramide HCl (Reglan) 10 mg Q6H PRN IVP Nausea & Vomiting 12/13/19 11:00 01/12/20 10:59 12/13/19 11:18 Pantoprazole (Protonix) 40 mg Q12HR IVP 12/13/19 21:00 01/06/20 08:59 12/14/19 09:12 Piperacillin Sod/ Tazobactam Sod 2.25 gm/Dextrose 55 ml @ 110 mls/hr Q8HR IV 12/12/19 22:00 12/19/19 21:59 12/14/19 07:15 Assessment/Plan Assessment/Plan IMPRESSION: 1. Postop day #10 status post cystectomy, prostatectomy and neobladder formation. 2. Hypertension. 3. Post-operative ileus, improving 4. Mild penile edema; advised scrotum and penis elevation DISCUSSION: Continue postoperative care. IV abx; now on Zosyn per ID Advance diet once cleared by Surgery. Has ileus NG fell out On prn Zofran I will follow carefully Labs reviewed. Respiratory status stable Has leucocytosis; improved Promise Hsieh Omar Syed MD December 14, 2019 12:10
--- NOTE | 2019-12-14 12:19 | Nephrology Progress Note ---
Assessment/Plan Problem List: (1) BASILIO (acute kidney injury) (2) Anemia (3) Postoperative ileus (4) HTN (hypertension) Assessment Acute kidney injury, likely due to medications, like Toradol Postop cystectomy prostatectomy and neobladder formation, history of invasive bladder cancer Story of hypertension Postoperative ileus Anemia Hypertension Dyslipidemia Vitamin D deficiency Osteoarthritis . Plan Patient had NG tube to low suction for ileus however it came out He is going to have NG tube reinserted again D5W 100 cc an hour Adjust stool softeners Start Reglan IV Check renal parameters tomorrow Adjust blood pressure medication Per orders Discussed with TRAVIS Cook Subjective ROS Limited/Unobtainable: No Constitutional: Reports: malaise Objective Objective Last 24 Hour Vital Signs Date Time Temp Pulse Resp B/P (MAP) Pulse Ox O2 Delivery O2 Flow Rate FiO2 12/14/19 09:13 60 141/76 12/14/19 09:13 60 141/76 12/14/19 09:00 Room Air 12/14/19 08:00 98.5 60 20 141/76 (97) 96 12/14/19 04:00 98.6 60 20 140/70 (93) 95 12/14/19 00:00 98.5 60 20 150/64 (92) 97 12/13/19 21:24 64 152/80 12/13/19 21:00 Room Air 12/13/19 20:00 98.8 64 18 152/80 (104) 97 12/13/19 16:00 97.9 63 18 123/67 (85) 96 Intake and Output 12/13/19 12/14/19 19:00 07:00 Intake Total 735 ml 1160 ml Output Total 2760 ml 1310 ml Balance -2025 ml -150 ml IV Total 705 ml 1100 ml Other 30 ml 60 ml Output Urine Total 50 ml 25 ml Gastric Drainage Total 1500 ml 325 ml Emesis 250 ml Drainage Total 160 ml 60 ml Other 800 ml 900 ml Laboratory Tests 12/14/19 06:20: White Blood Count 8.4, Red Blood Count 3.51L, Hemoglobin 10.3L, Hematocrit 30.1L , Mean Corpuscular Volume 86#, Mean Corpuscular Hemoglobin 29.4, Mean Corpuscular Hemoglobin Concent 34.3, Red Cell Distribution Width 14.2, Platelet Count 317, Mean Platelet Volume 6.0L, Neutrophils (%) (Auto) 68.3, Lymphocytes ( %) (Auto) 17.7L, Monocytes (%) (Auto) 10.0, Eosinophils (%) (Auto) 2.8, Basophils (%) (Auto) 1.2, Sodium Level 141, Potassium Level 3.6, Chloride Level 109H, Carbon Dioxide Level 21, Anion Gap 12, Blood Urea Nitrogen 25H, Creatinine 1.6H, Estimat Glomerular Filtration Rate 42.8, Glucose Level 144H, Uric Acid 3.5, Calcium Level 8.1L, Phosphorus Level 2.6, Magnesium Level 1.8, Iron Level 33L, Total Iron Binding Capacity 204L, Percent Iron Saturation 16, Unsaturated Iron Binding 171, Ferritin 94, Total Bilirubin 0.3, Aspartate Amino Transf (AST/SGOT) 43H, Alanine Aminotransferase (ALT/SGPT) 35, Alkaline Phosphatase 91, C-Reactive Protein, Quantitative 5.6H, Pro-B-Type Natriuretic Peptide 678H, Total Protein 6.0L, Albumin 2.3L, Globulin 3.7, Albumin/Globulin Ratio 0.6L, Triglycerides Level 63, Cholesterol Level 65, LDL Cholesterol 41, HDL Cholesterol 15L, Cholesterol/HDL Ratio 4.3, Vitamin B12 Level 1204H, Folate 8.8 12/14/19 06:30: Urine Eosinophils None seen Height (Feet): 5 Height (Inches): 6.00 Weight (Pounds): 183 General Appearance: lethargic EENT: other - NGT tube is out Cardiovascular: normal rate Respiratory/Chest: decreased breath sounds Abdomen: distended Javan Foster MD December 14, 2019 12:19
--- NOTE | 2019-12-14 12:45 | NUR ---
NURSE NOTES: Received call from Dr. Lindsay at 1235, notified Dr. Lindsay that guzman catheter is leaking when flushed. Also notified Dr. Lindsay that patient's PELON drain is having to be emptied every hour, PELON drain has been emptied 5 times as of start of shift with 230mL out as of this time. MD gave order to flush patient's catheters with 50mL of NS and assess whether output comes from the drainage tubing when flushed. Flushed catheters per order, guzman catheter noted to have small amount of leaking from around penis after being flushed and suprapubic catheter leaking from abdominal surgical insertion site when flushed, abdominal dressing changed. Called Dr. Lindsay back and notified MD of assessment findings. Per MD, he will come in to assess the patient. Addendum: 12/14/19 at 1411 by Joyce Fuentes RN NURSE NOTES: Edit: When suprapubic catheter flushed, leaking noted around suprapubic catheter insertion site on abdomen.
[2019-12-14] MEDS: Metoclopramide 10mg/2ml Inj IVP SCH ×2 (12:51→23:15)
[2019-12-14] MEDS ORDERED: Tubing IV Secondary IV ONE ×2 (14:15)
[2019-12-14] MEDS ORDERED: Sterile Water Irrig 1000ml IRRIG ONE (14:15)
[2019-12-14] MEDS ORDERED: NS 500ML ONE (14:15)
--- NOTE | 2019-12-14 15:06 | NUR ---
PT Note Was advised by nursing to defer PT tx today due to catheter complications.
--- NOTE | 2019-12-14 15:22 | NUR ---
NURSE NOTES: Patient seen by Dr. Lindsay. New order received to increase catheter flushing to four times a day with 50mL.
--- NOTE | 2019-12-14 15:59 | Infectious Diseases Prog Note ---
Assessment/Plan Assessment/Plan ASSESSMENT AND PLAN: 1. enterobacter uti, sepsis, leukocytosis, mrsa colonization - change to cefepime - day # 3 abx - f/u labs - can change to po abx when stable - leukocytosis much improved 2. Acute renal failure. 3. Anemia. 4. Bladder cancer, invasive bladder cancer. 5. Status post radical cystectomy and prostatectomy with neobladder. 6. Dyslipidemia. 7. Hypertension. 8. MRSA colonization. 9. Osteoarthritis. 10. Vitamin D deficiency. 11. Degenerative joint disease. 12. Hypertension and hyperlipidemia treatment per primary care team. 13. No known drug allergies. 14. Social history negative. 15. Family history noncontributory. 16. MAR is noted. 17. Case discussed with RN. Subjective Constitutional: Reports: fatigue; Denies: fever HEENT: Denies: congestion Respiratory: Denies: shortness of breath Cardiovascular: Denies: chest pain Gastrointestinal/Abdominal: Denies: nausea, vomiting, diarrhea Genitourinary: Reports: other - + guzman Neurologic: Denies: headache Psychiatric: Denies: depression Skin: Denies: rash Hematologic: Denies: bleeding Musculoskeletal: Denies: pain Allergies: Coded Allergies: No Known Allergies (Unverified , 12/04/19) Objective Vital Signs Last 24 Hour Vital Signs Date Time Temp Pulse Resp B/P (MAP) Pulse Ox O2 Delivery O2 Flow Rate FiO2 12/14/19 12:00 98.3 68 18 133/69 (90) 96 12/14/19 09:13 60 141/76 12/14/19 09:13 60 141/76 12/14/19 09:00 Room Air 12/14/19 08:00 98.5 60 20 141/76 (97) 96 12/14/19 04:00 98.6 60 20 140/70 (93) 95 12/14/19 00:00 98.5 60 20 150/64 (92) 97 12/13/19 21:24 64 152/80 12/13/19 21:00 Room Air 12/13/19 20:00 98.8 64 18 152/80 (104) 97 12/13/19 16:00 97.9 63 18 123/67 (85) 96 Height (Feet): 5 Height (Inches): 6.00 Weight (Pounds): 183 General Appearance: no acute distress HEENT: normocephalic, atraumatic, anicteric, mucous membranes moist, EOMI, supple, no JVD Respiratory/Chest: lungs clear, normal breath sounds, no respiratory distress, no accessory muscle use Cardiovascular: normal rate, regular rhythm, no gallop/murmur, no JVD Abdomen: normal bowel sounds, soft, non tender, no organomegaly, non distended Genitourinary: other - + guzman - urine clearer, no cva pain Extremities: no cyanosis Skin: no rash Neurologic/Psychiatric: lens polisher hand II-XII grossly normal, alert, oriented x 3, responsive Lymphatic: no neck adenopathy Musculoskeletal: no effusion Objective Procedure: XRAY Chest 1v Procedure: XRAY Chest 1v Reason for study: Reason For Exam: SOB Comparison films: None. FINDINGS: A single one view chest is obtained. Vascularity is normal. Streaky atelectasis is noted right lung base. Cardiac and mediastinal silhouette are within normal limits. CP angles are sharp. The bony thorax appear unremarkable. IMPRESSION: Streaky basilar atelectasis. Microbiology Date/Time Source Procedure Growth Status 12/11/19 11:40 Blood Blood Culture - Preliminary NO GROWTH AFTER 48 HOURS Resulted 12/04/19 06:10 Nasal Nares MRSA Culture - Final Staphylococcus Aureus - Mrsa Complete 12/11/19 11:30 Urine,Suprapubic Urine Culture - Final Enterobacter Cloacae Complex Complete Laboratory Tests Test 12/14/19 06:20 12/14/19 06:30 White Blood Count 8.4 K/UL (4.8-10.8) Red Blood Count 3.51 M/UL (4.70-6.10) L Hemoglobin 10.3 G/DL (14.2-18.0) L Hematocrit 30.1 % (42.0-52.0) L Mean Corpuscular Volume 86 FL (80-99) # Mean Corpuscular Hemoglobin 29.4 PG (27.0-31.0) Mean Corpuscular Hemoglobin Concent 34.3 G/DL (32.0-36.0) Red Cell Distribution Width 14.2 % (11.6-14.8) Platelet Count 317 K/UL (150-450) Mean Platelet Volume 6.0 FL (6.5-10.1) L Neutrophils (%) (Auto) 68.3 % (45.0-75.0) Lymphocytes (%) (Auto) 17.7 % (20.0-45.0) L Monocytes (%) (Auto) 10.0 % (1.0-10.0) Eosinophils (%) (Auto) 2.8 % (0.0-3.0) Basophils (%) (Auto) 1.2 % (0.0-2.0) Sodium Level 141 MMOL/L (136-145) Potassium Level 3.6 MMOL/L (3.5-5.1) Chloride Level 109 MMOL/L (98-107) H Carbon Dioxide Level 21 MMOL/L (21-32) Anion Gap 12 mmol/L (5-15) Blood Urea Nitrogen 25 mg/dL (7-18) H Creatinine 1.6 MG/DL (0.55-1.30) H Estimat Glomerular Filtration Rate 42.8 mL/min (>60) Glucose Level 144 MG/DL (74-106) H Uric Acid 3.5 MG/DL (2.6-7.2) Calcium Level 8.1 MG/DL (8.5-10.1) L Phosphorus Level 2.6 MG/DL (2.5-4.9) Magnesium Level 1.8 MG/DL (1.8-2.4) Iron Level 33 ug/dL (50-175) L Total Iron Binding Capacity 204 ug/dL (250-450) L Percent Iron Saturation 16 % (15-50) Unsaturated Iron Binding 171 ug/dL (112-346) Ferritin 94 NG/ML (8-388) Total Bilirubin 0.3 MG/DL (0.2-1.0) Aspartate Amino Transf (AST/SGOT) 43 U/L (15-37) H Alanine Aminotransferase (ALT/SGPT) 35 U/L (12-78) Alkaline Phosphatase 91 U/L (46-116) C-Reactive Protein, Quantitative 5.6 mg/dL (0.00-0.90) H Pro-B-Type Natriuretic Peptide 678 pg/mL (0-125) H Total Protein 6.0 G/DL (6.4-8.2) L Albumin 2.3 G/DL (3.4-5.0) L Globulin 3.7 g/dL Albumin/Globulin Ratio 0.6 (1.0-2.7) L Triglycerides Level 63 MG/DL (30-150) Cholesterol Level 65 MG/DL (< 200) LDL Cholesterol 41 mg/dL (<100) HDL Cholesterol 15 MG/DL (40-60) L Cholesterol/HDL Ratio 4.3 (3.3-4.4) Vitamin B12 Level 1204 PG/ML (193-986) H Folate 8.8 NG/ML (8.6-58.9) Urine Eosinophils None seen (NONE SEEN) Current Medications Medications (Trade) Dose Ordered Sig/Octavia Route PRN Reason Start Time Stop Time Status Last Admin Dose Admin Acetaminophen (Tylenol) 650 mg Q6H PRN ORAL Mild Pain (Pain Scale 1-3) 12/04/19 12:15 01/03/20 12:14 12/13/19 05:47 Acetaminophen/ Hydrocodone Bitart ([place] 5/325) 1 tab Q4H PRN ORAL Moderate Pain (Pain Scale 4-6) 12/11/19 09:30 12/18/19 09:29 12/14/19 01:47 Amlodipine Besylate (Norvasc) 2.5 mg DAILY ORAL 12/14/19 09:00 01/09/20 08:59 12/14/19 09:13 Carvedilol (Coreg) 12.5 mg EVERY 12 HOURS ORAL 12/09/19 21:00 01/08/20 20:59 12/14/19 09:13 Dextrose 1,000 ml @ 125 mls/hr Q8H IV 12/14/19 12:23 01/13/20 12:22 12/14/19 12:52 Docusate Sodium (Colace) 100 mg TID ORAL 12/13/19 13:00 01/10/20 17:59 12/14/19 09:12 Metoclopramide HCl (Reglan) 10 mg Q6H PRN IVP Nausea & Vomiting 12/13/19 11:00 01/12/20 10:59 12/13/19 11:18 Metoclopramide HCl (Reglan) 10 mg Q8HR IVP 12/14/19 12:21 01/13/20 12:20 12/14/19 12:51 Pantoprazole (Protonix) 40 mg Q12HR IVP 12/13/19 21:00 01/06/20 08:59 12/14/19 09:12 Piperacillin Sod/ Tazobactam Sod 3.375 gm/Sodium Chloride 110 ml @ 27.5 mls/hr EVERY 8 HOURS IVPB 12/14/19 22:00 12/19/19 21:59 Cecy Schreiber MD December 14, 2019 15:59
[2019-12-14 16:00] VITALS: BP 153/79
--- NOTE | 2019-12-14 19:00 | NUR ---
NURSE NOTES: Patient states he is feeling better since being seen by Dr. Lindsay. Since patient seen and catheters flushed by Dr. Lindsay, catheter outputs are as follows: Michael: 100mL Suprapubic: 175mL (total 420mL for shift) PELON: 15mL
--- NOTE | 2019-12-14 19:28 | NUR ---
HAND-OFF: Report given to Ondina ROBLES.
--- NOTE | 2019-12-14 19:30 | NUR ---
NURSE NOTES: Received report from TRAVIS Cook. Flushed suprapubic cath with 50 cc NS with return from guzman cath and flushed guzman cath with 50 cc NS with return from suprapubic cath. Patient alert, oriented, in good spirits. IV in LAC patent and intact. No complaints of pain at this time. Suprapubic dressing clean, dry and intact. Bed in low position, locked, side rails up x2, call light within reach. Will continue to monitor.
[2019-12-14 20:00] VITALS: BP 156/76
[2019-12-14] MEDS ORDERED: Zoysn 3.37gm in NS 100ML IVPB SCH (22:00)
--- NOTE | 2019-12-14 22:22 | Surgery Progress Note ---
Surgery Progress Note Subjective Additional Comments labs improved ng pulled while ambulatory drains with leak at bedside earlier with Dr. Beatty and drains flushed. Objective Last 24 Hour Vital Signs Date Time Temp Pulse Resp B/P (MAP) Pulse Ox O2 Delivery O2 Flow Rate FiO2 12/14/19 20:00 97.5 68 16 156/76 (102) 95 12/14/19 16:00 98.3 73 18 153/79 (103) 96 12/14/19 12:00 98.3 68 18 133/69 (90) 96 12/14/19 09:13 60 141/76 12/14/19 09:13 60 141/76 12/14/19 09:00 Room Air 12/14/19 08:00 98.5 60 20 141/76 (97) 96 12/14/19 04:00 98.6 60 20 140/70 (93) 95 12/14/19 00:00 98.5 60 20 150/64 (92) 97 I&O Intake and Output 12/13/19 12/14/19 19:00 07:00 Intake Total 735 ml 1160 ml Output Total 2760 ml 1310 ml Balance -2025 ml -150 ml IV Total 705 ml 1100 ml Other 30 ml 60 ml Output Urine Total 50 ml 25 ml Gastric Drainage Total 1500 ml 325 ml Emesis 250 ml Drainage Total 160 ml 60 ml Other 800 ml 900 ml Dressing: saturated Wound: clean, dry Cardiovascular: RSR Respiratory: clear Abdomen: soft, distended, non-tender, decreased bowel sounds Extremities: no edema, no tenderness, no cyanosis Laboratory Tests Test 12/14/19 06:20 12/14/19 06:30 White Blood Count 8.4 K/UL (4.8-10.8) Red Blood Count 3.51 M/UL (4.70-6.10) L Hemoglobin 10.3 G/DL (14.2-18.0) L Hematocrit 30.1 % (42.0-52.0) L Mean Corpuscular Volume 86 FL (80-99) # Mean Corpuscular Hemoglobin 29.4 PG (27.0-31.0) Mean Corpuscular Hemoglobin Concent 34.3 G/DL (32.0-36.0) Red Cell Distribution Width 14.2 % (11.6-14.8) Platelet Count 317 K/UL (150-450) Mean Platelet Volume 6.0 FL (6.5-10.1) L Neutrophils (%) (Auto) 68.3 % (45.0-75.0) Lymphocytes (%) (Auto) 17.7 % (20.0-45.0) L Monocytes (%) (Auto) 10.0 % (1.0-10.0) Eosinophils (%) (Auto) 2.8 % (0.0-3.0) Basophils (%) (Auto) 1.2 % (0.0-2.0) Sodium Level 141 MMOL/L (136-145) Potassium Level 3.6 MMOL/L (3.5-5.1) Chloride Level 109 MMOL/L (98-107) H Carbon Dioxide Level 21 MMOL/L (21-32) Anion Gap 12 mmol/L (5-15) Blood Urea Nitrogen 25 mg/dL (7-18) H Creatinine 1.6 MG/DL (0.55-1.30) H Estimat Glomerular Filtration Rate 42.8 mL/min (>60) Glucose Level 144 MG/DL (74-106) H Uric Acid 3.5 MG/DL (2.6-7.2) Calcium Level 8.1 MG/DL (8.5-10.1) L Phosphorus Level 2.6 MG/DL (2.5-4.9) Magnesium Level 1.8 MG/DL (1.8-2.4) Iron Level 33 ug/dL (50-175) L Total Iron Binding Capacity 204 ug/dL (250-450) L Percent Iron Saturation 16 % (15-50) Unsaturated Iron Binding 171 ug/dL (112-346) Ferritin 94 NG/ML (8-388) Total Bilirubin 0.3 MG/DL (0.2-1.0) Aspartate Amino Transf (AST/SGOT) 43 U/L (15-37) H Alanine Aminotransferase (ALT/SGPT) 35 U/L (12-78) Alkaline Phosphatase 91 U/L (46-116) C-Reactive Protein, Quantitative 5.6 mg/dL (0.00-0.90) H Pro-B-Type Natriuretic Peptide 678 pg/mL (0-125) H Total Protein 6.0 G/DL (6.4-8.2) L Albumin 2.3 G/DL (3.4-5.0) L Globulin 3.7 g/dL Albumin/Globulin Ratio 0.6 (1.0-2.7) L Triglycerides Level 63 MG/DL (30-150) Cholesterol Level 65 MG/DL (< 200) LDL Cholesterol 41 mg/dL (<100) HDL Cholesterol 15 MG/DL (40-60) L Cholesterol/HDL Ratio 4.3 (3.3-4.4) Vitamin B12 Level 1204 PG/ML (193-986) H Folate 8.8 NG/ML (8.6-58.9) Urine Eosinophils None seen (NONE SEEN) Plan Problems: (1) S/P radical cystoprostatectomy Assessment & Plan: abd pain not ambulatory drains evaluated flush guzman and suprapubic with 30cc NS TID ambulate and out of bed monitor labs will change pain rx to help control incentive spirometry Continue n.p.o. until return of bowel function. Given bowel surgery. A.m. labs. No signs of active bleeding. Catheter flushing clearing up. distended nausea possible ileus post op that would be anticipated labs noted kub reviewed likely ileus dressings changed drain monitored awaiting return of bowel function cont rx We will continue to follow with recommendations bowel function returning had BM full liquids distended n/v kub noted ng tube place npo ileus will await return of bowel function ng came out hold on reinsertion abd distention improved today had small bm drains irrigated and functional again will monitor closely Keenan Arteaga December 14, 2019 22:22
[2019-12-14] MEDS: LORazepam 1mg tab ORAL PRN (23:15)
[2019-12-15] VITALS: BP 149/74
[2019-12-15 04:00] VITALS: BP 125/61
[2019-12-15 05:56] LABS: BASOPHILS % (AUTO) 0.8 % (0.0-2.0); EOSINOPHILS % (AUTO) 3.2 % (0.0-3.0); HEMATOCRIT 31.1 % (42.0-52.0); HEMOGLOBIN 10.6 G/DL (14.2-18.0); LYMPHOCYTES % (AUTO) 19.5 % (20.0-45.0); MEAN CORPUSCULAR VOLUME 86 FL (80-99); MONOCYTES % (AUTO) 11.7 % (1.0-10.0); NEUTROPHILS % (AUTO) 64.7 % (45.0-75.0); PLATELET COUNT 318 K/UL (150-450); RED BLOOD COUNT 3.64 M/UL (4.70-6.10); RED CELL DISTRIBUTION WIDTH 13.7 % (11.6-14.8); WHITE BLOOD COUNT 8.2 K/UL (4.8-10.8)
[2019-12-15 06:03] LABS: ALANINE AMINOTRANSFERASE 25 U/L (12-78); ALBUMIN 2.2 G/DL (3.4-5.0); ALBUMIN/GLOBULIN RATIO 0.6 (1.0-2.7); ALKALINE PHOSPHATASE 84 U/L (46-116); ANION GAP 12 mmol/L (5-15); ASPARTATE AMINO TRANSFERASE 32 U/L (15-37); BILIRUBIN,TOTAL 0.4 MG/DL (0.2-1.0); BLOOD UREA NITROGEN 16 mg/dL (7-18); CALCIUM 8.6 MG/DL (8.5-10.1); CARBON DIOXIDE 22 MMOL/L (21-32); CHLORIDE 108 MMOL/L (98-107); CREATININE 1.3 MG/DL (0.55-1.30); POTASSIUM 3.6 MMOL/L (3.5-5.1); SODIUM 142 MMOL/L (136-145)
[2019-12-15] MEDS: Metoclopramide 10mg/2ml Inj IVP SCH ×3 (06:03→21:10)
--- NOTE | 2019-12-15 07:00 | NUR ---
NURSE NOTES: Suprapubic catheter flushed with 50 cc NS twice during ring conductor (around midnight and 0600 am) with good return both times from guzman catheter. Guzman also flushed with 50 cc NS twice during ring conductor with good return from suprapubic catheter.
--- NOTE | 2019-12-15 07:15 | NUR ---
HAND-OFF: Report given to TRAVIS Cook. Rounds done.
--- NOTE | 2019-12-15 07:30 | NUR ---
NURSE NOTES: Received report from Ondina ROBLES. Patient is asleep during rounds, in no apparent distress, RR even and unlabored. IVF running per order. Suprapubic and guzman catheters draining to gravity, PELON compressed. Side rails upx2, bed low and locked, call light within reach, bed alarm armed.
[2019-12-15 08:00] VITALS: BP 133/72
[2019-12-15] MEDS: Pantoprazole Inj IVP SCH ×2 (08:43→21:11)
[2019-12-15] MEDS: Docusate 100mg cap ORAL SCH ×3 (08:43→18:28)
[2019-12-15] MEDS: Carvedilol 12.5mg tab ORAL SCH ×2 (08:43→21:11)
--- NOTE | 2019-12-15 08:49 | Pulmonology Progress Note ---
Subjective ROS Limited/Unobtainable: No Interval Events: None new; having regular BM now; imaging studies reviewed Constitutional: Reports: fatigue; Denies: fever HEENT: Repors: no symptoms Respiratory: Reports: no symptoms Cardiovascular: Reports: no symptoms Gastrointestinal/Abdominal: Denies: nausea, vomiting, diarrhea Genitourinary: Reports: no symptoms Neurologic: Reports: no symptoms Psychiatric: Denies: depression Skin: Denies: rash Musculoskeletal: Denies: pain Allergies: Coded Allergies: No Known Allergies (Unverified , 12/04/19) Objective Last 24 Hour Vital Signs Date Time Temp Pulse Resp B/P (MAP) Pulse Ox O2 Delivery O2 Flow Rate FiO2 12/15/19 08:43 67 133/72 12/15/19 08:42 67 133/72 12/15/19 08:00 98.7 67 18 133/72 (92) 96 12/15/19 04:00 98.5 59 16 125/61 (82) 95 12/15/19 00:00 98.2 66 18 149/74 (99) 95 12/14/19 22:14 68 156/76 12/14/19 21:00 Room Air 12/14/19 20:00 97.5 68 16 156/76 (102) 95 12/14/19 16:00 98.3 73 18 153/79 (103) 96 12/14/19 12:00 98.3 68 18 133/69 (90) 96 12/14/19 09:13 60 141/76 12/14/19 09:13 60 141/76 12/14/19 09:00 Room Air Intake and Output 12/14/19 12/15/19 19:00 07:00 Intake Total 1250 ml Output Total 1125 ml 870 ml Balance 125 ml -870 ml IV Total 1250 ml Output Urine Total 520 ml 850 ml Gastric Drainage Total 100 ml Drainage Total 505 ml 20 ml # Bowel Movements 1 General Appearance: no acute distress HEENT: normocephalic Respiratory: chest wall non-tender, decreased breath sounds Cardiovascular: normal peripheral pulses Abdomen: hypoactive bowel sounds Extremities: no cyanosis Laboratory Tests 12/15/19 04:40: White Blood Count 8.2, Red Blood Count 3.64L, Hemoglobin 10.6L, Hematocrit 31.1L , Mean Corpuscular Volume 86, Mean Corpuscular Hemoglobin 29.1, Mean Corpuscular Hemoglobin Concent 34.1, Red Cell Distribution Width 13.7, Platelet Count 318, Mean Platelet Volume 5.9L, Neutrophils (%) (Auto) 64.7, Lymphocytes ( %) (Auto) 19.5L, Monocytes (%) (Auto) 11.7H, Eosinophils (%) (Auto) 3.2H, Basophils (%) (Auto) 0.8, Sodium Level 142, Potassium Level 3.6, Chloride Level 108H, Carbon Dioxide Level 22, Anion Gap 12, Blood Urea Nitrogen 16, Creatinine 1.3, Estimat Glomerular Filtration Rate 54.4, Glucose Level 137H, Uric Acid 3.4 , Calcium Level 8.6, Phosphorus Level 3.0, Magnesium Level 1.7L, Total Bilirubin 0.4, Aspartate Amino Transf (AST/SGOT) 32, Alanine Aminotransferase ( ALT/SGPT) 25, Alkaline Phosphatase 84, Total Protein 5.8L, Albumin 2.2L, Globulin 3.6, Albumin/Globulin Ratio 0.6L 12/15/19 05:50: Urine Eosinophils None seen Current Medications Medications (Trade) Dose Ordered Sig/Octavia Route PRN Reason Start Time Stop Time Status Last Admin Dose Admin Acetaminophen (Tylenol) 650 mg Q6H PRN ORAL Mild Pain (Pain Scale 1-3) 12/04/19 12:15 01/03/20 12:14 12/13/19 05:47 Acetaminophen/ Hydrocodone Bitart ([place] 5/325) 1 tab Q4H PRN ORAL Moderate Pain (Pain Scale 4-6) 12/11/19 09:30 12/18/19 09:29 12/14/19 22:16 Amlodipine Besylate (Norvasc) 2.5 mg DAILY ORAL 12/14/19 09:00 01/09/20 08:59 12/15/19 08:42 Carvedilol (Coreg) 12.5 mg EVERY 12 HOURS ORAL 12/09/19 21:00 01/08/20 20:59 12/15/19 08:43 Cefepime HCl 2 gm/ Dextrose 100 ml @ 200 mls/hr Q24H IVPB 12/14/19 18:00 12/21/19 17:59 12/14/19 17:49 Dextrose 1,000 ml @ 125 mls/hr Q8H IV 12/14/19 12:23 01/13/20 12:22 12/15/19 03:00 Docusate Sodium (Colace) 100 mg TID ORAL 12/13/19 13:00 01/10/20 17:59 12/15/19 08:43 Lorazepam (Ativan) 1 mg BEDTIME PRN ORAL Insomnia 12/14/19 22:30 12/21/19 22:29 12/14/19 23:15 Metoclopramide HCl (Reglan) 10 mg Q6H PRN IVP Nausea & Vomiting 12/13/19 11:00 01/12/20 10:59 12/13/19 11:18 Metoclopramide HCl (Reglan) 10 mg Q8HR IVP 12/14/19 12:21 01/13/20 12:20 12/15/19 06:03 Pantoprazole (Protonix) 40 mg Q12HR IVP 12/13/19 21:00 01/06/20 08:59 12/15/19 08:43 Assessment/Plan Assessment/Plan IMPRESSION: 1. Postop day #11 status post cystectomy, prostatectomy and neobladder formation. 2. Hypertension. 3. Post-operative ileus, improving 4. Mild penile edema; advised scrotum and penis elevation DISCUSSION: Continue postoperative care. S/p guzman irrigation per Dr Lindsay IV abx; now on Zosyn per ID Advance diet once cleared by Surgery. Ambulating in [place] today On prn Zofran I will follow carefully Labs reviewed. Respiratory status stable Has leucocytosis; improved Promise Hsieh Omar Syed MD December 15, 2019 08:49
--- NOTE | 2019-12-15 11:16 | Nephrology Progress Note ---
Assessment/Plan Problem List: (1) BASILIO (acute kidney injury) Assessment: Serum creatinine now within normal limit (2) Anemia (3) Postoperative ileus (4) HTN (hypertension) Assessment Acute kidney injury, likely due to medications, like Toradol Postop cystectomy prostatectomy and neobladder formation, history of invasive bladder cancer Story of hypertension Postoperative ileus Anemia Hypertension Dyslipidemia Vitamin D deficiency Osteoarthritis . Plan No further vomiting NG tube discontinued Serum creatinine within normal limits Cut down on IV fluid Continue per GI and surgery On Reglan IV Check renal parameters tomorrow Adjust blood pressure medication Per orders Discussed with TRAVIS Cook Subjective ROS Limited/Unobtainable: No Constitutional: Reports: malaise Objective Objective Last 24 Hour Vital Signs Date Time Temp Pulse Resp B/P (MAP) Pulse Ox O2 Delivery O2 Flow Rate FiO2 12/15/19 09:00 Room Air 12/15/19 08:43 67 133/72 12/15/19 08:42 67 133/72 12/15/19 08:00 98.7 67 18 133/72 (92) 96 12/15/19 04:00 98.5 59 16 125/61 (82) 95 12/15/19 00:00 98.2 66 18 149/74 (99) 95 12/14/19 22:14 68 156/76 12/14/19 21:00 Room Air 12/14/19 20:00 97.5 68 16 156/76 (102) 95 12/14/19 16:00 98.3 73 18 153/79 (103) 96 12/14/19 12:00 98.3 68 18 133/69 (90) 96 Intake and Output 12/14/19 12/15/19 19:00 07:00 Intake Total 1250 ml 125 ml Output Total 1125 ml 870 ml Balance 125 ml -745 ml IV Total 1250 ml 125 ml Output Urine Total 520 ml 850 ml Gastric Drainage Total 100 ml Drainage Total 505 ml 20 ml # Bowel Movements 1 Laboratory Tests 12/15/19 04:40: White Blood Count 8.2, Red Blood Count 3.64L, Hemoglobin 10.6L, Hematocrit 31.1L , Mean Corpuscular Volume 86, Mean Corpuscular Hemoglobin 29.1, Mean Corpuscular Hemoglobin Concent 34.1, Red Cell Distribution Width 13.7, Platelet Count 318, Mean Platelet Volume 5.9L, Neutrophils (%) (Auto) 64.7, Lymphocytes ( %) (Auto) 19.5L, Monocytes (%) (Auto) 11.7H, Eosinophils (%) (Auto) 3.2H, Basophils (%) (Auto) 0.8, Sodium Level 142, Potassium Level 3.6, Chloride Level 108H, Carbon Dioxide Level 22, Anion Gap 12, Blood Urea Nitrogen 16, Creatinine 1.3, Estimat Glomerular Filtration Rate 54.4, Glucose Level 137H, Uric Acid 3.4 , Calcium Level 8.6, Phosphorus Level 3.0, Magnesium Level 1.7L, Total Bilirubin 0.4, Aspartate Amino Transf (AST/SGOT) 32, Alanine Aminotransferase ( ALT/SGPT) 25, Alkaline Phosphatase 84, Total Protein 5.8L, Albumin 2.2L, Globulin 3.6, Albumin/Globulin Ratio 0.6L 12/15/19 05:50: Urine Eosinophils None seen Height (Feet): 5 Height (Inches): 6.00 Weight (Pounds): 183 General Appearance: no apparent distress Cardiovascular: normal rate Respiratory/Chest: decreased breath sounds Abdomen: soft Objective No change Javan Foster MD December 15, 2019 11:16
[2019-12-15 12:00] VITALS: BP 145/76
--- NOTE | 2019-12-15 12:57 | Surgery Progress Note ---
Surgery Progress Note Subjective Symptoms: improved Additional Comments drain output less catheters functional feels better no n/v/f/c Objective Last 24 Hour Vital Signs Date Time Temp Pulse Resp B/P (MAP) Pulse Ox O2 Delivery O2 Flow Rate FiO2 12/15/19 12:00 98.6 72 18 145/76 (99) 96 12/15/19 09:00 Room Air 12/15/19 08:43 67 133/72 12/15/19 08:42 67 133/72 12/15/19 08:00 98.7 67 18 133/72 (92) 96 12/15/19 04:00 98.5 59 16 125/61 (82) 95 12/15/19 00:00 98.2 66 18 149/74 (99) 95 12/14/19 22:14 68 156/76 12/14/19 21:00 Room Air 12/14/19 20:00 97.5 68 16 156/76 (102) 95 12/14/19 16:00 98.3 73 18 153/79 (103) 96 I&O Intake and Output 12/14/19 12/15/19 19:00 07:00 Intake Total 1250 ml 125 ml Output Total 1125 ml 870 ml Balance 125 ml -745 ml IV Total 1250 ml 125 ml Output Urine Total 520 ml 850 ml Gastric Drainage Total 100 ml Drainage Total 505 ml 20 ml # Bowel Movements 1 Dressing: dry Wound: clean Drains: other Cardiovascular: RSR Respiratory: decreased breath sounds Abdomen: soft, distended, non-tender, present bowel sounds Extremities: no tenderness, no cyanosis Laboratory Tests Test 12/15/19 04:40 12/15/19 05:50 White Blood Count 8.2 K/UL (4.8-10.8) Red Blood Count 3.64 M/UL (4.70-6.10) L Hemoglobin 10.6 G/DL (14.2-18.0) L Hematocrit 31.1 % (42.0-52.0) L Mean Corpuscular Volume 86 FL (80-99) Mean Corpuscular Hemoglobin 29.1 PG (27.0-31.0) Mean Corpuscular Hemoglobin Concent 34.1 G/DL (32.0-36.0) Red Cell Distribution Width 13.7 % (11.6-14.8) Platelet Count 318 K/UL (150-450) Mean Platelet Volume 5.9 FL (6.5-10.1) L Neutrophils (%) (Auto) 64.7 % (45.0-75.0) Lymphocytes (%) (Auto) 19.5 % (20.0-45.0) L Monocytes (%) (Auto) 11.7 % (1.0-10.0) H Eosinophils (%) (Auto) 3.2 % (0.0-3.0) H Basophils (%) (Auto) 0.8 % (0.0-2.0) Sodium Level 142 MMOL/L (136-145) Potassium Level 3.6 MMOL/L (3.5-5.1) Chloride Level 108 MMOL/L (98-107) H Carbon Dioxide Level 22 MMOL/L (21-32) Anion Gap 12 mmol/L (5-15) Blood Urea Nitrogen 16 mg/dL (7-18) Creatinine 1.3 MG/DL (0.55-1.30) Estimat Glomerular Filtration Rate 54.4 mL/min (>60) Glucose Level 137 MG/DL (74-106) H Uric Acid 3.4 MG/DL (2.6-7.2) Calcium Level 8.6 MG/DL (8.5-10.1) Phosphorus Level 3.0 MG/DL (2.5-4.9) Magnesium Level 1.7 MG/DL (1.8-2.4) L Total Bilirubin 0.4 MG/DL (0.2-1.0) Aspartate Amino Transf (AST/SGOT) 32 U/L (15-37) Alanine Aminotransferase (ALT/SGPT) 25 U/L (12-78) Alkaline Phosphatase 84 U/L (46-116) Total Protein 5.8 G/DL (6.4-8.2) L Albumin 2.2 G/DL (3.4-5.0) L Globulin 3.6 g/dL Albumin/Globulin Ratio 0.6 (1.0-2.7) L Urine Eosinophils None seen (NONE SEEN) Plan Problems: (1) S/P radical cystoprostatectomy Assessment & Plan: abd pain not ambulatory drains evaluated flush guzman and suprapubic with 30cc NS TID ambulate and out of bed monitor labs will change pain rx to help control incentive spirometry Continue n.p.o. until return of bowel function. Given bowel surgery. A.m. labs. No signs of active bleeding. Catheter flushing clearing up. distended nausea possible ileus post op that would be anticipated labs noted kub reviewed likely ileus dressings changed drain monitored awaiting return of bowel function cont rx We will continue to follow with recommendations bowel function returning had BM full liquids distended n/v kub noted ng tube place npo ileus will await return of bowel function ng came out hold on reinsertion abd distention improved today had small bm drains irrigated and functional again will monitor closely improving npo Keenan Arteaga December 15, 2019 12:57
[2019-12-15 16:00] VITALS: BP 131/80
--- NOTE | 2019-12-15 18:00 | NUR ---
NURSE NOTES: Patient walked several times today. Suprapubic and guzman catheters both with good output. Flushed catheters twice per order during shift. Will endorse last ordered daily flush to shift stacker RN.
[2019-12-15] MEDS: Cefepime HCl 1 GM in D5W 55 ML IVPB SCH (18:29)
--- NOTE | 2019-12-15 19:30 | NUR ---
HAND-OFF: Report given to Pat ROBLES.
--- NOTE | 2019-12-15 19:30 | NUR ---
NURSE NOTES: Report received from TRAVIS Cook. Patient in stable condition. Irrigated guzman catheter and suprapubic cath with 50 mL as ordered. Patient is seen ambulating with steady gait. Will monitor.
[2019-12-15 20:00] VITALS: BP 143/67
[2019-12-15] MEDS: HYDROcodone/Acetamin 5/325 tab ORAL PRN (21:11)
[2019-12-15] MEDS: LORazepam 1mg tab ORAL PRN (23:07)
[2019-12-16] VITALS: BP 115/70
[2019-12-16 04:00] VITALS: BP 124/80
[2019-12-16] MEDS: Metoclopramide 10mg/2ml Inj IVP SCH ×3 (05:52→21:17)
[2019-12-16] MEDS: Cefepime HCl 1 GM in D5W 55 ML IVPB SCH ×2 (05:52→17:55)
--- NOTE | 2019-12-16 06:34 | NUR ---
NURSE NOTES: Michael cath and suprapubic flush with 50 mL of NS as ordered. Patient tolerated procedure well. During my shift, patient had 1 loose bowel movement in the AM. Greenish brown liquid bowel movement. Total PELON output was 30 mL. Michael 150 mL. Suprapubic 675 mL.
[2019-12-16 07:29] LABS: BASOPHILS % (AUTO) 1.4 % (0.0-2.0); EOSINOPHILS % (AUTO) 2.9 % (0.0-3.0); HEMOGLOBIN 11.5 G/DL (14.2-18.0); LYMPHOCYTES % (AUTO) 15.2 % (20.0-45.0); MEAN CORPUSCULAR VOLUME 86 FL (80-99); MONOCYTES % (AUTO) 8.7 % (1.0-10.0); NEUTROPHILS % (AUTO) 71.8 % (45.0-75.0); PLATELET COUNT 354 K/UL (150-450); RED BLOOD COUNT 3.95 M/UL (4.70-6.10); RED CELL DISTRIBUTION WIDTH 14.7 % (11.6-14.8); WHITE BLOOD COUNT 10.1 K/UL (4.8-10.8)
--- NOTE | 2019-12-16 07:40 | NUR ---
NURSE NOTES: Report given to TRAVIS Azar. Patient in stable condition.
--- NOTE | 2019-12-16 07:50 | NUR ---
NURSE NOTES: pt in bed awake, has no complains of pain. pt has a guzman cath and a suprapubic catheter both draining well at this time. pt also has a vignesh Soriano drain that is draining well, fluid is pink in color. Call light is within in reach, bed locked and in lowest position. pt shows no cardiac or respiratory distress at this moment. Will continue to monitor
[2019-12-16 08:00] VITALS: BP 127/70
[2019-12-16 08:04] LABS: ALANINE AMINOTRANSFERASE 28 U/L (12-78); ALBUMIN 2.3 G/DL (3.4-5.0); ALBUMIN/GLOBULIN RATIO 0.5 (1.0-2.7); ALKALINE PHOSPHATASE 82 U/L (46-116); ANION GAP 10 mmol/L (5-15); ASPARTATE AMINO TRANSFERASE 36 U/L (15-37); BILIRUBIN,TOTAL 0.4 MG/DL (0.2-1.0); BLOOD UREA NITROGEN 10 mg/dL (7-18); CALCIUM 8.1 MG/DL (8.5-10.1); CARBON DIOXIDE 24 MMOL/L (21-32); CHLORIDE 107 MMOL/L (98-107); CREATININE 1.2 MG/DL (0.55-1.30); PHOSPHORUS 2.9 MG/DL (2.5-4.9); POTASSIUM 4.2 MMOL/L (3.5-5.1); SODIUM 141 MMOL/L (136-145)
--- NOTE | 2019-12-16 09:39 | Pulmonology Progress Note ---
Subjective ROS Limited/Unobtainable: No Interval Events: None new; having regular BM now; imaging studies reviewed Constitutional: Reports: fatigue; Denies: fever HEENT: Repors: no symptoms Respiratory: Reports: no symptoms Cardiovascular: Reports: no symptoms Gastrointestinal/Abdominal: Denies: nausea, vomiting, diarrhea Genitourinary: Reports: no symptoms Neurologic: Reports: no symptoms Psychiatric: Denies: depression Skin: Denies: rash Musculoskeletal: Denies: pain Allergies: Coded Allergies: No Known Allergies (Unverified , 12/04/19) Objective Last 24 Hour Vital Signs Date Time Temp Pulse Resp B/P (MAP) Pulse Ox O2 Delivery O2 Flow Rate FiO2 12/16/19 04:00 98.6 64 18 124/80 (95) 96 12/16/19 00:00 98.5 59 18 115/70 (85) 96 12/15/19 21:41 98.6 12/15/19 21:11 82 131/80 12/15/19 21:00 Room Air 12/15/19 20:00 98.5 69 16 143/67 (92) 96 12/15/19 16:00 98.6 82 20 131/80 (97) 96 12/15/19 12:00 98.6 72 18 145/76 (99) 96 Intake and Output 12/15/19 12/16/19 19:00 07:00 Intake Total 1205 ml Output Total 1330 ml 855 ml Balance -125 ml -855 ml IV Total 1205 ml Output Urine Total 1300 ml 825 ml Drainage Total 30 ml 30 ml # Bowel Movements 1 General Appearance: no acute distress HEENT: normocephalic Respiratory: chest wall non-tender, decreased breath sounds Cardiovascular: normal peripheral pulses Abdomen: hypoactive bowel sounds Extremities: no cyanosis Laboratory Tests 12/16/19 07:00: White Blood Count 10.1, Red Blood Count 3.95L, Hemoglobin 11.5L, Hematocrit 34.0L, Mean Corpuscular Volume 86, Mean Corpuscular Hemoglobin 29.0, Mean Corpuscular Hemoglobin Concent 33.7, Red Cell Distribution Width 14.7, Platelet Count 354, Mean Platelet Volume 6.3L, Neutrophils (%) (Auto) 71.8, Lymphocytes ( %) (Auto) 15.2L, Monocytes (%) (Auto) 8.7, Eosinophils (%) (Auto) 2.9, Basophils (%) (Auto) 1.4, Sodium Level 141, Potassium Level 4.2, Chloride Level 107, Carbon Dioxide Level 24, Anion Gap 10, Blood Urea Nitrogen 10, Creatinine 1.2, Estimat Glomerular Filtration Rate 59.7, Glucose Level 129H, Calcium Level 8.1L, Phosphorus Level 2.9, Magnesium Level 1.8, Total Bilirubin 0.4, Aspartate Amino Transf (AST/SGOT) 36, Alanine Aminotransferase (ALT/SGPT) 28, Alkaline Phosphatase 82, C-Reactive Protein, Quantitative 4.7H, Total Protein 6.5, Albumin 2.3L, Globulin 4.2, Albumin/Globulin Ratio 0.5L Current Medications Medications (Trade) Dose Ordered Sig/Octavia Route PRN Reason Start Time Stop Time Status Last Admin Dose Admin Acetaminophen (Tylenol) 650 mg Q6H PRN ORAL Mild Pain (Pain Scale 1-3) 12/04/19 12:15 01/03/20 12:14 12/13/19 05:47 Acetaminophen/ Hydrocodone Bitart ([place] 5/325) 1 tab Q4H PRN ORAL Moderate Pain (Pain Scale 4-6) 12/11/19 09:30 12/18/19 09:29 12/15/19 21:11 Amlodipine Besylate (Norvasc) 2.5 mg DAILY ORAL 12/14/19 09:00 01/09/20 08:59 12/15/19 08:42 Carvedilol (Coreg) 12.5 mg EVERY 12 HOURS ORAL 12/09/19 21:00 01/08/20 20:59 12/15/19 21:11 Cefepime HCl 1 gm/ Dextrose 55 ml @ 110 mls/hr Q12H IVPB 12/15/19 18:00 12/22/19 17:59 12/16/19 05:52 Dextrose 1,000 ml @ 50 mls/hr Q20H IV 12/15/19 11:30 01/13/20 11:29 12/15/19 23:10 Docusate Sodium (Colace) 100 mg TID ORAL 12/13/19 13:00 01/10/20 17:59 12/15/19 18:28 Lorazepam (Ativan) 1 mg BEDTIME PRN ORAL Insomnia 12/14/19 22:30 12/21/19 22:29 12/15/19 23:07 Metoclopramide HCl (Reglan) 10 mg Q6H PRN IVP Nausea & Vomiting 12/13/19 11:00 01/12/20 10:59 12/13/19 11:18 Metoclopramide HCl (Reglan) 10 mg Q8HR IVP 12/14/19 12:21 01/13/20 12:20 12/16/19 05:52 Pantoprazole (Protonix) 40 mg Q12HR IVP 12/13/19 21:00 01/06/20 08:59 12/15/19 21:11 Assessment/Plan Assessment/Plan IMPRESSION: 1. Postop day #12 status post cystectomy, prostatectomy and neobladder formation. 2. Hypertension. 3. Post-operative ileus, improving 4. Mild penile edema; advised scrotum and penis elevation DISCUSSION: Continue postoperative care. S/p guzman irrigation per Dr Lindsay On Zosyn per ID Advance diet once cleared by Surgery. Abdomen less distended On prn Zofran I will follow carefully Labs reviewed. Respiratory status stable Promise Hsieh Omar Syed MD December 16, 2019 09:39
--- NOTE | 2019-12-16 09:53 | Nephrology Progress Note ---
Assessment/Plan Problem List: (1) BASILIO (acute kidney injury) Assessment: Serum creatinine now within normal limit (2) Anemia (3) Postoperative ileus (4) HTN (hypertension) Assessment Acute kidney injury, likely due to medications, like Toradol Postop cystectomy prostatectomy and neobladder formation, history of invasive bladder cancer Story of hypertension Postoperative ileus Anemia Hypertension Dyslipidemia Vitamin D deficiency Osteoarthritis . Plan No further vomiting, patient passes gas and had bowel movement Start clear liquids Renal parameters now within normal limits Continue per consultants Cut down on IV fluid Continue per GI and surgery On Reglan IV Check renal parameters tomorrow Adjust blood pressure medication Per orders Discussed with TRAVIS Cook Subjective ROS Limited/Unobtainable: No Objective Objective Last 24 Hour Vital Signs Date Time Temp Pulse Resp B/P (MAP) Pulse Ox O2 Delivery O2 Flow Rate FiO2 12/16/19 04:00 98.6 64 18 124/80 (95) 96 12/16/19 00:00 98.5 59 18 115/70 (85) 96 12/15/19 21:41 98.6 12/15/19 21:11 82 131/80 12/15/19 21:00 Room Air 12/15/19 20:00 98.5 69 16 143/67 (92) 96 12/15/19 16:00 98.6 82 20 131/80 (97) 96 12/15/19 12:00 98.6 72 18 145/76 (99) 96 Intake and Output 12/15/19 12/16/19 19:00 07:00 Intake Total 1205 ml Output Total 1330 ml 855 ml Balance -125 ml -855 ml IV Total 1205 ml Output Urine Total 1300 ml 825 ml Drainage Total 30 ml 30 ml # Bowel Movements 1 Laboratory Tests 12/16/19 07:00: White Blood Count 10.1, Red Blood Count 3.95L, Hemoglobin 11.5L, Hematocrit 34.0L, Mean Corpuscular Volume 86, Mean Corpuscular Hemoglobin 29.0, Mean Corpuscular Hemoglobin Concent 33.7, Red Cell Distribution Width 14.7, Platelet Count 354, Mean Platelet Volume 6.3L, Neutrophils (%) (Auto) 71.8, Lymphocytes ( %) (Auto) 15.2L, Monocytes (%) (Auto) 8.7, Eosinophils (%) (Auto) 2.9, Basophils (%) (Auto) 1.4, Sodium Level 141, Potassium Level 4.2, Chloride Level 107, Carbon Dioxide Level 24, Anion Gap 10, Blood Urea Nitrogen 10, Creatinine 1.2, Estimat Glomerular Filtration Rate 59.7, Glucose Level 129H, Calcium Level 8.1L, Phosphorus Level 2.9, Magnesium Level 1.8, Total Bilirubin 0.4, Aspartate Amino Transf (AST/SGOT) 36, Alanine Aminotransferase (ALT/SGPT) 28, Alkaline Phosphatase 82, C-Reactive Protein, Quantitative 4.7H, Total Protein 6.5, Albumin 2.3L, Globulin 4.2, Albumin/Globulin Ratio 0.5L Height (Feet): 5 Height (Inches): 6.00 Weight (Pounds): 183 General Appearance: no apparent distress Cardiovascular: normal rate Respiratory/Chest: lungs clear Abdomen: soft Objective No change Javan Foster MD December 16, 2019 09:53
[2019-12-16] MEDS: Docusate 100mg cap ORAL SCH ×3 (10:19→17:55)
[2019-12-16] MEDS: Carvedilol 12.5mg tab ORAL SCH ×2 (10:19→21:17)
[2019-12-16] MEDS: Pantoprazole Inj IVP SCH ×2 (10:19→21:17)
[2019-12-16 12:00] VITALS: BP 131/71
[2019-12-16 16:00] VITALS: BP 134/77
--- NOTE | 2019-12-16 16:17 | NUR ---
NURSE NOTES: flused supra pubic cath. guzman with 50ml each. emptied guzman 100ml , supra pubic cath collected 550ml
--- NOTE | 2019-12-16 18:41 | Infectious Diseases Prog Note ---
Assessment/Plan Assessment/Plan ASSESSMENT AND PLAN: 1. enterobacter uti, sepsis, leukocytosis, mrsa colonization - cefepime - day # 5 abx - f/u labs - can change to po abx soon - leukocytosis resolved - clinically improved 2. Acute renal failure. 3. Anemia. 4. Bladder cancer, invasive bladder cancer. 5. Status post radical cystectomy and prostatectomy with neobladder. 6. Dyslipidemia. 7. Hypertension. 8. MRSA colonization. 9. Osteoarthritis. 10. Vitamin D deficiency. 11. Degenerative joint disease. 12. Hypertension and hyperlipidemia treatment per primary care team. 13. No known drug allergies. 14. Social history negative. 15. Family history noncontributory. 16. MAR is noted. 17. Case discussed with RN. Subjective Constitutional: Denies: fever HEENT: Denies: congestion Respiratory: Denies: shortness of breath Cardiovascular: Denies: chest pain Gastrointestinal/Abdominal: Denies: nausea, vomiting, diarrhea Genitourinary: Reports: other - + guzman ; Denies: hematuria Neurologic: Denies: headache Psychiatric: Denies: depression Skin: Denies: rash Hematologic: Denies: bleeding Musculoskeletal: Denies: pain Allergies: Coded Allergies: No Known Allergies (Unverified , 12/04/19) Objective Vital Signs Last 24 Hour Vital Signs Date Time Temp Pulse Resp B/P (MAP) Pulse Ox O2 Delivery O2 Flow Rate FiO2 12/16/19 16:00 97.6 71 18 134/77 (96) 97 12/16/19 12:00 97.4 61 20 131/71 (91) 96 12/16/19 10:20 69 127/70 12/16/19 10:19 69 127/70 12/16/19 09:00 Room Air 12/16/19 08:00 97.5 69 18 127/70 (89) 97 12/16/19 04:00 98.6 64 18 124/80 (95) 96 12/16/19 00:00 98.5 59 18 115/70 (85) 96 12/15/19 21:41 98.6 12/15/19 21:11 82 131/80 12/15/19 21:00 Room Air 12/15/19 20:00 98.5 69 16 143/67 (92) 96 Height (Feet): 5 Height (Inches): 6.00 Weight (Pounds): 183 General Appearance: no acute distress HEENT: normocephalic, atraumatic, anicteric, mucous membranes moist Respiratory/Chest: lungs clear, normal breath sounds, no respiratory distress, no accessory muscle use Cardiovascular: normal rate, regular rhythm, no gallop/murmur, no JVD Abdomen: normal bowel sounds, soft, non tender, no organomegaly, non distended Genitourinary: other - + guzman - urine clearer Extremities: no cyanosis Skin: no rash Neurologic/Psychiatric: parquetry floor layer II-XII grossly normal, alert, oriented x 3, responsive Lymphatic: no neck adenopathy Musculoskeletal: no effusion Objective Procedure: XRAY Chest 1v Procedure: XRAY Chest 1v Reason for study: Reason For Exam: SOB Comparison films: None. FINDINGS: A single one view chest is obtained. Vascularity is normal. Streaky atelectasis is noted right lung base. Cardiac and mediastinal silhouette are within normal limits. CP angles are sharp. The bony thorax appear unremarkable. IMPRESSION: Streaky basilar atelectasis. Microbiology Date/Time Source Procedure Growth Status 12/11/19 11:40 Blood Blood Culture - Preliminary NO GROWTH AFTER 4 DAYS Resulted 12/04/19 06:10 Nasal Nares MRSA Culture - Final Staphylococcus Aureus - Mrsa Complete 12/11/19 11:30 Urine,Suprapubic Urine Culture - Final Enterobacter Cloacae Complex Complete Laboratory Tests Test 12/16/19 07:00 White Blood Count 10.1 K/UL (4.8-10.8) Red Blood Count 3.95 M/UL (4.70-6.10) L Hemoglobin 11.5 G/DL (14.2-18.0) L Hematocrit 34.0 % (42.0-52.0) L Mean Corpuscular Volume 86 FL (80-99) Mean Corpuscular Hemoglobin 29.0 PG (27.0-31.0) Mean Corpuscular Hemoglobin Concent 33.7 G/DL (32.0-36.0) Red Cell Distribution Width 14.7 % (11.6-14.8) Platelet Count 354 K/UL (150-450) Mean Platelet Volume 6.3 FL (6.5-10.1) L Neutrophils (%) (Auto) 71.8 % (45.0-75.0) Lymphocytes (%) (Auto) 15.2 % (20.0-45.0) L Monocytes (%) (Auto) 8.7 % (1.0-10.0) Eosinophils (%) (Auto) 2.9 % (0.0-3.0) Basophils (%) (Auto) 1.4 % (0.0-2.0) Sodium Level 141 MMOL/L (136-145) Potassium Level 4.2 MMOL/L (3.5-5.1) Chloride Level 107 MMOL/L (98-107) Carbon Dioxide Level 24 MMOL/L (21-32) Anion Gap 10 mmol/L (5-15) Blood Urea Nitrogen 10 mg/dL (7-18) Creatinine 1.2 MG/DL (0.55-1.30) Estimat Glomerular Filtration Rate 59.7 mL/min (>60) Glucose Level 129 MG/DL (74-106) H Calcium Level 8.1 MG/DL (8.5-10.1) L Phosphorus Level 2.9 MG/DL (2.5-4.9) Magnesium Level 1.8 MG/DL (1.8-2.4) Total Bilirubin 0.4 MG/DL (0.2-1.0) Aspartate Amino Transf (AST/SGOT) 36 U/L (15-37) Alanine Aminotransferase (ALT/SGPT) 28 U/L (12-78) Alkaline Phosphatase 82 U/L (46-116) C-Reactive Protein, Quantitative 4.7 mg/dL (0.00-0.90) H Total Protein 6.5 G/DL (6.4-8.2) Albumin 2.3 G/DL (3.4-5.0) L Globulin 4.2 g/dL Albumin/Globulin Ratio 0.5 (1.0-2.7) L Current Medications Medications (Trade) Dose Ordered Sig/Octavia Route PRN Reason Start Time Stop Time Status Last Admin Dose Admin Acetaminophen (Tylenol) 650 mg Q6H PRN ORAL Mild Pain (Pain Scale 1-3) 12/04/19 12:15 01/03/20 12:14 12/13/19 05:47 Acetaminophen/ Hydrocodone Bitart ([place] 5/325) 1 tab Q4H PRN ORAL Moderate Pain (Pain Scale 4-6) 12/11/19 09:30 12/18/19 09:29 12/15/19 21:11 Amlodipine Besylate (Norvasc) 2.5 mg DAILY ORAL 12/14/19 09:00 01/09/20 08:59 12/16/19 10:20 Carvedilol (Coreg) 12.5 mg EVERY 12 HOURS ORAL 12/09/19 21:00 01/08/20 20:59 12/16/19 10:19 Cefepime HCl 1 gm/ Dextrose 55 ml @ 110 mls/hr Q12H IVPB 12/15/19 18:00 12/22/19 17:59 12/16/19 17:55 Dextrose 1,000 ml @ 50 mls/hr Q20H IV 12/15/19 11:30 01/13/20 11:29 12/15/19 23:10 Docusate Sodium (Colace) 100 mg TID ORAL 12/13/19 13:00 01/10/20 17:59 12/16/19 17:55 Lorazepam (Ativan) 1 mg BEDTIME PRN ORAL Insomnia 12/14/19 22:30 12/21/19 22:29 12/15/19 23:07 Metoclopramide HCl (Reglan) 10 mg Q6H PRN IVP Nausea & Vomiting 12/13/19 11:00 01/12/20 10:59 12/13/19 11:18 Metoclopramide HCl (Reglan) 10 mg Q8HR IVP 12/14/19 12:21 01/13/20 12:20 12/16/19 05:52 Pantoprazole (Protonix) 40 mg Q12HR IVP 12/13/19 21:00 01/06/20 08:59 12/16/19 10:19 Cecy Schreiber MD December 16, 2019 18:41
--- NOTE | 2019-12-16 18:43 | Surgery Progress Note ---
Surgery Progress Note Subjective Symptoms: improved, tolerating diet, passing flatus, BM, pain decreased Objective Last 24 Hour Vital Signs Date Time Temp Pulse Resp B/P (MAP) Pulse Ox O2 Delivery O2 Flow Rate FiO2 12/16/19 16:00 97.6 71 18 134/77 (96) 97 12/16/19 12:00 97.4 61 20 131/71 (91) 96 12/16/19 10:20 69 127/70 12/16/19 10:19 69 127/70 12/16/19 09:00 Room Air 12/16/19 08:00 97.5 69 18 127/70 (89) 97 12/16/19 04:00 98.6 64 18 124/80 (95) 96 12/16/19 00:00 98.5 59 18 115/70 (85) 96 12/15/19 21:41 98.6 12/15/19 21:11 82 131/80 12/15/19 21:00 Room Air 12/15/19 20:00 98.5 69 16 143/67 (92) 96 I&O Intake and Output 12/15/19 12/16/19 19:00 07:00 Intake Total 1205 ml Output Total 1330 ml 855 ml Balance -125 ml -855 ml IV Total 1205 ml Output Urine Total 1300 ml 825 ml Drainage Total 30 ml 30 ml # Bowel Movements 1 Dressing: dry Wound: clean Drains: lewis Cardiovascular: RSR Respiratory: clear Abdomen: soft, distended, non-tender, present bowel sounds Extremities: no edema, no tenderness, no cyanosis Laboratory Tests Test 12/16/19 07:00 White Blood Count 10.1 K/UL (4.8-10.8) Red Blood Count 3.95 M/UL (4.70-6.10) L Hemoglobin 11.5 G/DL (14.2-18.0) L Hematocrit 34.0 % (42.0-52.0) L Mean Corpuscular Volume 86 FL (80-99) Mean Corpuscular Hemoglobin 29.0 PG (27.0-31.0) Mean Corpuscular Hemoglobin Concent 33.7 G/DL (32.0-36.0) Red Cell Distribution Width 14.7 % (11.6-14.8) Platelet Count 354 K/UL (150-450) Mean Platelet Volume 6.3 FL (6.5-10.1) L Neutrophils (%) (Auto) 71.8 % (45.0-75.0) Lymphocytes (%) (Auto) 15.2 % (20.0-45.0) L Monocytes (%) (Auto) 8.7 % (1.0-10.0) Eosinophils (%) (Auto) 2.9 % (0.0-3.0) Basophils (%) (Auto) 1.4 % (0.0-2.0) Sodium Level 141 MMOL/L (136-145) Potassium Level 4.2 MMOL/L (3.5-5.1) Chloride Level 107 MMOL/L (98-107) Carbon Dioxide Level 24 MMOL/L (21-32) Anion Gap 10 mmol/L (5-15) Blood Urea Nitrogen 10 mg/dL (7-18) Creatinine 1.2 MG/DL (0.55-1.30) Estimat Glomerular Filtration Rate 59.7 mL/min (>60) Glucose Level 129 MG/DL (74-106) H Calcium Level 8.1 MG/DL (8.5-10.1) L Phosphorus Level 2.9 MG/DL (2.5-4.9) Magnesium Level 1.8 MG/DL (1.8-2.4) Total Bilirubin 0.4 MG/DL (0.2-1.0) Aspartate Amino Transf (AST/SGOT) 36 U/L (15-37) Alanine Aminotransferase (ALT/SGPT) 28 U/L (12-78) Alkaline Phosphatase 82 U/L (46-116) C-Reactive Protein, Quantitative 4.7 mg/dL (0.00-0.90) H Total Protein 6.5 G/DL (6.4-8.2) Albumin 2.3 G/DL (3.4-5.0) L Globulin 4.2 g/dL Albumin/Globulin Ratio 0.5 (1.0-2.7) L Plan Problems: (1) S/P radical cystoprostatectomy Assessment & Plan: abd pain not ambulatory drains evaluated flush guzman and suprapubic with 30cc NS TID ambulate and out of bed monitor labs will change pain rx to help control incentive spirometry Continue n.p.o. until return of bowel function. Given bowel surgery. A.m. labs. No signs of active bleeding. Catheter flushing clearing up. distended nausea possible ileus post op that would be anticipated labs noted kub reviewed likely ileus dressings changed drain monitored awaiting return of bowel function cont rx We will continue to follow with recommendations bowel function returning had BM full liquids distended n/v kub noted ng tube place npo ileus will await return of bowel function ng came out hold on reinsertion abd distention improved today had small bm drains irrigated and functional again will monitor closely improving PELON removed drains flushed improving d/c planning Keenan Arteaga December 16, 2019 18:43
--- NOTE | 2019-12-16 19:48 | NUR ---
HAND-OFF: Report given to Klarissa/RN pt in stable condition sitting on chair, endorsed plans of care.
--- NOTE | 2019-12-16 19:49 | NUR ---
NURSE NOTES: Received report & pt from TRAVIS Azar. Pt up in chair, a&ox4, in room air. No s/s of acute distress & no c/o pain. Michael & suprapubic cath intact & draining to gravity. Drsg intact with abd binder on. IV site intact with IVF running as ordered. Bed in lowest position, call light within reach. Will continue to monitor.
[2019-12-16 20:00] VITALS: BP 134/87
[2019-12-16] MEDS: HYDROcodone/Acetamin 5/325 tab ORAL PRN (21:17)
[2019-12-17] VITALS: BP 146/71
[2019-12-17 04:00] VITALS: BP 136/69
[2019-12-17] MEDS: Metoclopramide 10mg/2ml Inj IVP SCH (05:13)
[2019-12-17] MEDS: Cefepime HCl 1 GM in D5W 55 ML IVPB SCH ×2 (05:14→18:05)
[2019-12-17 06:29] LABS: BASOPHILS % (AUTO) 0.9 % (0.0-2.0); HEMATOCRIT 34.3 % (42.0-52.0); HEMOGLOBIN 11.7 G/DL (14.2-18.0); LYMPHOCYTES % (AUTO) 10.9 % (20.0-45.0); MEAN CORPUSCULAR VOLUME 86 FL (80-99); NEUTROPHILS % (AUTO) 78.2 % (45.0-75.0); PLATELET COUNT 341 K/UL (150-450); RED BLOOD COUNT 3.99 M/UL (4.70-6.10); RED CELL DISTRIBUTION WIDTH 14.2 % (11.6-14.8); WHITE BLOOD COUNT 10.6 K/UL (4.8-10.8)
[2019-12-17 06:47] LABS: ANION GAP 12 mmol/L (5-15); BLOOD UREA NITROGEN 17 mg/dL (7-18); CALCIUM 8.9 MG/DL (8.5-10.1); CARBON DIOXIDE 22 MMOL/L (21-32); CHLORIDE 106 MMOL/L (98-107); CREATININE 1.5 MG/DL (0.55-1.30); SODIUM 140 MMOL/L (136-145)
--- NOTE | 2019-12-17 07:30 | NUR ---
NURSE NOTES: pt in bed awake. Food tray at bedside. No complains of cardiac or respiratory distress. BEd in lowest position and locked call light within reach, bed side rails up x2. Will continue to monitor pt.
--- NOTE | 2019-12-17 07:32 | NUR ---
HAND-OFF: Report given to TRAVIS Azar. Pt in stable condition, up in chair, eating breakfast.
[2019-12-17 08:30] VITALS: BP 136/72
--- NOTE | 2019-12-17 08:36 | NUR ---
RADIOLOGY: BLANCA COMPLETED [id number]. NF
[2019-12-17] MEDS: Carvedilol 12.5mg tab ORAL SCH ×2 (09:06→21:11)
[2019-12-17] MEDS: Pantoprazole Inj IVP SCH (09:06)
[2019-12-17] MEDS: Docusate 100mg cap ORAL SCH ×3 (09:06→18:05)
--- NOTE | 2019-12-17 09:32 | Diagnostic Imaging Report ---
EXAM: XRAY Abdomen 1v HISTORY: Abdominal pain. COMPARISON: 12/13/2019. TECHNIQUE: Single frontal view of the abdomen obtained. FINDINGS: There is redemonstration of small bowel distention in the central abdomen. Midline skin virginia noted along with right lower quadrant clips. Bilateral ureteral stents again noted. Calcific density again seen at the proximal pigtail right kidney. There is no sign of free air. No acute abnormality noted of the visualized osseous structures. IMPRESSION: NO CHANGE IN GASEOUS DISTENTION OF SMALL BOWEL IN THE CENTRAL ABDOMEN PERHAPS A POSTOPERATIVE ILEUS
[2019-12-17 12:00] VITALS: BP 120/67
--- NOTE | 2019-12-17 13:17 | Surgery Progress Note ---
Surgery Progress Note Subjective Symptoms: improved, pain absent, tolerating diet, voiding well, passing flatus , BM Objective Last 24 Hour Vital Signs Date Time Temp Pulse Resp B/P (MAP) Pulse Ox O2 Delivery O2 Flow Rate FiO2 12/17/19 09:06 76 136/72 12/17/19 09:06 76 136/72 12/17/19 08:34 Room Air 12/17/19 08:30 98.2 76 18 136/72 (93) 97 12/17/19 04:00 98.2 79 20 136/69 (91) 96 12/17/19 00:00 97.9 73 21 146/71 (96) 96 12/16/19 21:17 96 134/87 12/16/19 21:00 Room Air 12/16/19 20:00 97.6 96 19 134/87 (103) 96 12/16/19 16:00 97.6 71 18 134/77 (96) 97 I&O Intake and Output 12/16/19 12/17/19 19:00 07:00 Intake Total 300 ml 350 ml Output Total 870 ml Balance 300 ml -520 ml Intake Oral 300 ml IV Total 350 ml Output Urine Total 870 ml # Voids 2 # Bowel Movements 2 2 Dressing: dry Wound: clean Cardiovascular: RSR Respiratory: clear Abdomen: soft, distended, non-tender, present bowel sounds Extremities: no edema, no tenderness, no cyanosis Laboratory Tests Test 12/17/19 05:05 White Blood Count 10.6 K/UL (4.8-10.8) Red Blood Count 3.99 M/UL (4.70-6.10) L Hemoglobin 11.7 G/DL (14.2-18.0) L Hematocrit 34.3 % (42.0-52.0) L Mean Corpuscular Volume 86 FL (80-99) Mean Corpuscular Hemoglobin 29.4 PG (27.0-31.0) Mean Corpuscular Hemoglobin Concent 34.2 G/DL (32.0-36.0) Red Cell Distribution Width 14.2 % (11.6-14.8) Platelet Count 341 K/UL (150-450) Mean Platelet Volume 6.1 FL (6.5-10.1) L Neutrophils (%) (Auto) 78.2 % (45.0-75.0) H Lymphocytes (%) (Auto) 10.9 % (20.0-45.0) L Monocytes (%) (Auto) 7.0 % (1.0-10.0) Eosinophils (%) (Auto) 3.0 % (0.0-3.0) Basophils (%) (Auto) 0.9 % (0.0-2.0) Sodium Level 140 MMOL/L (136-145) Potassium Level 4.0 MMOL/L (3.5-5.1) Chloride Level 106 MMOL/L (98-107) Carbon Dioxide Level 22 MMOL/L (21-32) Anion Gap 12 mmol/L (5-15) Blood Urea Nitrogen 17 mg/dL (7-18) Creatinine 1.5 MG/DL (0.55-1.30) H Estimat Glomerular Filtration Rate 46.1 mL/min (>60) Glucose Level 113 MG/DL (74-106) H Calcium Level 8.9 MG/DL (8.5-10.1) Plan Problems: (1) S/P radical cystoprostatectomy Assessment & Plan: abd pain not ambulatory drains evaluated flush guzman and suprapubic with 30cc NS TID ambulate and out of bed monitor labs will change pain rx to help control incentive spirometry Continue n.p.o. until return of bowel function. Given bowel surgery. A.m. labs. No signs of active bleeding. Catheter flushing clearing up. distended nausea possible ileus post op that would be anticipated labs noted kub reviewed likely ileus dressings changed drain monitored awaiting return of bowel function cont rx We will continue to follow with recommendations bowel function returning had BM full liquids distended n/v kub noted ng tube place npo ileus will await return of bowel function ng came out hold on reinsertion abd distention improved today had small bm drains irrigated and functional again will monitor closely improving PELON removed drains flushed improving d/c planning DC in [place] Wink[place] December 17, 2019 13:17
--- NOTE | 2019-12-17 14:25 | Nephrology Progress Note ---
Assessment/Plan Problem List: (1) BASILIO (acute kidney injury) Assessment: Serum creatinine now within normal limit (2) Anemia (3) Postoperative ileus (4) HTN (hypertension) Assessment Acute kidney injury, likely due to medications, like Toradol Postop cystectomy prostatectomy and neobladder formation, history of invasive bladder cancer Story of hypertension Postoperative ileus Anemia Hypertension Dyslipidemia Vitamin D deficiency Osteoarthritis . Plan No further vomiting, patient passes gas and had bowel movement Tolerating p.o. Renal parameters now almost normal limits Continue per consultants Cut down on IV fluid Continue per GI and surgery On Reglan IV Check renal parameters tomorrow Adjust blood pressure medication Per orders Discussed with TRAVIS Cook Subjective ROS Limited/Unobtainable: No Constitutional: Reports: malaise Objective Objective Last 24 Hour Vital Signs Date Time Temp Pulse Resp B/P (MAP) Pulse Ox O2 Delivery O2 Flow Rate FiO2 12/17/19 12:00 97.1 65 19 120/67 (84) 98 12/17/19 09:06 76 136/72 12/17/19 09:06 76 136/72 12/17/19 08:34 Room Air 12/17/19 08:30 98.2 76 18 136/72 (93) 97 12/17/19 04:00 98.2 79 20 136/69 (91) 96 12/17/19 00:00 97.9 73 21 146/71 (96) 96 12/16/19 21:17 96 134/87 12/16/19 21:00 Room Air 12/16/19 20:00 97.6 96 19 134/87 (103) 96 12/16/19 16:00 97.6 71 18 134/77 (96) 97 Intake and Output 12/16/19 12/17/19 19:00 07:00 Intake Total 300 ml 350 ml Output Total 870 ml Balance 300 ml -520 ml Intake Oral 300 ml IV Total 350 ml Output Urine Total 870 ml # Voids 2 # Bowel Movements 2 2 Current Medications Medications (Trade) Dose Ordered Sig/Octavia Route PRN Reason Start Time Stop Time Status Last Admin Dose Admin Acetaminophen (Tylenol) 650 mg Q6H PRN ORAL Mild Pain (Pain Scale 1-3) 12/04/19 12:15 01/03/20 12:14 12/13/19 05:47 Acetaminophen/ Hydrocodone Bitart ([place] 5/325) 1 tab Q4H PRN ORAL Moderate Pain (Pain Scale 4-6) 12/11/19 09:30 12/18/19 09:29 12/16/19 21:17 Amlodipine Besylate (Norvasc) 2.5 mg DAILY ORAL 12/14/19 09:00 01/09/20 08:59 12/17/19 09:06 Carvedilol (Coreg) 12.5 mg EVERY 12 HOURS ORAL 12/09/19 21:00 01/08/20 20:59 12/17/19 09:06 Cefepime HCl 1 gm/ Dextrose 55 ml @ 110 mls/hr Q12H IVPB 12/15/19 18:00 12/22/19 17:59 12/17/19 05:14 Docusate Sodium (Colace) 100 mg TID ORAL 12/13/19 13:00 01/10/20 17:59 12/17/19 13:00 Lorazepam (Ativan) 1 mg BEDTIME PRN ORAL Insomnia 12/14/19 22:30 12/21/19 22:29 12/15/19 23:07 Metoclopramide HCl (Reglan) 10 mg Q6H PRN IVP Nausea & Vomiting 12/13/19 11:00 01/12/20 10:59 12/13/19 11:18 Laboratory Tests 12/17/19 05:05: White Blood Count 10.6, Red Blood Count 3.99L, Hemoglobin 11.7L, Hematocrit 34.3L, Mean Corpuscular Volume 86, Mean Corpuscular Hemoglobin 29.4, Mean Corpuscular Hemoglobin Concent 34.2, Red Cell Distribution Width 14.2, Platelet Count 341, Mean Platelet Volume 6.1L, Neutrophils (%) (Auto) 78.2H, Lymphocytes (%) (Auto) 10.9L, Monocytes (%) (Auto) 7.0, Eosinophils (%) (Auto) 3.0, Basophils (%) (Auto) 0.9, Sodium Level 140, Potassium Level 4.0, Chloride Level 106, Carbon Dioxide Level 22, Anion Gap 12, Blood Urea Nitrogen 17, Creatinine 1.5H, Estimat Glomerular Filtration Rate 46.1, Glucose Level 113H, Calcium Level 8.9 Height (Feet): 5 Height (Inches): 6.00 Weight (Pounds): 183 Cardiovascular: normal rate Respiratory/Chest: lungs clear Abdomen: soft, distended Objective No change Javan Foster MD December 17, 2019 14:25
--- NOTE | 2019-12-17 15:24 | Pulmonology Progress Note ---
Subjective ROS Limited/Unobtainable: No Interval Events: None new; having regular BM now; imaging studies reviewed Constitutional: Denies: fever HEENT: Repors: no symptoms Respiratory: Reports: no symptoms Cardiovascular: Reports: no symptoms Gastrointestinal/Abdominal: Denies: nausea, vomiting, diarrhea Genitourinary: Reports: no symptoms Neurologic: Reports: no symptoms Psychiatric: Denies: depression Skin: Denies: rash Musculoskeletal: Denies: pain Allergies: Coded Allergies: No Known Allergies (Unverified , 12/04/19) Objective Last 24 Hour Vital Signs Date Time Temp Pulse Resp B/P (MAP) Pulse Ox O2 Delivery O2 Flow Rate FiO2 12/17/19 12:00 97.1 65 19 120/67 (84) 98 12/17/19 09:06 76 136/72 12/17/19 09:06 76 136/72 12/17/19 08:34 Room Air 12/17/19 08:30 98.2 76 18 136/72 (93) 97 12/17/19 04:00 98.2 79 20 136/69 (91) 96 12/17/19 00:00 97.9 73 21 146/71 (96) 96 12/16/19 21:17 96 134/87 12/16/19 21:00 Room Air 12/16/19 20:00 97.6 96 19 134/87 (103) 96 12/16/19 16:00 97.6 71 18 134/77 (96) 97 Intake and Output 12/16/19 12/17/19 19:00 07:00 Intake Total 300 ml 350 ml Output Total 870 ml Balance 300 ml -520 ml Intake Oral 300 ml IV Total 350 ml Output Urine Total 870 ml # Voids 2 # Bowel Movements 2 2 General Appearance: no acute distress HEENT: normocephalic Respiratory: chest wall non-tender, decreased breath sounds Cardiovascular: normal peripheral pulses Abdomen: hypoactive bowel sounds Extremities: no cyanosis Laboratory Tests 12/17/19 05:05: White Blood Count 10.6, Red Blood Count 3.99L, Hemoglobin 11.7L, Hematocrit 34.3L, Mean Corpuscular Volume 86, Mean Corpuscular Hemoglobin 29.4, Mean Corpuscular Hemoglobin Concent 34.2, Red Cell Distribution Width 14.2, Platelet Count 341, Mean Platelet Volume 6.1L, Neutrophils (%) (Auto) 78.2H, Lymphocytes (%) (Auto) 10.9L, Monocytes (%) (Auto) 7.0, Eosinophils (%) (Auto) 3.0, Basophils (%) (Auto) 0.9, Sodium Level 140, Potassium Level 4.0, Chloride Level 106, Carbon Dioxide Level 22, Anion Gap 12, Blood Urea Nitrogen 17, Creatinine 1.5H, Estimat Glomerular Filtration Rate 46.1, Glucose Level 113H, Calcium Level 8.9 Current Medications Medications (Trade) Dose Ordered Sig/Octavia Route PRN Reason Start Time Stop Time Status Last Admin Dose Admin Acetaminophen (Tylenol) 650 mg Q6H PRN ORAL Mild Pain (Pain Scale 1-3) 12/04/19 12:15 01/03/20 12:14 12/13/19 05:47 Acetaminophen/ Hydrocodone Bitart ([place] 5/325) 1 tab Q4H PRN ORAL Moderate Pain (Pain Scale 4-6) 12/11/19 09:30 12/18/19 09:29 12/16/19 21:17 Amlodipine Besylate (Norvasc) 2.5 mg DAILY ORAL 12/14/19 09:00 01/09/20 08:59 12/17/19 09:06 Carvedilol (Coreg) 12.5 mg EVERY 12 HOURS ORAL 12/09/19 21:00 01/08/20 20:59 12/17/19 09:06 Cefepime HCl 1 gm/ Dextrose 55 ml @ 110 mls/hr Q12H IVPB 12/15/19 18:00 12/22/19 17:59 12/17/19 05:14 Docusate Sodium (Colace) 100 mg TID ORAL 12/13/19 13:00 01/10/20 17:59 12/17/19 13:00 Lorazepam (Ativan) 1 mg BEDTIME PRN ORAL Insomnia 12/14/19 22:30 12/21/19 22:29 12/15/19 23:07 Metoclopramide HCl (Reglan) 10 mg Q6H PRN IVP Nausea & Vomiting 12/13/19 11:00 01/12/20 10:59 12/13/19 11:18 Pantoprazole (Protonix) 40 mg EVERY 12 HOURS ORAL 12/17/19 21:00 01/16/20 20:59 Assessment/Plan Assessment/Plan IMPRESSION: 1. Postop day #13 status post cystectomy, prostatectomy and neobladder formation. 2. Hypertension. 3. Post-operative ileus, resolved 4. Mild penile edema; advised scrotum and penis elevation DISCUSSION: Continue postoperative care. S/p guzman irrigation per Dr Lindsay On Zosyn per ID Advance diet per Surgery. I will follow carefully Labs reviewed. Respiratory status stable Dc planning Promise Hsieh Omar Syed MD December 17, 2019 15:24
[2019-12-17 16:00] VITALS: BP 121/73
--- NOTE | 2019-12-17 17:30 | NUR ---
NURSE NOTES: flushed both suprapubic and guzman catheters at 1130 and 1730. Out put from guzman 525mls and from suprapubic 75. Urine pink in color
--- NOTE | 2019-12-17 19:18 | NUR ---
HAND-OFF: Report given to jeanette Cyr in stable condition, siting in chair.
--- NOTE | 2019-12-17 19:27 | NUR ---
NURSE NOTES: Received report & pt from TRAVIS Azar. Pt up in chair, a&ox4, in room air. No s/s of acute distress & no c/o pain. Michael & suprapubic cath intact & draining to gravity. Drsg intact with abd binder on. IV site intact & S/L'd. Bed in lowest position, call light within reach. Will continue to monitor.
--- NOTE | 2019-12-17 19:56 | NUR ---
NURSE NOTES: Confirmed with Dr. Lindsay that he's aware that Dr. Arteaga has cleared pt for D/C tomorrow.
[2019-12-17 20:00] VITALS: BP 141/69
[2019-12-18] VITALS: BP 122/60
[2019-12-18 04:00] VITALS: BP 134/70
[2019-12-18] MEDS: Cefepime HCl 1 GM in D5W 55 ML IVPB SCH (05:45)
[2019-12-18 05:58] LABS: BASOPHILS % (AUTO) 1.2 % (0.0-2.0); EOSINOPHILS % (AUTO) 4.1 % (0.0-3.0); HEMATOCRIT 31.7 % (42.0-52.0); HEMOGLOBIN 10.6 G/DL (14.2-18.0); LYMPHOCYTES % (AUTO) 19.5 % (20.0-45.0); MEAN CORPUSCULAR VOLUME 86 FL (80-99); MONOCYTES % (AUTO) 11.1 % (1.0-10.0); NEUTROPHILS % (AUTO) 64.1 % (45.0-75.0); PLATELET COUNT 344 K/UL (150-450); RED CELL DISTRIBUTION WIDTH 14.2 % (11.6-14.8); WHITE BLOOD COUNT 7.4 K/UL (4.8-10.8)
--- NOTE | 2019-12-18 06:30 | NUR ---
NURSE NOTES: Pt complaining of stomach acid. Called & left a msg to Dr. Riddle.
[2019-12-18 06:43] LABS: ALANINE AMINOTRANSFERASE 33 U/L (12-78); ALBUMIN 2.4 G/DL (3.4-5.0); ALBUMIN/GLOBULIN RATIO 0.6 (1.0-2.7); ALKALINE PHOSPHATASE 82 U/L (46-116); ASPARTATE AMINO TRANSFERASE 46 U/L (15-37); BILIRUBIN,TOTAL 0.4 MG/DL (0.2-1.0); BLOOD UREA NITROGEN 18 mg/dL (7-18); CALCIUM 8.3 MG/DL (8.5-10.1); CHLORIDE 108 MMOL/L (98-107); CREATININE 1.3 MG/DL (0.55-1.30); PHOSPHORUS 3.3 MG/DL (2.5-4.9); SODIUM 141 MMOL/L (136-145)
[2019-12-18 06:48] LABS: CARBON DIOXIDE 21 MMOL/L (21-32)
--- NOTE | 2019-12-18 07:40 | NUR ---
HAND-OFF: Report given to TRAVIS Cook.
[2019-12-18 08:00] VITALS: BP 117/72
--- NOTE | 2019-12-18 08:17 | NUR ---
NURSE NOTES: Received report from Klarissa ROBELS. Patient is awake and oriented, no acute distress noted, reporting no pain. Surgical site c/d/i. Michael and suprapubic catheters to gravity drainage, draining yellow urine with small amount of mucus noted. IV asymptomatic, intact. Patient on soft diet and tolerating well. Per report, catheters last flushed by consulting intern RN at 0600. Patient updated on plan of care for the day. Side rails upx2, bed low and locked, call light within reach.
--- NOTE | 2019-12-18 08:25 | NUR ---
NURSE NOTES: Dr. Lindsay came to see patient. Per MD, patient is cleared to be discharged today. MD ordered to irrigate patient before d/c and MD stated home health is arranged and a home health nurse will be by to see patient tomorrow to irrigate catheters and educate patient how to irrigate catheters. MD ordered to remove surgical site virginia and apply benzoine tincture and steri strips, will carry out as ordered. Per , f/u with Dr. Arteaga for discharge order and med reconciliation.
[2019-12-18] MEDS: Docusate 100mg cap ORAL SCH ×2 (08:36→13:00)
[2019-12-18] MEDS: Carvedilol 12.5mg tab ORAL SCH (08:38)
--- NOTE | 2019-12-18 08:55 | NUR ---
CASE MANAGEMENT: REVIEW 12/16/19 SI:S/P RADICAL OPEN CYSTECTOMY, HEMICOLECTOMY AND PROSTATECTOMY NEOBLADDER ILEO CONDUIT URINARY DIVERSION, AND APPENDECTOMY BLADDER CANCER . MRSA + 97.5 72 18 105/73 96% ON RA NO LABS FOR MONDAY IS: IV CEFEPIME HCI BID COREG PO BID NORCO PO Q4HR/PRN TYLENOL Q6HR/PRN NORCO PO Q4HR/PRN \: 3E MED SURG UNIT DCP: HOME WHEN STABLE PLAN: IV ABX ADJUSTED ADVANCE DIET TOLERATE CASE MANAGEMENT: REVIEW 12/18/19 SI:S/P RADICAL OPEN CYSTECTOMY, HEMICOLECTOMY AND PROSTATECTOMY NEOBLADDER ILEO CONDUIT URINARY DIVERSION, AND APPENDECTOMY BLADDER CANCER . MRSA + 97.4 76 18 117/72 98% ON RA PHOS 1.7 CA+ 8.3 IS: IV CEFEPIME HCI BID COREG PO BID NORCO PO Q4HR/PRN TYLENOL Q6HR/PRN NORCO PO Q4HR/PRN \: 3E MED SURG UNIT DCP: HOME WHEN STABLE PLAN: DIET ADVANCE TO SOFT DIET AY DINNER [place] [facility] IN AM PER SURGERY
--- NOTE | 2019-12-18 09:09 | Nephrology Progress Note ---
Assessment/Plan Problem List: (1) BASILIO (acute kidney injury) Assessment: Serum creatinine now within normal limit (2) Anemia (3) Postoperative ileus (4) HTN (hypertension) Assessment Acute kidney injury, likely due to medications, like Toradol Postop cystectomy prostatectomy and neobladder formation, history of invasive bladder cancer Story of hypertension Postoperative ileus Anemia Hypertension Dyslipidemia Vitamin D deficiency Osteoarthritis . Plan Due DC today Tolerating p.o. Renal parameters now almost normal limits Continue per consultants Previously: Cut down on IV fluid Continue per GI and surgery On Reglan IV Check renal parameters tomorrow Adjust blood pressure medication Per orders Discussed with TRAVIS Cook Subjective ROS Limited/Unobtainable: No Constitutional: Reports: other Objective Objective Last 24 Hour Vital Signs Date Time Temp Pulse Resp B/P (MAP) Pulse Ox O2 Delivery O2 Flow Rate FiO2 12/18/19 08:38 76 117/72 12/18/19 08:38 76 117/72 12/18/19 08:00 97.4 76 18 117/72 (87) 98 12/18/19 04:00 98.1 60 18 134/70 (91) 95 12/18/19 00:00 98.2 60 16 122/60 (80) 95 12/17/19 21:11 70 141/69 12/17/19 20:34 Room Air 12/17/19 20:00 97.3 70 18 141/69 (93) 96 12/17/19 16:00 98.7 66 21 121/73 (89) 97 12/17/19 12:00 97.1 65 19 120/67 (84) 98 Intake and Output 12/17/19 12/18/19 19:00 07:00 Intake Total 1200 ml 240 ml Output Total 750 ml Balance 1200 ml -510 ml Intake Oral 1200 ml 240 ml Output Urine Total 750 ml # Bowel Movements 4 Current Medications Medications (Trade) Dose Ordered Sig/Octavia Route PRN Reason Start Time Stop Time Status Last Admin Dose Admin Acetaminophen (Tylenol) 650 mg Q6H PRN ORAL Mild Pain (Pain Scale 1-3) 12/04/19 12:15 01/03/20 12:14 12/13/19 05:47 Amlodipine Besylate (Norvasc) 2.5 mg DAILY ORAL 12/14/19 09:00 01/09/20 08:59 5/20/20 08:38 Carvedilol (Coreg) 12.5 mg EVERY 12 HOURS ORAL 12/09/19 21:00 01/08/20 20:59 12/18/19 08:38 Cefepime HCl 1 gm/ Dextrose 55 ml @ 110 mls/hr Q12H IVPB 12/15/19 18:00 12/22/19 17:59 12/18/19 05:45 Docusate Sodium (Colace) 100 mg TID ORAL 12/13/19 13:00 01/10/20 17:59 12/17/19 18:05 Lorazepam (Ativan) 1 mg BEDTIME PRN ORAL Insomnia 12/14/19 22:30 12/21/19 22:29 12/15/19 23:07 Metoclopramide HCl (Reglan) 10 mg Q6H PRN IVP Nausea & Vomiting 12/13/19 11:00 01/12/20 10:59 12/13/19 11:18 Pantoprazole (Protonix) 40 mg EVERY 12 HOURS ORAL 12/17/19 21:00 01/16/20 20:59 12/18/19 08:38 Laboratory Tests 12/18/19 04:45: White Blood Count 7.4, Red Blood Count 3.70L, Hemoglobin 10.6L, Hematocrit 31.7L , Mean Corpuscular Volume 86, Mean Corpuscular Hemoglobin 28.7, Mean Corpuscular Hemoglobin Concent 33.6, Red Cell Distribution Width 14.2, Platelet Count 344, Mean Platelet Volume 6.5, Neutrophils (%) (Auto) 64.1, Lymphocytes (% ) (Auto) 19.5L, Monocytes (%) (Auto) 11.1H, Eosinophils (%) (Auto) 4.1H, Basophils (%) (Auto) 1.2, Sodium Level 141, Potassium Level 4.0, Chloride Level 108H, Carbon Dioxide Level 21, Blood Urea Nitrogen 18, Creatinine 1.3, Estimat Glomerular Filtration Rate 54.4, Glucose Level 88, Calcium Level 8.3L, Phosphorus Level 3.3, Magnesium Level 1.7L, Total Bilirubin 0.4, Aspartate Amino Transf (AST/SGOT) 46H, Alanine Aminotransferase (ALT/SGPT) 33, Alkaline Phosphatase 82, Total Protein 6.3L, Albumin 2.4L, Globulin 3.9, Albumin/ Globulin Ratio 0.6L Height (Feet): 5 Height (Inches): 6.00 Weight (Pounds): 180 General Appearance: no apparent distress Cardiovascular: normal rate Respiratory/Chest: decreased breath sounds Abdomen: soft Objective No change Javan Foster MD December 18, 2019 09:09
--- NOTE | 2019-12-18 09:39 | NUR ---
RD ASSESSMENT & RECOMMENDATIONS SEE CARE ACTIVITY FOR COMPLETE ASSESSMENT DAILY ESTIMATED NEEDS: Needs based on Surgery 69kg adj 25-30 kcals/kg 9737-0205 total kcals 1-2 g protein/kg 69-138 g total protein 25-30 mL/kg 6343-6511 total fluid mLs NUTRITION DIAGNOSIS: Altered GI fxn r/t surgery as evidenced by s/p radical cystectomy and prostatectomy neobladder, diet now advanced to soft diet, bm this morning. PO DIET RECOMMENDATIONS: LOW NA/ SOFT diet. Monitor BG need for carb control diet ADDITIONAL RECOMMENDATIONS: 1) Obtain a standing weight as able 2) Add Ensure Clear to diet for better acceptance 3) Rec A1C for eval (BG 138-163) 4) diet texture as tolerated
--- NOTE | 2019-12-18 09:51 | NUR ---
NURSE NOTES: Lynne removed and steri strips applied by Dr. Arteaga. Patient tolerated well.
--- NOTE | 2019-12-18 10:07 | NUR ---
NURSE NOTES: D/c order received from Dr. Arteaga, home medications reviewed with MD and orders received to continue home medications. Levaquin/Colace Rx received and faxed to [facility] to fill prior to d/c.
--- NOTE | 2019-12-18 11:22 | Pulmonology Progress Note ---
Subjective ROS Limited/Unobtainable: No Interval Events: Much improved; on diet Constitutional: Denies: fever HEENT: Repors: no symptoms Respiratory: Reports: no symptoms Cardiovascular: Reports: no symptoms Gastrointestinal/Abdominal: Denies: nausea, vomiting, diarrhea Genitourinary: Reports: no symptoms Neurologic: Reports: no symptoms Psychiatric: Denies: depression Skin: Denies: rash Musculoskeletal: Denies: pain Allergies: Coded Allergies: No Known Allergies (Unverified , 12/04/19) Objective Last 24 Hour Vital Signs Date Time Temp Pulse Resp B/P (MAP) Pulse Ox O2 Delivery O2 Flow Rate FiO2 12/18/19 09:00 Room Air 12/18/19 08:38 76 117/72 12/18/19 08:38 76 117/72 12/18/19 08:00 97.4 76 18 117/72 (87) 98 12/18/19 04:00 98.1 60 18 134/70 (91) 95 12/18/19 00:00 98.2 60 16 122/60 (80) 95 12/17/19 21:11 70 141/69 12/17/19 20:34 Room Air 12/17/19 20:00 97.3 70 18 141/69 (93) 96 12/17/19 16:00 98.7 66 21 121/73 (89) 97 12/17/19 12:00 97.1 65 19 120/67 (84) 98 Intake and Output 12/17/19 12/18/19 19:00 07:00 Intake Total 1200 ml 240 ml Output Total 750 ml Balance 1200 ml -510 ml Intake Oral 1200 ml 240 ml Output Urine Total 750 ml # Bowel Movements 4 General Appearance: no acute distress HEENT: normocephalic Respiratory: chest wall non-tender, decreased breath sounds Cardiovascular: normal peripheral pulses Abdomen: hypoactive bowel sounds Extremities: no cyanosis Laboratory Tests 12/18/19 04:45: White Blood Count 7.4, Red Blood Count 3.70L, Hemoglobin 10.6L, Hematocrit 31.7L , Mean Corpuscular Volume 86, Mean Corpuscular Hemoglobin 28.7, Mean Corpuscular Hemoglobin Concent 33.6, Red Cell Distribution Width 14.2, Platelet Count 344, Mean Platelet Volume 6.5, Neutrophils (%) (Auto) 64.1, Lymphocytes (% ) (Auto) 19.5L, Monocytes (%) (Auto) 11.1H, Eosinophils (%) (Auto) 4.1H, Basophils (%) (Auto) 1.2, Sodium Level 141, Potassium Level 4.0, Chloride Level 108H, Carbon Dioxide Level 21, Blood Urea Nitrogen 18, Creatinine 1.3, Estimat Glomerular Filtration Rate 54.4, Glucose Level 88, Calcium Level 8.3L, Phosphorus Level 3.3, Magnesium Level 1.7L, Total Bilirubin 0.4, Aspartate Amino Transf (AST/SGOT) 46H, Alanine Aminotransferase (ALT/SGPT) 33, Alkaline Phosphatase 82, Total Protein 6.3L, Albumin 2.4L, Globulin 3.9, Albumin/ Globulin Ratio 0.6L Current Medications Medications (Trade) Dose Ordered Sig/Octavia Route PRN Reason Start Time Stop Time Status Last Admin Dose Admin Acetaminophen (Tylenol) 650 mg Q6H PRN ORAL Mild Pain (Pain Scale 1-3) 12/04/19 12:15 01/03/20 12:14 12/13/19 05:47 Amlodipine Besylate (Norvasc) 2.5 mg DAILY ORAL 12/14/19 09:00 01/09/20 08:59 12/18/19 08:38 Carvedilol (Coreg) 12.5 mg EVERY 12 HOURS ORAL 12/09/19 21:00 01/08/20 20:59 12/18/19 08:38 Cefepime HCl 1 gm/ Dextrose 55 ml @ 110 mls/hr Q12H IVPB 12/15/19 18:00 12/22/19 17:59 12/18/19 05:45 Docusate Sodium (Colace) 100 mg TID ORAL 12/13/19 13:00 01/10/20 17:59 12/17/19 18:05 Lorazepam (Ativan) 1 mg BEDTIME PRN ORAL Insomnia 12/14/19 22:30 12/21/19 22:29 12/15/19 23:07 Metoclopramide HCl (Reglan) 10 mg Q6H PRN IVP Nausea & Vomiting 12/13/19 11:00 01/12/20 10:59 12/13/19 11:18 Pantoprazole (Protonix) 40 mg EVERY 12 HOURS ORAL 12/17/19 21:00 01/16/20 20:59 12/18/19 08:38 Assessment/Plan Assessment/Plan IMPRESSION: 1. Postop day #14 status post cystectomy, prostatectomy and neobladder formation. 2. Hypertension. 3. Post-operative ileus, resolved 4. Mild penile edema; advised scrotum and penis elevation DISCUSSION: Dc home today Med Rx melissa PO Levaquin Promise Hsieh Omar Syed MD December 18, 2019 11:22
[2019-12-18 12:00] VITALS: BP 120/75
--- NOTE | 2019-12-18 13:00 | NUR ---
NURSE NOTES: Flushed patient's suprapubic and guzman catheters per order and changed drainage bags. Patient tolerated well. Guzman and suprapubic catheters draining yellow urine with no mucus/clots noted s/p flushing.
--- NOTE | 2019-12-18 14:21 | Surgery Progress Note ---
Surgery Progress Note Subjective Additional Comments Patient seen exam bedside. Midline wound [place] removed. Steri-Strips applied. Drain site from prior drain removal clean dry intact. Suprapubic and Guzman functional good output. Flushed. Patient with 0 pain. Tolerating diet having bowel movements. Rx written. Discharge planning completed. Okay to DC home from surgical standpoint. It is been a pleasure taking care of patient Objective Last 24 Hour Vital Signs Date Time Temp Pulse Resp B/P (MAP) Pulse Ox O2 Delivery O2 Flow Rate FiO2 12/18/19 12:00 97.1 65 18 120/75 (90) 96 12/18/19 09:00 Room Air 12/18/19 08:38 76 117/72 12/18/19 08:38 76 117/72 12/18/19 08:00 97.4 76 18 117/72 (87) 98 12/18/19 04:00 98.1 60 18 134/70 (91) 95 12/18/19 00:00 98.2 60 16 122/60 (80) 95 12/17/19 21:11 70 141/69 12/17/19 20:34 Room Air 12/17/19 20:00 97.3 70 18 141/69 (93) 96 12/17/19 16:00 98.7 66 21 121/73 (89) 97 I&O Intake and Output 12/17/19 12/18/19 19:00 07:00 Intake Total 1200 ml 240 ml Output Total 750 ml Balance 1200 ml -510 ml Intake Oral 1200 ml 240 ml Output Urine Total 750 ml # Bowel Movements 4 Dressing: dry Wound: clean Cardiovascular: RSR Respiratory: clear Abdomen: soft, non-tender, present bowel sounds, non-distended Extremities: no edema, no tenderness, no cyanosis Laboratory Tests Test 12/18/19 04:45 White Blood Count 7.4 K/UL (4.8-10.8) Red Blood Count 3.70 M/UL (4.70-6.10) L Hemoglobin 10.6 G/DL (14.2-18.0) L Hematocrit 31.7 % (42.0-52.0) L Mean Corpuscular Volume 86 FL (80-99) Mean Corpuscular Hemoglobin 28.7 PG (27.0-31.0) Mean Corpuscular Hemoglobin Concent 33.6 G/DL (32.0-36.0) Red Cell Distribution Width 14.2 % (11.6-14.8) Platelet Count 344 K/UL (150-450) Mean Platelet Volume 6.5 FL (6.5-10.1) Neutrophils (%) (Auto) 64.1 % (45.0-75.0) Lymphocytes (%) (Auto) 19.5 % (20.0-45.0) L Monocytes (%) (Auto) 11.1 % (1.0-10.0) H Eosinophils (%) (Auto) 4.1 % (0.0-3.0) H Basophils (%) (Auto) 1.2 % (0.0-2.0) Sodium Level 141 MMOL/L (136-145) Potassium Level 4.0 MMOL/L (3.5-5.1) Chloride Level 108 MMOL/L (98-107) H Carbon Dioxide Level 21 MMOL/L (21-32) Blood Urea Nitrogen 18 mg/dL (7-18) Creatinine 1.3 MG/DL (0.55-1.30) Estimat Glomerular Filtration Rate 54.4 mL/min (>60) Glucose Level 88 MG/DL (74-106) Calcium Level 8.3 MG/DL (8.5-10.1) L Phosphorus Level 3.3 MG/DL (2.5-4.9) Magnesium Level 1.7 MG/DL (1.8-2.4) L Total Bilirubin 0.4 MG/DL (0.2-1.0) Aspartate Amino Transf (AST/SGOT) 46 U/L (15-37) H Alanine Aminotransferase (ALT/SGPT) 33 U/L (12-78) Alkaline Phosphatase 82 U/L (46-116) Total Protein 6.3 G/DL (6.4-8.2) L Albumin 2.4 G/DL (3.4-5.0) L Globulin 3.9 g/dL Albumin/Globulin Ratio 0.6 (1.0-2.7) L Plan Problems: (1) S/P radical cystoprostatectomy Assessment & Plan: abd pain not ambulatory drains evaluated flush guzman and suprapubic with 30cc NS TID ambulate and out of bed monitor labs will change pain rx to help control incentive spirometry Continue n.p.o. until return of bowel function. Given bowel surgery. A.m. labs. No signs of active bleeding. Catheter flushing clearing up. distended nausea possible ileus post op that would be anticipated labs noted kub reviewed likely ileus dressings changed drain monitored awaiting return of bowel function cont rx We will continue to follow with recommendations bowel function returning had BM full liquids distended n/v kub noted ng tube place npo ileus will await return of bowel function ng came out hold on reinsertion abd distention improved today had small bm drains irrigated and functional again will monitor closely improving PELON removed drains flushed improving d/c planning DC in [place] December 18, 2019 14:21
--- NOTE | 2019-12-18 14:55 | Infectious Diseases Prog Note ---
Assessment/Plan Assessment/Plan ASSESSMENT AND PLAN: 1. enterobacter uti, sepsis, leukocytosis, mrsa colonization - cefepime - day # 7 abx - f/u labs - can change to po abx for one week - per d/w RN levofloxacin prescribed - leukocytosis resolved - clinically improved - stable from ID standpoint 2. Acute renal failure. 3. Anemia. 4. Bladder cancer, invasive bladder cancer. 5. Status post radical cystectomy and prostatectomy with neobladder. 6. Dyslipidemia. 7. Hypertension. 8. MRSA colonization. 9. Osteoarthritis. 10. Vitamin D deficiency. 11. Degenerative joint disease. 12. Hypertension and hyperlipidemia treatment per primary care team. 13. No known drug allergies. 14. Social history negative. 15. Family history noncontributory. 16. MAR is noted. 17. Case discussed with RN. Subjective Constitutional: Denies: fever HEENT: Denies: congestion Respiratory: Denies: shortness of breath Cardiovascular: Denies: chest pain Gastrointestinal/Abdominal: Denies: nausea, vomiting, diarrhea Genitourinary: Reports: other - + guzman Neurologic: Denies: headache Psychiatric: Denies: depression Skin: Denies: rash Hematologic: Denies: bleeding Musculoskeletal: Denies: pain Allergies: Coded Allergies: No Known Allergies (Unverified , 12/04/19) Objective Vital Signs Last 24 Hour Vital Signs Date Time Temp Pulse Resp B/P (MAP) Pulse Ox O2 Delivery O2 Flow Rate FiO2 12/18/19 12:00 97.1 65 18 120/75 (90) 96 12/18/19 09:00 Room Air 12/18/19 08:38 76 117/72 12/18/19 08:38 76 117/72 12/18/19 08:00 97.4 76 18 117/72 (87) 98 12/18/19 04:00 98.1 60 18 134/70 (91) 95 12/18/19 00:00 98.2 60 16 122/60 (80) 95 12/17/19 21:11 70 141/69 12/17/19 20:34 Room Air 12/17/19 20:00 97.3 70 18 141/69 (93) 96 12/17/19 16:00 98.7 66 21 121/73 (89) 97 Height (Feet): 5 Height (Inches): 6.00 Weight (Pounds): 180 General Appearance: no acute distress HEENT: normocephalic, atraumatic, anicteric, mucous membranes moist Respiratory/Chest: lungs clear, normal breath sounds, no respiratory distress, no accessory muscle use Cardiovascular: normal rate, regular rhythm, no gallop/murmur, no JVD Abdomen: normal bowel sounds, soft, non tender, no organomegaly, non distended Genitourinary: other - + guzman - urine clearer Extremities: no cyanosis Skin: no rash Neurologic/Psychiatric: alert, oriented x 3, responsive Lymphatic: no neck adenopathy Musculoskeletal: no effusion Objective Procedure: XRAY Chest 1v Procedure: XRAY Chest 1v Reason for study: Reason For Exam: SOB Comparison films: None. FINDINGS: A single one view chest is obtained. Vascularity is normal. Streaky atelectasis is noted right lung base. Cardiac and mediastinal silhouette are within normal limits. CP angles are sharp. The bony thorax appear unremarkable. IMPRESSION: Streaky basilar atelectasis. Microbiology Date/Time Source Procedure Growth Status 12/11/19 11:40 Blood Blood Culture - Final NO GROWTH AFTER 5 DAYS Complete 12/04/19 06:10 Nasal Nares MRSA Culture - Final Staphylococcus Aureus - Mrsa Complete 12/11/19 11:30 Urine,Suprapubic Urine Culture - Final Enterobacter Cloacae Complex Complete Laboratory Tests Test 12/18/19 04:45 White Blood Count 7.4 K/UL (4.8-10.8) Red Blood Count 3.70 M/UL (4.70-6.10) L Hemoglobin 10.6 G/DL (14.2-18.0) L Hematocrit 31.7 % (42.0-52.0) L Mean Corpuscular Volume 86 FL (80-99) Mean Corpuscular Hemoglobin 28.7 PG (27.0-31.0) Mean Corpuscular Hemoglobin Concent 33.6 G/DL (32.0-36.0) Red Cell Distribution Width 14.2 % (11.6-14.8) Platelet Count 344 K/UL (150-450) Mean Platelet Volume 6.5 FL (6.5-10.1) Neutrophils (%) (Auto) 64.1 % (45.0-75.0) Lymphocytes (%) (Auto) 19.5 % (20.0-45.0) L Monocytes (%) (Auto) 11.1 % (1.0-10.0) H Eosinophils (%) (Auto) 4.1 % (0.0-3.0) H Basophils (%) (Auto) 1.2 % (0.0-2.0) Sodium Level 141 MMOL/L (136-145) Potassium Level 4.0 MMOL/L (3.5-5.1) Chloride Level 108 MMOL/L (98-107) H Carbon Dioxide Level 21 MMOL/L (21-32) Blood Urea Nitrogen 18 mg/dL (7-18) Creatinine 1.3 MG/DL (0.55-1.30) Estimat Glomerular Filtration Rate 54.4 mL/min (>60) Glucose Level 88 MG/DL (74-106) Calcium Level 8.3 MG/DL (8.5-10.1) L Phosphorus Level 3.3 MG/DL (2.5-4.9) Magnesium Level 1.7 MG/DL (1.8-2.4) L Total Bilirubin 0.4 MG/DL (0.2-1.0) Aspartate Amino Transf (AST/SGOT) 46 U/L (15-37) H Alanine Aminotransferase (ALT/SGPT) 33 U/L (12-78) Alkaline Phosphatase 82 U/L (46-116) Total Protein 6.3 G/DL (6.4-8.2) L Albumin 2.4 G/DL (3.4-5.0) L Globulin 3.9 g/dL Albumin/Globulin Ratio 0.6 (1.0-2.7) L Current Medications Medications (Trade) Dose Ordered Sig/Octavia Route PRN Reason Start Time Stop Time Status Last Admin Dose Admin Acetaminophen (Tylenol) 650 mg Q6H PRN ORAL Mild Pain (Pain Scale 1-3) 12/04/19 12:15 01/03/20 12:14 12/13/19 05:47 Amlodipine Besylate (Norvasc) 2.5 mg DAILY ORAL 12/14/19 09:00 01/09/20 08:59 12/18/19 08:38 Carvedilol (Coreg) 12.5 mg EVERY 12 HOURS ORAL 12/09/19 21:00 01/08/20 20:59 12/18/19 08:38 Cefepime HCl 1 gm/ Dextrose 55 ml @ 110 mls/hr Q12H IVPB 12/15/19 18:00 12/22/19 17:59 12/18/19 05:45 Docusate Sodium (Colace) 100 mg TID ORAL 12/13/19 13:00 01/10/20 17:59 12/17/19 18:05 Lorazepam (Ativan) 1 mg BEDTIME PRN ORAL Insomnia 12/14/19 22:30 12/21/19 22:29 12/15/19 23:07 Metoclopramide HCl (Reglan) 10 mg Q6H PRN IVP Nausea & Vomiting 12/13/19 11:00 01/12/20 10:59 12/13/19 11:18 Pantoprazole (Protonix) 40 mg EVERY 12 HOURS ORAL 12/17/19 21:00 01/16/20 20:59 12/18/19 08:38 Cecy Schreiber MD December 18, 2019 14:55
[2019-12-18] MEDS ORDERED: Tubing IV Secondary IV ONE (15:19)
[2019-12-18] MEDS ORDERED: NS Irrig 1000ml ONE (15:19)
[2019-12-18] MEDS ORDERED: NS 275ml ONE (15:19)
--- NOTE | 2019-12-18 15:20 | NUR ---
NURSE NOTES: Patient discharged without distress. Patient provided with discharge education and verbalized understanding of provided education. Patient to have follow up with home health nurse tomorrow per Dr. Lindsay. Patient provided with Rx and signed for. IV removed intact. Patient provided with front wheel walker for home use. Patent escorted to private vehicle via wheelchair.
--- NOTE | 2019-12-19 17:53 | Discharge Summary ---
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 Treatment options were explained to him in great length including all potential complications. He signed a consent. Patient admitted for elective surgery. Consultations Dr. Riddle-IM/pulmo Dr. Arteaga-general surgeon Dr. Schreiber-ID consult Dr. Foster -nephro Procedures s/p 12/04/[address] Lindsay Radical cystectomy, prostatectomy, lymph node dissection, and creation of neobladder Hospital Course patient admitted for elective surgery. patient subsequently undergone radical cystectomy, prostatectomy, lymph node dissection and creation of neobladder on 12/03 pathology of bladder and prostate revealed no residual urothelial carcinoma , marked chronic granulomatous inflammation, focal prostatic adenocarcinoma benign right and left ureter ,no tumor identified postoperatively patient was kept NPO until bowel sounds return Michael and suprapubic catheter were flushed with 30 cc normal saline 3 times a day as per general surgeon recommendation empiric IV antibiotics and IV fluids continued patient was encouraged out of bed and ambulate as tolerated incentive spirometry was encouraged while in the bed labs were closely monitored intake and output closely monitored patient was noted to be slightly distended abdominal x-ray revealed moderate distention of multiple loops of small bowel, however there was a bowel gas throughout the colon the bowel gas pattern most likely indicative of ileus versus partial small bowel obstruction n.p.o. status was continued, ambulation was encouraged follow-up KUB on 12/10 revealed stable postoperative changes, probable postoperative ileus. Ureteral stents in place. Postoperative ileus was gradually resolving n.p.o. status continued until return of the bowel function. when bowel function returned , patient started on clear liquid diet antiemetic provided as needed pain management was addressed drains remained stable diet was advanced as tolerated on 12/10 noted significant leukocytosis WBC 22.8, patient was afebrile ID consult was requested patient was pancultured blood cultures were negative urine culture revealed Enterobacter antibiotics regimen was optimized as per ID specialist recommendation leukocytosis trended down and resolved, no fevers patient completed antibiotic while in the hospital. patient also developed acute renal failure on 12/10 creatinine was slowly trending up until on 12/10 creatinine reached 3.2 dairy consultant seen and evaluated patient renal ultrasound revealed echogenic foci with shadowing in the right kidney presumably right renal stones no hydronephrosis acute kidney injury was most likely due to nephrotoxic medication i.e. Toradol Toradol was stopped , and pain management was addressed with other analgesics creatinine trending down , and prior to discharge creatinine 1.3. electrolytes remained stable dairy consultant recommended to avoid nonsteroidal inflammatory medication in future hemoglobin AND hematocrit were closely monitored with goal to keep hemoglobin above 7 anemia work-up was consistent with anemia of chronic disease prior to discharge hemoglobin 10.6 , hematocrit 21.7. midline wound [place] were removed Steri-Strips applied drain removed prior drain site from prior drain removal remained clean dry and intact suprapubic and Michael catheter provided functional good output no pain , patient was able to tolerate diet, patient had bowel movement, ambulated without difficulties blood pressure was closely monitored and managed with current regimen, remained stable prescription provided discharge instruction provided surgeon cleared patient for discharge home with home health services outpatient follow up with urologist as scheduled FINAL DIAGNOSES 1. Invasive bladder cancer 2. s/p Radical cystectomy, prostatectomy, lymph node dissection, and creation of neobladder. 3. Postoperative ileus-resolved 4. Sepsis 5. Enterobacter UTI -s/p treatment 6. Leukocytosis - resolved 7. Acute renal failure likely due to Toradol - resolved 8. Anemia 9. Hypertension 10. Dyslipidemia 11. Osteoarthritis Discharge Medications Continued Medications: Amlodipine Besylate* (Amlodipine Besylate*) 5 Mg Tablet 5 MG ORAL DAILY for HTN, TAB (This prescription has been renewed) Carvedilol* (Carvedilol*) 12.5 Mg Tablet 12.5 MG ORAL EVERY 12 HOURS for HTN, TAB (This prescription has been renewed) Valsartan (Diovan) 320 Mg Tablet 320 MG ORAL DAILY for HTN, TAB (This prescription has been renewed) Discharge Condition Upon Discharge: stable Discharge Vital Signs Last Vital Signs Date Time Temp Pulse Resp B/P (MAP) Pulse Ox O2 Delivery O2 Flow Rate FiO2 12/18/19 12:00 97.1 65 18 120/75 (90) 96 12/18/19 09:00 Room Air Discharge Disposition Patient was discharged home with home health services Discharge Instructions Discharge Instructions Special Instructions I have been assigned to complete a D/C Summary on this account. I was not involved in the patient management Dot Mathias NP December 19, 2019 17:53
== END 2019-12-18 15:20 | disposition home health service (06) | DRG 653 ==
LOC: SDSOVERFLO 05:40 → 3E 13:45
PROC: 0TR Urinary System, Replacement (ICD-10-PCS; principal; 2019-12-04 07:30)
PROC: 0VT00ZZ Resection of Prostate, Open Approach (ICD-10-PCS; principal; 2019-12-04 07:30)
PROC: 07TC0ZZ Resection of Pelvis Lymphatic, Open Approach (ICD-10-PCS; principal; 2019-12-04 07:30)
DX: C67.9 Malignant neoplasm of bladder, unspecified (principal); A41.9 Sepsis, unspecified organism; K56.7 Ileus, unspecified; N39.0 Urinary tract infection, site not specified; N17.9 Acute kidney failure, unspecified; C79.82 Secondary malignant neoplasm of genital organs; I10 Essential (primary) hypertension; E78.5 Hyperlipidemia, unspecified; M19.90 Unspecified osteoarthritis, unspecified site; T39.8X5A Adverse effect of other nonopioid analgesics and antipyretics, not elsewhere classified, initial encounter; Y92.230 Patient room in hospital as the place of occurrence of the external cause; D64.9 Anemia, unspecified; E55.9 Vitamin D deficiency, unspecified; Z22.322 Carrier or suspected carrier of Methicillin resistant Staphylococcus aureus; N48.89 Other specified disorders of penis
CPT/HCPCS: 36415; 71045; 74018; 76770; 80048; 80053; 80061; 81001; 82607; 82728; 82746; 83540; 83550; 83735; 83880; 84100; 84300; 84443; 84550; 85007; 85025; 85651; 86140; 86850; 86900; 86901; 86920; 87040; 87081; 87086; 87181; 89050; 94003; 94150; J2180; J2405; J2765; J7030